=== PATIENT | female | born 1960 | race Caucasian/White ===

== ENCOUNTER 2019-08-13 12:39 | Outpatient (CLI) | payer MEDICARE, SELFPAY ==
--- NOTE | 2019-08-13 12:46 | MR_ITS ---
WS: [id number] MRI CERVICAL SPINE NONCONTRAST TECHNIQUE: Sagittal T1, T2 and STIR imaging. Axial T2, gradient, and fiesta imaging. CLINICAL INFORMATION: DEGENERATION INTERVERTEBRAL DISC CERVICAL COMPARISON: CT April 04, 2019 FINDINGS: Mild cervical curve. No high-grade central canal narrowing. Cord signal is normal. Disc bulging worse at C4-5. Anterior cervical fusion C5-C7. C2-C3: Normal. C3-C4: No significant disc bulging. Mild disc bulging. Mild facet arthropathy. Spinal canal and genevieve en are patent. C4-C5: Mild disc bulging with broad-based central disc protrusion. Moderate central canal stenosis. M oderate bilateral bony foraminal narrowing. Mild facet arthropathy. C5-C6: Anterior cervical fusion. Mild left and no significant right foraminal narrowing. Spinal canal is patent. C6-C7: Anterior cervical fusion. Mild to moderate left and no significant right foraminal narrowing. Mild central canal stenosis. C7-T1: No significant disc bulging. Spinal canal and foramen are patent. Tiny central disc protrusion T2-3. Visualized brain stem structures: Normal. Prevertebral soft tissues: Normal. MR/MR cervical spin wo con* [id number] IMPRESSION: 1. Postoperative changes anterior cervical fusion C5-C7. No high-grade central canal stenosis. 2. Cord signal is normal. 3. Disc bulging worse at C4-C5 with moderate central canal stenosis. 4. Multilevel mild to moderate bony foraminal narrowing worse at bilateral C4- 5, left C5-6, left C6-C7,
--- NOTE | 2019-08-13 12:46 | MR_ITS ---
WS: [id number] MRI LUMBAR SPINE WITH CONTRAST TECHNIQUE: Sagittal T1, T2 and STIR imaging. Axial T1 and T2 imaging. Post gadolinium imaging was obt ained. CLINICAL INFORMATION: LUMBAR POST-LAMINECTOMY SYNDROME COMPARISON: None. FINDINGS: Mild lumbar curve. No acute compression. No high-grade central canal stenosis. Prior postoperative ch anges L5-S1. Normal postoperative enhancement. Slight retrolisthesis L2 on L3. L1-L2: Mild annular bulging. Mild facet arthropathy. Spinal canal and foramen are patent. L2-L3: Right pericentral disc protrusion slightly impinges the traversing right L3 nerve root. Mild f acet arthropathy. Spinal canal and foramen are patent. L3-L4: Left subarticular disc protrusion impinges the traversing left L4 nerve root in the left subar ticular recess. Mild central canal stenosis. Mild facet arthropathy. Mild left foraminal narrowing. L4-L5: Mild annular bulging. Mild facet arthropathy. Mild left and no significant right foraminal nabil rowing. L5-S1: Prior postoperative changes laminectomy defects. Right eccentric disc osteophyte ridging with mild right foraminal narrowing. Left foramen is patent. Spinal canal is patent. Moderate facet arthro melly. Visualized pelvic bony structures: Normal. Paravertebral soft tissues: Normal. MR/MR lumbar spine wo/w con [id number] IMPRESSION: 1. Mild lumbar curve. No acute compression. No high-grade central canal stenos is. 2. Prior laminectomy defects L5-S1. No recurrent disc protrusion. 3. Mild right L5-S1 foraminal narrowing due to right eccentric disc osteophyte complex. 4. Right pericentral disc protrusion L2-3 with slight encroachment traversing L3 nerve root. 5. Mild central canal stenosis L3-4 with narrowing of the left greater than ri ght subarticular recess. 6. Mild to moderate facet arthropathy L3-L5.
--- NOTE | 2019-08-13 12:48 | XR_ITS ---
WS: [id number] XR lumbar spine f/e only [id number] REASON FOR EXAM: LUMBAR POST-LAMINECTOMY SYNDROME FINDINGS: A bat wing deformity with a pseudoarthrosis is noted on the right side. The disc spaces all appear to be essentially normal and there is no fractures noted. 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
--- NOTE | 2019-08-13 12:48 | XR_ITS ---
WS: [id number] XR cervical spine fl/ex [id number] REASON FOR EXAM: DEGENERATION, INTERVERTEBRAL DISC CERVICAL FINDINGS: Anterior fusion C5-C6-C7 with intraspinal spacers. Good alignment is seen. The remaining lateral the discs show no definite herniation heart degenerate changes. Flexion extension views were felt to be normal with normal motion. XR/XR cervical spine fl/ex [id number] IMPRESSION: Stable fusion anteriorly C5-C6-C7 with intraspinal spacers.
== END 2019-08-13 12:40 | disposition home or self-care (01) ==
LOC: RADWPI 12:44
PROVIDERS: Family Provider Electrodiagnostic Medicine; PCP Electrodiagnostic Medicine; Visit Provider Licensed Practical Nurse
DX: M96.1 Postlaminectomy syndrome, not elsewhere classified (principal); M50.30 Other cervical disc degeneration, unspecified cervical region; Z98.1 Arthrodesis status; M96.0 Pseudarthrosis after fusion or arthrodesis; M51.26 Other intervertebral disc displacement, lumbar region; M48.02 Spinal stenosis, cervical region
CPT/HCPCS: 72040; 72120; 72141; 72158; A9579

== ENCOUNTER 2020-08-03 14:09 | Emergency (ER) | payer MEDICARE, SELFPAY ==
[2020-08-03 14:13] VITALS: BP 173/115; PULSE 98; RESP 18; TEMP 37.3; O2SAT 98; BMI 31.0
--- NOTE | 2020-08-03 14:58 | XRR_ITS ---
PROCEDURE INFORMATION: Exam: XR Right Hip Exam date and time: 08/03/2020 3:10 PM Age: 60 years old Clinical indication: Hip pain; Right hip TECHNIQUE: Imaging protocol: XR Right hip. Views: 1 view hip with pelvis when performed. COMPARISON: CT abdomen pelvis w con* [id number] 07/27/2018 11:36 PM FINDINGS: Bones/joints: No fracture. Moderate joint space narrowing. Normal contour of the femoral head. Soft tissues: Unremarkable. XR/XR hip RT 2-3V wo/w pel* [id number] IMPRESSION: No acute findings. Degenerative/arthritic changes.
--- NOTE | 2020-08-03 16:03 | MRR_ITS ---
PROCEDURE INFORMATION: Exam: MR Lumbar Spine Without Contrast Exam date and time: 08/03/2020 5:00 PM Age: 60 years old Clinical indication: Sciatica; Right; Prior surgery; Surgery date: 6+ months; Surgery type: Laminectomy; Patient HX: R hip pain x 3 mos. Sever x 3 days with weakness; Additional info: R leg weakness, overflow incont TECHNIQUE: Imaging protocol: Multiplanar magnetic resonance images of the lumbar spine without intravenous contrast. COMPARISON: MR lumbar spine wo/w con [id number] 08/13/2019 12:47 PM FINDINGS: Vertebrae: Unremarkable. Spinal cord: Normal signal. No cord compression. L1-L2: No significant disc disease. No significant spinal canal stenosis. No neural foraminal stenosis. L2-L3: Mild disc bulge. Bilateral facet and ligamentum flavum hypertrophy. No spinal canal stenosis. Mild left neural foraminal narrowing. L3-L4: Disc bulge. Bilateral facet and ligamentum flavum hypertrophy. No spinal canal stenosis. Mild left neural foraminal narrowing. L4-L5: Disc bulge. Bilateral facet hypertrophy. No neural foraminal narrowing. L5-S1: Disc bulge. Bilateral facet hypertrophy. Moderate right neural foraminal narrowing. Soft tissues: Unremarkable. MR/MR lumbar spine wo con* [id number] IMPRESSION: No acute abnormality. Multilevel degenerative disc disease with neural foraminal narrowing. Mild left neural foraminal narrowing at L2-L3, L3-L4, moderate right at L5-S1.
--- NOTE | 2020-08-03 16:48 | W.ED.EXTPRO ---
Documented by User: Ralf Granados DO 08/04/20 07:58 HPI - Extremity Problem General: Chief complaint: Extremity Injury, Lower Stated complaint: no feeling, ability to bend upper part/right leg Time Seen by Provider: 08/03/20 15:37 History of Present Illness: HPI Narrative: 60-year-old female presents emergency room with complaint of right leg weakness. She previously had a back surgery and year ago she had an MRI and there are some concerns about some L3 nerve impingement there is also some concern about cervical issues. Is not having any neck pain at all has developed worsening radicular leg pain to the point now she is not able to flex her leg at all. She does have good dorsi and plantar flex strength on that right leg. She has had a little bit of difficulty with urination sounds like it may be overflow incontinence with occasional small losses. She is not had any fecal incontinence. MD Complaint: extremity pain Onset (ago): day(s) Pain Consistency: constant Location: right and lower extremity Quality: aching Relieving factors: immobilization Exacerbating factors: weight bearing and walking Associated symptoms: Deny arthralgias, chest pain, fever(s), myalgias, rash or short of breath Context: other (History of previous lumbar surgery) Review of Systems Const: Denies: fever(s) ENMT: Denies: throat pain, ear or mastoid pain, nasal discharge or nasal congestion Card: Denies: chest pain Resp: Denies: dyspnea, productive cough or non-productive cough GI: Denies: abdominal pain, nausea, vomiting, hematemesis, coffee ground emesis, diarrhea, constipation, bloating, hematochezia or melena : Denies: flank pain, difficulty voiding, dysuria, urinary frequency or urinary urgency Skin/Breast: Denies: rash PFSH ED PFSH: Medical History Cervical disc disorder with myelopathy of mid-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 Lumbar disc disease Lumbar post-laminectomy syndrome Spondylolisthesis of cervical region Stenosis of cervical spine with myelopathy Surgical History History of fusion of cervical spine (06/05/16) C5-C6, C6-C7 ACDFF History of lumbosacral spine surgery 2013 L5-S1 decompression Family History Grandmother Cancer Diabetes Heart disease Mother Osteoarthritis Social History Smoking and tobacco status: current every day smoker Alcohol intake: never Household members: children Marital status: / Current occupational status: disabled History of recent travel: No Physical Exam Const: COMMON NORMALS: no acute distress GENERAL APPEARANCE: cooperative and comfortable ORIENTATION/CONSCIOUSNESS: Yes awake, Yes oriented to person, Yes oriented to place and Yes oriented to time HENMT: COMMON NORMALS: normocephalic, atraumatic and hearing grossly normal bilaterally HEAD & SCALP: normocephalic and atraumatic Neck/C-Spine: COMMON NORMALS: no JVD Resp: COMMON NORMALS: normal respiratory effort, No retractions, No use of accessory muscles and clear to auscultation bilaterally AUSCULTATION: clear to auscultation bilaterally Cardio: COMMON NORMALS: no JVD, regular rate, regular rhythm and No murmurs present (Cardio) RATE: regular rate RHYTHM: regular rhythm GI: COMMON NORMALS: Soft to palpation and No hepatosplenomegaly present AUSCULTATION: Yes normoactive bowel sounds PALPATION: Yes Soft to palpation, No Tenderness to palpation present (GI), No Guarding due to palpation present (GI) and Yes No hepatosplenomegaly present Extremity: COMMON NORMALS: normal to inspection, capillary refill normal, no clubbing, cyanosis or edema, no calf tenderness and no pedal edema NARRATIVE EXTREMITY EXAM: Straight leg raising is positive on the right leg. There is normal deep tendon reflex at the patellar tendon bilaterally. Sensation normal dorsum plantar flex strength normal weakness at the hip flexors with minimal effort against gravity on the right normal on the left. Neuro: SENSORIUM/ORIENTATION: Yes oriented to person, Yes oriented to place and Yes oriented to time Skin: COMMON NORMALS: no rashes or lesions noted GENERAL SKIN EXAM: no rashes or lesions noted Course Vital Signs: Vital signs: Vital Signs Temperature 99.2 F 08/03/20 14:13 Pulse Rate 91 08/03/20 18:54 Respiratory Rate 18 08/03/20 18:32 Blood Pressure 167/92 08/03/20 18:54 Pulse Oximetry 96 08/03/20 18:54 MDM - Extremity (Nontraumatic) MDM Narrative: Medical decision making narrative: Concerning for rapid development and significant strength loss. Also little concerned that the complaint of frequent urination may be evidence of urinary retention with overflow incontinence. MRI of the lumbar spine ordered. Care transferred to Dr. Be at change of shift. Discharge Plan Discharge Patient Disposition: Home Clinical Impression: Low back pain Qualifiers: Chronicity: chronic Back pain laterality: unspecified Sciatica presence: without sciatica Qualified Code(s): M54.5 - Low back pain Condition: Stable Prescriptions: No Action gabapentin 300 mg capsule 300 mg PO TID RF: 0 metoprolol succinate 25 mg tablet extended release 24 hr 25 mg PO DAILY@20 RF: 0 duloxetine [Cymbalta] 30 mg capsule,delayed release(DR/EC) 30 mg PO DAILY@20 RF: 0 tizanidine [Zanaflex] 4 mg capsule 4 mg PO TID PRN (Reason: Muscle Spasm) RF: 0 ibuprofen 800 mg tablet 800 mg PO Q8H PRN (Reason: Pain) RF: 0 fluticasone propionate 50 mcg/actuation spray,suspension 2 spray INTRANASAL DAILY PRN (Reason: Allergy Symptoms) RF: 0 glimepiride 4 mg tablet 2 mg PO BID@06,20 RF: 0 omeprazole 40 mg capsule,delayed release(DR/EC) 40 mg PO DAILY@20 RF: 0 Tylenol Extra Strength 500 mg Tablet 1,500 mg PO PRN RF: 0 simvastatin 40 mg tablet 40 mg PO DAILY@20 RF: 0 metformin 500 mg tablet extended release 24 hr 500 mg PO BID@06,20 RF: 0 Excedrin Migraine 250-250-65 mg Tablet 2 tab PO PRN RF: 0 Discharge Orders: Discharge ED (Routine); Ordered 08/03/20 Ordered By: Arie Be Referrals: Italo Colindres, [Primary Care Provider] - 1-3 days Discharge Diet: Advance as tolerated Discharge Activity: Resume usual activity Patient Instructions: Acute Low Back Pain (ED), Opioid Safety Coding Level of Care Code ED Traditional Chinese Herbalist for Chg Fwd Documented by User: Arie Be MD 08/03/20 19:02 HPI - Extremity Problem General: Chief complaint: Extremity Injury, Lower Stated complaint: no feeling, ability to bend upper part/right leg Time Seen by Provider: 08/03/20 15:37 PFSH ED PFSH: Medical History Cervical disc disorder with myelopathy of mid-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 Lumbar disc disease Lumbar post-laminectomy syndrome Spondylolisthesis of cervical region Stenosis of cervical spine with myelopathy Surgical History History of fusion of cervical spine (06/05/16) C5-C6, C6-C7 ACDFF History of lumbosacral spine surgery 2013 L5-S1 decompression Family History Grandmother Cancer Diabetes Heart disease Mother Osteoarthritis Social History Smoking and tobacco status: current every day smoker Alcohol intake: never Household members: children Marital status: / Current occupational status: disabled History of recent travel: No Course Vital Signs: Vital signs: Vital Signs Temperature 99.2 F 08/03/20 14:13 Pulse Rate 91 08/03/20 18:54 Respiratory Rate 18 08/03/20 18:32 Blood Pressure 167/92 08/03/20 18:54 Pulse Oximetry 96 08/03/20 18:54 MDM - Extremity (Nontraumatic) MDM Narrative: Medical decision making narrative: Anette presents here with low back pain. MRI showed no signs of cord compression. She is to follow-up with her PCP. She has no signs of epidural abscess. She is return if worsening.She does have degenerative disc disease Imaging Data^: MRI: Radiologist's impression: [address] [address] Magnetic Resonance Report Signed Patient: Anette Liang Unit #: [id number] : 1960 Age/Sex: 60 / F ADM Date: 08/03/20 Loc: ER Room/Bed: Attending Dr: Ordering Provider/Ordering MD: Ralf Granados DO Date of Service: 08/03/20 Procedure(s): MR lumbar spine wo con* [id number] Accession Number(s): [id number] Report Number: [id number] PROCEDURE INFORMATION: Exam: MR Lumbar Spine Without Contrast Exam date and time: 08/03/2020 5:00 PM Age: 60 years old Clinical indication: Sciatica; Right; Prior surgery; Surgery date: 6+ months; Surgery type: Laminectomy; Patient HX: R hip pain x 3 mos. Sever x 3 days with weakness; Additional info: R leg weakness, overflow incont TECHNIQUE: Imaging protocol: Multiplanar magnetic resonance images of the lumbar spine without intravenous contrast. COMPARISON: MR lumbar spine wo/w con [id number] 08/13/2019 12:47 PM FINDINGS: Vertebrae: Unremarkable. Spinal cord: Normal signal. No cord compression. L1-L2: No significant disc disease. No significant spinal canal stenosis. No neural foraminal stenosis. L2-L3: Mild disc bulge. Bilateral facet and ligamentum flavum hypertrophy. No spinal canal stenosis. Mild left neural foraminal narrowing. L3-L4: Disc bulge. Bilateral facet and ligamentum flavum hypertrophy. No spinal canal stenosis. Mild left neural foraminal narrowing. L4-L5: Disc bulge. Bilateral facet hypertrophy. No neural foraminal narrowing. L5-S1: Disc bulge. Bilateral facet hypertrophy. Moderate right neural foraminal narrowing. Soft tissues: Unremarkable. MR/MR lumbar spine wo con* [id number] IMPRESSION: No acute abnormality. Multilevel degenerative disc disease with neural foraminal narrowing. Mild left neural foraminal narrowing at L2-L3, L3-L4, moderate right at L5-S1. Discharge Plan Discharge Patient Disposition: Home Clinical Impression: Low back pain Qualifiers: Chronicity: chronic Back pain laterality: unspecified Sciatica presence: without sciatica Qualified Code(s): M54.5 - Low back pain Condition: Stable Prescriptions: No Action gabapentin 300 mg capsule 300 mg PO TID RF: 0 metoprolol succinate 25 mg tablet extended release 24 hr 25 mg PO DAILY@20 RF: 0 duloxetine [Cymbalta] 30 mg capsule,delayed release(DR/EC) 30 mg PO DAILY@20 RF: 0 tizanidine [Zanaflex] 4 mg capsule 4 mg PO TID PRN (Reason: Muscle Spasm) RF: 0 ibuprofen 800 mg tablet 800 mg PO Q8H PRN (Reason: Pain) RF: 0 fluticasone propionate 50 mcg/actuation spray,suspension 2 spray INTRANASAL DAILY PRN (Reason: Allergy Symptoms) RF: 0 glimepiride 4 mg tablet 2 mg PO BID@06,20 RF: 0 omeprazole 40 mg capsule,delayed release(DR/EC) 40 mg PO DAILY@20 RF: 0 Tylenol Extra Strength 500 mg Tablet 1,500 mg PO PRN RF: 0 simvastatin 40 mg tablet 40 mg PO DAILY@20 RF: 0 metformin 500 mg tablet extended release 24 hr 500 mg PO BID@,20 RF: 0 Excedrin Migraine 250-250-65 mg Tablet 2 tab PO PRN RF: 0 Discharge Orders: Discharge ED (Routine); Ordered 08/03/20 Ordered By: Arie Be Referrals: Italo Colindres DO [Primary Care Provider] - 1-3 days Discharge Diet: Advance as tolerated Discharge Activity: Resume usual activity Patient Instructions: Acute Low Back Pain (ED), Opioid Safety Coding Level of Care Code ED Traditional Chinese Herbalist for Teresa Ashby
--- NOTE | 2020-08-03 17:24 | PC.NURSE ---
patient taken to [facility] for mri
--- NOTE | 2020-08-03 17:52 | PC.NURSE ---
patient returned from mri
[2020-08-03 18:32] VITALS: BP 163/64; PULSE 84; RESP 18; O2SAT 96
[2020-08-03 18:54] VITALS: BP 167/92; PULSE 91; O2SAT 96
== END 2020-08-03 18:57 | disposition home or self-care (01) ==
PROVIDERS: Emergency Provider Emergency Medicine; PCP Electrodiagnostic Medicine
DX: M54.5 Low back pain (principal); Z79.84 Long term (current) use of oral hypoglycemic drugs; F17.210 Nicotine dependence, cigarettes, uncomplicated
CPT/HCPCS: 51798; 72148; 73502; 99283

== ENCOUNTER 2021-05-26 03:50 | Emergency (ER) | payer MEDICARE, SELFPAY ==
[2021-05-26 04:02] VITALS: BP 180/93; PULSE 80; RESP 14; TEMP 36.7; O2SAT 94; BMI 29.6
--- NOTE | 2021-05-26 04:19 | ED_ITS ---
HPI - General Adult General: Chief complaint: General Medical Stated complaint: Leg pain Lt worse than Rt Time Seen by Provider: 05/26/21 04:00 Source: patient Mode of arrival: ambulatory Limitations: no limitations History of Present Illness: HPI narrative: 61-year-old female history of chronic back pain states over the last 1 to 2 weeks she has been having increasing left lower back pain with radiation down her left leg states that with standing or walking she has a sharp shooting pain down her leg states that her pain is mostly of 5 out of 10 improved with rest. Denies any bowel incontinence denies any injuries. Associated symptoms: Deny chest pain, dyspnea, headache(s), nausea, rash or vomiting Review of Systems Const: Denies: fever(s), chills, body aches or change in appetite Eyes: Denies: blurry vision or eye discomfort ENMT: Denies: throat pain or dental pain Card: Denies: chest pain Resp: Denies: dyspnea GI: Denies: abdominal pain, nausea, vomiting or diarrhea : Denies: dysuria Musc: Reports: back pain; Denies: neck pain Skin/Breast: Denies: rash Neuro: Denies: headache(s) Psych: Denies: depression Sha/Lymph: Denies: easy bruising All/Imm: Denies: urticaria PFSH ED PFSH: Medical History Cervical disc disorder with myelopathy of mid-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 Lumbar disc disease Lumbar post-laminectomy syndrome Spondylolisthesis of cervical region Stenosis of cervical spine with myelopathy Surgical History History of fusion of cervical spine (06/05/16) C5-C6, C6-C7 ACDFF History of lumbosacral spine surgery 2013 L5-S1 decompression Family History Grandmother Cancer Diabetes Heart disease Mother Osteoarthritis Social History Smoking and tobacco status: current every day smoker Alcohol intake: never Household members: children Marital status: / Current occupational status: disabled History of recent travel: No Physical Exam Const: COMMON NORMALS: no acute distress, patient oriented x3 and healthy appearing HENMT: COMMON NORMALS: normocephalic and atraumatic HEAD & SCALP: normocephalic and atraumatic Eye: COMMON NORMALS: EOMs intact bilaterally Neck/C-Spine: COMMON NORMALS: full ROM and supple Chest: COMMONS NORMALS: normal inspection of the chest Resp: COMMON NORMALS: normal respiratory effort, No retractions and No use of accessory muscles Cardio: COMMON NORMALS: regular rate RATE: regular rate GI: COMMON NORMALS: Normal to inspection, nondistended, normoactive bowel s ounds present, Soft to palpation, non-tender and no masses PALPATION: Yes Soft to palpation Back/Pelvis: OTHER: No midline tenderness tenderness to left lower back Extremity: COMMON NORMALS: normal to inspection and full ROM OTHER: Bilateral distal pulses intact no swelling no calf tenderness Neuro: COMMON NORMALS: patient oriented x3, moves all extremities and no focal motor deficits Psych: COMMON NORMALS: mental status grossly normal, Normal thought process present and cooperative THOUGHT PROCESS: Normal thought process present Skin: COMMON NORMALS: no rashes or lesions noted and no wounds GENERAL SKIN EXAM: no rashes or lesions noted Course Vital Signs: Vital signs: Vital Signs Temperature 98.1 F 05/26/21 04:02 Pulse Rate 80 05/26/21 04:02 Respiratory Rate 14 05/26/21 04:02 Blood Pressure 180/93 05/26/21 04:02 Pulse Oximetry 94 05/26/21 04:02 MDM - General Adult MDM Narrative: Medical decision making narrative: Patient presents with left low back pain with sciatica down her left leg. No signs of cord compression or epidural abscess she has no saddle anesthesia able ambulate. Lower legs no swelling no signs of DVT good pulses distally we will give her pain meds steroids place her on 5 days of steroids she is a diabetic I told her to watch her glucose closer and to monitor her diet she is to follow-up with PCP and return if worsening. Discharge Plan Discharge Patient Disposition: Home Clinical Impression: Sciatica of left side, Low back pain Condition: Stable Prescriptions: New hydrocodone-acetaminophen 5-325 mg tablet 1 tab PO Q6H PRN (Reason: pain) Qty: 14 RF: 0 prednisone 50 mg tablet 50 mg PO DAILY Qty: 5 RF: 0 No Action gabapentin 300 mg capsule 300 mg PO TID RF: 0 metoprolol succinate 25 mg tablet extended release 24 hr 25 mg PO DAILY@20 RF: 0 duloxetine [Cymbalta] 30 mg capsule,delayed release(DR/EC) 30 mg PO DAILY@20 RF: 0 tizanidine [Zanaflex] 4 mg capsule 4 mg PO TID PRN (Reason: Muscle Spasm) RF: 0 ibuprofen 800 mg tablet 800 mg PO Q8H PRN (Reason: Pain) RF: 0 fluticasone propionate 50 mcg/actuation spray,suspension 2 spray INTRANASAL DAILY PRN (Reason: Allergy Symptoms) RF: 0 glimepiride 4 mg tablet 2 mg PO BID@,20 RF: 0 omeprazole 40 mg capsule,delayed release(DR/EC) 40 mg PO DAILY@20 RF: 0 Tylenol Extra Strength 500 mg Tablet 1,500 mg PO PRN RF: 0 simvastatin 40 mg tablet 40 mg PO DAILY@20 RF: 0 metformin 500 mg tablet extended release 24 hr 500 mg PO BID@,20 RF: 0 Excedrin Migraine 250-250-65 mg Tablet 2 tab PO PRN RF: 0 Discharge Orders: Discharge ED (Routine); Ordered 05/26/21 Ordered By: Arie Be Referrals: Italo Colindres, [Primary Care Provider] - 1-3 days Discharge Diet: Advance as tolerated Discharge Activity: Resume usual activity Patient Instructions: Sciatica (ED), Opioid Safety Coding Level of Care Code ED Wink Cutter Operator for Teresa Ashby
[2021-05-26] MEDS: HYDROcodone-acetaminophen 7.5-325 mg Tablet 1 TAB PO (04:22)
[2021-05-26] MEDS: predniSONE 20 mg Tablet 60 MG PO (04:22)
== END 2021-05-26 04:28 | disposition home or self-care (01) ==
PROVIDERS: Emergency Provider Emergency Medicine; PCP Electrodiagnostic Medicine
DX: M54.42 Lumbago with sciatica, left side (principal); Z79.84 Long term (current) use of oral hypoglycemic drugs; F17.210 Nicotine dependence, cigarettes, uncomplicated
CPT/HCPCS: 99283; J7512

== ENCOUNTER 2021-06-24 08:31 | Emergency (ER) | payer MEDICARE, SELFPAY ==
[2021-06-24 08:48] VITALS: BP 177/113; PULSE 88; RESP 20; TEMP 36.8; O2SAT 97; BMI 29.6
--- NOTE | 2021-06-24 09:09 | ED_ITS ---
HPI - Extremity Problem General: Chief complaint: Extremity Problem,Nontraumatic Stated complaint: Lower back pain, all throughout legs aswell Time Seen by Provider: 06/24/21 08:33 Source: patient Mode of arrival: ambulatory Limitations: no limitations History of Present Illness: Patient complains about chronic low back pain that radiates down both legs. Patient says she has been here three times in the last 4 months for this and still having problems. She said medications not help that she is taken. Patient not follow-up Dr. Colindres. Patient also states she just started UTI symptoms last few days would like an antibiotic for that. MD Complaint: other (Chronic back pain) Onset (ago): year(s) Pain Consistency: intermittent Associated symptoms: Reports no associated symptoms Review of Systems General: Reports: 10 or more systems reviewed and unremarkable except in HPI and below : Reports: urinary frequency Musc: Reports: back pain (Chronic back pain that hurts with range of motion that radiates down the le) PFSH ED PFSH: Medical History Cervical disc disorder with myelopathy of mid-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 Lumbar disc disease Lumbar post-laminectomy syndrome Spondylolisthesis of cervical region Stenosis of cervical spine with myelopathy Surgical History History of fusion of cervical spine (06/05/16) C5-C6, C6-C7 ACDFF History of lumbosacral spine surgery 2013 L5-S1 decompression Family History Grandmother Cancer Diabetes Heart disease Mother Osteoarthritis Social History Smoking and tobacco status: current every day smoker Alcohol intake: never Household members: children Marital status: / Current occupational status: disabled History of recent travel: No Physical Exam Const: COMMON NORMALS: no acute distress GENERAL APPEARANCE: cooperative Resp: EFFORT & INSPECTION: Yes able to speak in complete sentences GI: INSPECTION: Yes normal to inspection Back/Pelvis: OTHER: Has tenderness both sciatic nerves down both legs thighs and down into the calf area. Patient able to raise legs. Able to ambulate. Course 2 Vital Signs: Vital signs: Vital Signs Temperature 98.3 F 06/24/21 09:33 Pulse Rate 88 06/24/21 09:33 Respiratory Rate 20 H 06/24/21 08:48 Blood Pressure 177/113 06/24/21 09:33 Pulse Oximetry 97 06/24/21 09:33 MDM - Extremity (Nontraumatic) Medical Decision Making Chronic low back pain with sciatica and also UTI symptoms. Patient encouraged follow-up primary care provider to see about getting MRI and possibly referral to Ortho back surgery. Discharge Plan Discharge Patient Disposition: Home Clinical Impression: Chronic bilateral low back pain, UTI (urinary tract infection), Hypertension Condition: Stable Prescriptions: New cephalexin 500 mg capsule 500 mg PO Q8H 7 Days Qty: 21 0RF Celebrex 100 mg capsule 200 mg PO BID Qty: 20 0RF cyclobenzaprine 5 mg tablet 5 mg PO TID PRN (Reason: muscle spasm) Qty: 10 0RF Discontinued clindamycin HCl 300 mg capsule 300 mg PO TID 7 Days Qty: 21 0RF tizanidine [Zanaflex] 4 mg capsule 4 mg PO TID PRN (Reason: Muscle Spasm) 0RF ibuprofen 800 mg tablet 800 mg PO Q8H PRN (Reason: Pain) 0RF No Action gabapentin 300 mg capsule 300 mg PO TID 0RF metoprolol succinate 25 mg tablet extended release 24 hr 25 mg PO DAILY@20 0RF duloxetine [Cymbalta] 30 mg capsule,delayed release(DR/EC) 30 mg PO DAILY@20 0RF fluticasone propionate 50 mcg/actuation spray,suspension 2 spray INTRANASAL DAILY PRN (Reason: Allergy Symptoms) 0RF glimepiride 4 mg tablet 2 mg PO BID@06,20 0RF omeprazole 40 mg capsule,delayed release(DR/EC) 40 mg PO DAILY@20 0RF Tylenol Extra Strength 500 mg Tablet 1,500 mg PO PRN 0RF simvastatin 40 mg tablet 40 mg PO DAILY@20 0RF metformin 500 mg tablet extended release 24 hr 500 mg PO BID@06,20 0RF Excedrin Migraine 250-250-65 mg Tablet 2 tab PO PRN 0RF Discharge Orders: Discharge ED (Routine); Ordered 06/24/21 Ordered By: Reymundo Durand Referrals: Italo Colindres, [Primary Care Provider] - Discharge Diet: Usual diet Patient Instructions: Urinary Tract Infection in Women (ED), Hypertension (ED), Chronic Back Pain (DC) Activity Restrictions/Additional Instructions: Follow-up with medical provider as directed. Take medications as prescribed. Return to the ER or your medical provider if condition worsens. Please read and understand discharge instructions. If any questions ask please. Check your blood pressure twice daily report readings after [address] Colindres. Follow-up Dr. Colindres see about getting new MRI done and possibly referral to orthopedic pediatric sports medicine specialist Dr. Gold. Coding Level of Care Code ED Metal Cut Off Saw Tender for Chg Fwd Exam Expanded Problem Focused
[2021-06-24 09:33] VITALS: BP 177/113; PULSE 88; TEMP 36.8; O2SAT 97
== END 2021-06-24 09:37 | disposition home or self-care (01) ==
PROVIDERS: Emergency Provider Nurse Practitioner Family; PCP Electrodiagnostic Medicine
DX: N39.0 Urinary tract infection, site not specified (principal); I10 Essential (primary) hypertension; G89.29 Other chronic pain; M54.50 Low back pain, unspecified; Z79.84 Long term (current) use of oral hypoglycemic drugs; F17.210 Nicotine dependence, cigarettes, uncomplicated
CPT/HCPCS: 99281

== ENCOUNTER → 2021-07-05 14:40 | Outpatient (BNVA) | payer MEDICARE, SELFPAY | PROVIDERS: PCP Electrodiagnostic Medicine; Referring Provider Electrodiagnostic Medicine; Visit Provider Physician Assistant | DX: M51.9 Unspecified thoracic, thoracolumbar and lumbosacral intervertebral disc disorder (principal); M16.0 Bilateral primary osteoarthritis of hip | CPT/HCPCS: 72110; 72170 ==

== ENCOUNTER 2021-07-15 19:22 | Emergency (ER) | payer MEDICARE, SELFPAY ==
[2021-07-15 19:29] VITALS: BP 127/83; PULSE 110; RESP 16; TEMP 36.2; O2SAT 96; BMI 28.3
--- NOTE | 2021-07-15 19:34 | XRR_ITS ---
PROCEDURE INFORMATION: Exam: XR Chest Exam date and time: 07/15/2021 7:34 PM Age: 61 years old Clinical indication: Fever TECHNIQUE: Imaging protocol: XR of the chest. Views: 1 view. COMPARISON: CR Chest 2 views* [id number] 04/04/2019 12:56 PM FINDINGS: Lungs: Unremarkable. No consolidation. Pleural spaces: Unremarkable. No pleural effusion. No pneumothorax. Heart/Mediastinum: Unremarkable. No cardiomegaly. Bones/joints: Unremarkable. XR/XR chest 1V portable [id number] IMPRESSION: No acute findings.
--- NOTE | 2021-07-15 19:34 | CTR_ITS ---
PROCEDURE INFORMATION: Exam: CT Abdomen And Pelvis With Contrast Exam date and time: 07/15/2021 7:34 PM Age: 61 years old Clinical indication: Fever and nausea; Abdominal pain; Generalized; Prior surgery; Surgery type: Gb. Lumbar laminectomy. ; Patient HX: Diffuse abd pain with nausea and diarrhea. Fever. TECHNIQUE: Imaging protocol: Computed tomography of the abdomen and pelvis with contrast. Radiation optimization: All CT scans at this facility use at least one of these dose optimization techniques: automated exposure control; mA and/or kV adjustment per patient size (includes targeted exams where dose is matched to clinical indication); or iterative reconstruction. Contrast material: OMNI 300; Contrast volume: 95 ml; Contrast route: INTRAVENOUS (IV); COMPARISON: CT abdomen pelvis w con* [id number] 07/27/2018 11:36 PM RADIATION DOSE METRICS: Total DLP (mGy-cm): 1712.79 FINDINGS: Liver: Hepatic steatosis. Gallbladder and bile ducts: Cholecystectomy. Pancreas: Normal. No ductal dilation. Spleen: Normal. No splenomegaly. Adrenal glands: Normal. No mass. Kidneys and ureters: Normal. No hydronephrosis. Stomach and bowel: Wall thickening throughout the colon suggestive of a colitis, perhaps with a chronic component or in part also related to nondistention, please correlate clinically. Stable lipoma seen in the ascending colon measuring 3.1 cm without findings of obstruction. Appendix: No evidence of appendicitis. Intraperitoneal space: Unremarkable. No free air. No significant fluid collection. Vasculature: Unremarkable. No abdominal aortic aneurysm. Lymph nodes: Unremarkable. No enlarged lymph nodes. Urinary bladder: Unremarkable as visualized. Reproductive: Unremarkable as visualized. Bones/joints: Unremarkable. No acute fracture. Soft tissues: Unremarkable. CT/CT abdomen pelvis w con* [id number] IMPRESSION: 1. Wall thickening throughout the colon suggestive of a colitis, perhaps with a chronic component or in part also related to nondistention, please correlate clinically. 2. Hepatic steatosis. 3. Cholecystectomy. 4. Stable lipoma seen in the ascending colon measuring 3.1 cm without findings of obstruction.
--- NOTE | 2021-07-15 19:47 | CTR_ITS ---
PROCEDURE INFORMATION: Exam: CT Head Without Contrast Exam date and time: 07/15/2021 7:47 PM Age: 61 years old Clinical indication: Altered mental status/memory loss and fever; Patient HX: Mild confusion with fever. ; Additional info: AMS TECHNIQUE: Imaging protocol: Computed tomography of the head without contrast. Radiation optimization: All CT scans at this facility use at least one of these dose optimization techniques: automated exposure control; mA and/or kV adjustment per patient size (includes targeted exams where dose is matched to clinical indication); or iterative reconstruction. COMPARISON: CT head wo con* [id number] 04/04/2019 2:18 PM RADIATION DOSE METRICS: Total DLP (mGy-cm): 782.5 FINDINGS: Brain: Normal. No hemorrhage. Unremarkable white matter. No mass effect. Cerebral ventricles: No ventriculomegaly. Paranasal sinuses: Visualized sinuses are unremarkable. No fluid levels. Mastoid air cells: Visualized mastoid air cells are well aerated. Bones/joints: Unremarkable. No acute fracture. Soft tissues: Unremarkable. CT/CT head wo con* [id number] IMPRESSION: No acute intracranial abnormality.
--- NOTE | 2021-07-15 19:50 | ED_ITS ---
HPI - Abdominal Pain General: Chief Complaint: Abdominal Pain Stated Complaint: Fever and weakness Time Seen by Provider: 07/15/21 19:25 Source: patient Mode of arrival: ambulatory Limitations: no limitations History of Present Illness: 61-year-old female states that she is just not felt well over the last 4 to 5 days. She states that she hit her head 5 days ago and since then she has been having some vomiting diarrhea abdominal pain and just feeling out of it at times she said in her full fevers as well. She denies any worsening improving factors patient is awake alert able answer all my questi ons appropriately here. Associated Symptoms: Reports diarrhea, nausea and vomiting; Denies dysuria Review of Systems Const: Reports: fatigue Eyes: Denies: blurry vision or eye discomfort ENMT: Denies: throat pain or dental pain Card: Denies: chest pain Resp: Denies: dyspnea GI: Reports: abdominal pain, nausea, vomiting and diarrhea : Denies: dysuria Musc: Denies: neck pain or back pain Skin/Breast: Denies: rash Neuro: Denies: headache(s) Psych: Denies: depression Sha/Lymph: Denies: easy bruising All/Imm: Denies: urticaria PFSH ED PFSH: Medical History Cervical disc disorder with myelopathy of mid-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 Lumbar disc disease Lumbar post-laminectomy syndrome Spondylolisthesis of cervical region Stenosis of cervical spine with myelopathy Surgical History History of fusion of cervical spine (06/05/16) C5-C6, C6-C7 ACDFF History of lumbosacral spine surgery 2013 L5-S1 decompression Family History Grandmother Cancer Diabetes Heart disease Mother Osteoarthritis Social History Smoking and tobacco status: current every day smoker Alcohol intake: never Household members: children Marital status: / Current occupational status: disabled History of recent travel: No Physical Exam Const: COMMON NORMALS: no acute distress, patient oriented x3 and healthy appearing HENMT: COMMON NORMALS: normocephalic and atraumatic HEAD & SCALP: normocephalic and atraumatic Eye: COMMON NORMALS: Equal, round and reactive pupils present and EOMs intact bilaterally PUPIL: Yes Equal, round and reactive pupils present Neck/C-Spine: COMMON NORMALS: full ROM and supple Chest: COMMONS NORMALS: normal inspection of the chest and normal palpation of entire chest wall Resp: COMMON NORMALS: normal respiratory effort, No retractions, No use of accessory muscles and clear to auscultation bilaterally AUSCULTATION: clear to auscultation bilaterally Cardio: COMMON NORMALS: regular rate, regular rhythm and No murmurs present (Cardio) RATE: regular rate RHYTHM: regular rhythm GI: COMMON NORMALS: Normal to inspection, nondistended, normoactive bowel so unds present, Soft to palpation, non-tender and no masses PALPATION: Yes Soft to palpation Extremity: COMMON NORMALS: normal to inspection and full ROM Neuro: COMMON NORMALS: patient oriented x3, moves all extremities and no focal motor deficits Psych: COMMON NORMALS: mental status grossly normal, Normal thought process present and cooperative THOUGHT PROCESS: Normal thought process present Skin: COMMON NORMALS: no rashes or lesions noted and no wounds GENERAL SKIN EXAM: no rashes or lesions noted Course Vital Signs: Vital signs: Vital Signs Temperature 97.2 F L 07/15/21 19:29 Pulse Rate 91 07/15/21 22:14 Respiratory Rate 17 07/15/21 22:14 Blood Pressure 161/92 07/15/21 22:14 Pulse Oximetry 93 07/15/21 22:14 MDM - Abdominal Pain Medical Decision Making Patient presents here with abdominal pain does have some dehydration she was much improved after 2 L of IV fluids CT showed colitis we will start [facility] nausea medicine pain medicine get her follow-up with surgery she is to return if worsening she understands and agrees to plan. Lab Data : 07/15/21 19:45 07/15/21 19:45 Labs/Radiology: Radiology Impressions Abdomen/Pelvis CT 07/15/21 19:34 IMPRESSION: 1. Wall thickening throughout the colon suggestive of a colitis, perhaps with a chronic component or in part also related to nondistention, please correlate clinically. 2. Hepatic steatosis. 3. Cholecystectomy. 4. Stable lipoma seen in the ascending colon measuring 3.1 cm without findings of obstruction. Chest X-Ray 07/15/21 19:34 IMPRESSION: No acute findings. Head CT 07/15/21 19:47 IMPRESSION: No acute intracranial abnormality. Laboratory Results WBC 13.3 10^3/uL (4.0-10.0) H 07/15/21 19:45 RBC 5.29 10^6/uL (4.1-5.3) 07/15/21 19:45 Hgb 15.5 g/dL (11.5-15.3) H 07/15/21 19:45 Hct 46.1 % (37.0-47.0) 07/15/21 19:45 MCV 87.1 fl (81-99) 07/15/21 19:45 MCH 29.3 pg (28.0-34.0) 07/15/21 19:45 MCHC 33.6 g/dL (30.0-36.0) 07/15/21 19:45 RDW 14.2 % (12.1-15.1) 07/15/21 19:45 Plt Count 173 10^3/cmm (130-400) 07/15/21 19:45 MPV 11.7 fL (7.4-10.4) H 07/15/21 19:45 Neut % (Auto) 77.6 % 07/15/21 19:45 Lymph % (Auto) 7.7 % 07/15/21 19:45 [place] % (Auto) 12.6 % 07/15/21 19:45 Eos % (Auto) 0.5 % 07/15/21 19:45 Baso % (Auto) 0.8 % 07/15/21 19:45 Neut # (Auto) 10.31 10^3/uL (1.8-7.7) H 07/15/21 19:45 Lymph # (Auto) 1.0 10^3/uL (0.8-4.8) 07/15/21 19:45 [place] # (Auto) 1.7 10^3/uL (0.2-0.9) H 07/15/21 19:45 Eos # (Auto) 0.1 10^3/uL (0.0-0.8) 07/15/21 19:45 Baso # (Auto) 0.1 10^3/uL (0.0-0.1) 07/15/21 19:45 Nucleated RBC % (auto) 0 % 07/15/21 19:45 Nucleated RBCs # 0.0 /100WBC 07/15/21 19:45 Sodium 129 mmol/L (136-145) L 07/15/21 19:45 Potassium 3.3 mmol/L (3.5-5.1) L 07/15/21 19:45 Chloride 92 mmol/L (98-107) L 07/15/21 19:45 Carbon Dioxide 17 mmol/L (22-29) L 07/15/21 19:45 Anion Gap 23.3 (5-19) H 07/15/21 19:45 BUN 19 mg/dL (8-23) 07/15/21 19:45 Creatinine 0.8 mg/dL (0.5-0.9) 07/15/21 19:45 GFR Calculation 72.4 mL/min (90-130) L 07/15/21 19:45 Glucose 173 mg/dL (65-115) H 07/15/21 19:45 Calculated Osmolality 274 mOsm/kg (285-295) L 07/15/21 19:45 Lactate 1.1 mmol/L (0.5-2.2) 07/15/21 19:45 Calcium 9.7 mg/dL (8.5-10.5) 07/15/21 19:45 Total Bilirubin 0.4 mg/dL (0.15-1.2) 07/15/21 19:45 AST 27 U/L (0-32) 07/15/21 19:45 ALT 21 U/L (0-33) 07/15/21 19:45 Alkaline Phosphatase 115 IU/L (35-105) H 07/15/21 19:45 Total Protein 7.7 g/dL (6.6-8.7) 07/15/21 19:45 Albumin 3.8 g/dL (3.5-5.2) 07/15/21 19:45 Globulin 3.9 g/dL (1.3-4.6) 07/15/21 19:45 Lipase 59 U/L (13-60) 07/15/21 19:45 Urine Color Dark yellow (Yellow) 07/15/21 20:00 Urine Appearance Sl hazy (CLEAR) 07/15/21 20:00 Urine pH 5 (5-7) 07/15/21 20:00 Ur Specific [place] 1.020 (1.005-1.030) 07/15/21 20:00 Urine Protein 3+ (Negative) H 07/15/21 20:00 Urine Glucose (UA) Norm (Normal) 07/15/21 20:00 Urine Ketones 1+ (Negative) H 07/15/21 20:00 Urine Blood 3+ (Negative) H 07/15/21 20:00 Urine Nitrate Negative (Negative) 07/15/21 20:00 Urine Bilirubin 1+ (Negative) H 07/15/21 20:00 Urine Urobilinogen 1 mg/dL (Negative) H 07/15/21 20:00 Ur Leukocyte Esterase 1+ (Negative) H 07/15/21 20:00 Urine RBC Too numerous to cnt /hpf (0-2) H 07/15/21 20:00 Urine WBC 5-10 /hpf (0-5) H 07/15/21 20:00 Ur Squamous Epith Cells 5-10 /hpf (0-5) H 07/15/21 20:00 Amorphous Sediment Not Reportable 07/15/21 20:00 Urine Bacteria 1+ /hpf (NONE) H 07/15/21 20:00 Urine Mucus 1+ /hpf 07/15/21 20:00 Discharge Plan Discharge Patient Disposition: Home Clinical Impression: Colitis Condition: Stable Prescriptions: New hydrocodone-acetaminophen 5-325 mg tablet 1 tab PO Q6H PRN (Reason: pain) Qty: 14 0RF ondansetron 4 mg tablet,disintegrating 4 mg PO Q6H PRN (Reason: nausea and vomiting) Qty: 14 0RF metronidazole 500 mg tablet 500 mg PO Q8H 7 Days Qty: 21 0RF Cipro 500 mg tablet 500 mg PO BID Qty: 14 0RF No Action prednisone 20 mg tablet 20 mg PO DAILY 0RF gabapentin 300 mg capsule 300 mg PO TID 0RF metoprolol succinate 25 mg tablet extended release 24 hr 25 mg PO DAILY@20 0RF duloxetine [Cymbalta] 30 mg capsule,delayed release(DR/EC) 30 mg PO DAILY@20 0RF fluticasone propionate 50 mcg/actuation spray,suspension 2 spray INTRANASAL DAILY PRN (Reason: Allergy Symptoms) 0RF glimepiride 4 mg tablet 2 mg PO BID@06,20 0RF Celebrex 100 mg capsule 200 mg PO BID Qty: 20 0RF cyclobenzaprine 5 mg tablet 5 mg PO TID PRN (Reason: muscle spasm) Qty: 10 0RF omeprazole 40 mg capsule,delayed release(DR/EC) 40 mg PO DAILY@20 0RF Tylenol Extra Strength 500 mg Tablet 1,500 mg PO PRN 0RF simvastatin 40 mg tablet 40 mg PO DAILY@20 0RF metformin 500 mg tablet extended release 24 hr 500 mg PO BID@06,20 0RF Excedrin Migraine 250-250-65 mg Tablet 2 tab PO PRN 0RF Discharge Orders: Discharge ED (Routine); Ordered 07/15/21 Ordered By: Arie Be Referrals: Pan Fofana MD [Physician] - 1-3 days Italo Colindres DO [Primary Care Provider] - Discharge Diet: Advance as tolerated Discharge Activity: Resume usual activity Patient Instructions: Colitis (ED) Coding Level of Care Code ED Production Line Solderer for Chg Fwd Exam Comprehensive
[2021-07-15 19:55] LABS: Basophils # 0.1 10^3/uL (0.0-0.1); Basophils % 0.8 %; Eosinophils # 0.1 10^3/uL (0.0-0.8); Eosinophils % 0.5 %; Hematocrit 46.1 % (37.0-47.0); Hemoglobin 15.5 g/dL (11.5-15.3); Lymphocytes % 7.7 %; Mean Corpuscular HGB Conc 33.6 g/dL (30.0-36.0); Mean Corpuscular Hemoglobin 29.3 pg (28.0-34.0); Mean Corpuscular Volume 87.1 fl (81-99); Mean Platelet Volume 11.7 fL (7.4-10.4); Monocytes # 1.7 10^3/uL (0.2-0.9); Monocytes % 12.6 %; Neutrophils # 10.31 10^3/uL (1.8-7.7); Neutrophils % 77.6 %; Nucleated Red Blood Cells % 0 %; Platelet Count 173 10^3/cmm (130-400); Red Blood Count 5.29 10^6/uL (4.1-5.3); Red Cell Distribution Width 14.2 % (12.1-15.1); White Blood Count 13.3 10^3/uL (4.0-10.0)
[2021-07-15] MEDS: ondansetron 2 mg/ML SDV 2 mL 4 MG IVP (20:06)
[2021-07-15] MEDS: sodium chloride 0.9% 1,000 ML 999 ML IV ×2 (20:06→20:57)
[2021-07-15 20:16] LABS: Alanine Aminotransferase 21 U/L (0-33); Albumin Level 3.8 g/dL (3.5-5.2); Alkaline Phosphatase 115 IU/L (35-105); Aspartate Amino Transferase 27 U/L (0-32); Blood Urea Nitrogen 19 mg/dL (8-23); Calcium 9.7 mg/dL (8.5-10.5); Carbon Dioxide 17 mmol/L (22-29); Chloride 92 mmol/L (98-107); Globulin 3.9 g/dL (1.3-4.6); Glomerular Filtration Rate 72.4 mL/min (90-130); Glucose 173 mg/dL (65-115); Lipase 59 U/L (13-60); Osmolality Calculated 274 mOsm/kg (285-295); Sodium 129 mmol/L (136-145); Total Bilirubin 0.4 mg/dL (0.15-1.2); Total Protein 7.7 g/dL (6.6-8.7)
[2021-07-15 20:17] LABS: Lactate (Lactic Acid level) 1.1 mmol/L (0.5-2.2)
[2021-07-15 20:19] LABS: Anion Gap 23.3 (5-19); Potassium 3.3 mmol/L (3.5-5.1)
[2021-07-15 20:20] LABS: Urine Appearance SL Hazy (CLEAR); Urine Color Dark Yellow (Yellow); pH Urine 5 (5-7)
[2021-07-15 20:21] LABS: Add Urine Culture? Yes; Add Urine Microscopic? YES; Bacteria Urine 1+ /hpf; Bilirubin Urine 1+ (Negative); Blood Urine 3+ (Negative); Glucose Urine UA Norm (Normal); Ketones Urine 1+ (Negative); Leukocyte Esterase Urine 1+ (Negative); Mucus Urine 1+ /hpf; Nitrate Urine Negative (Negative); Protein Urine 3+ (Negative); RBC Urine TOO NUMEROUS TO CNT /hpf (0-2); Urobilinogen Urine 1 mg/dL (Negative)
[2021-07-15] MEDS: iohexol 300 mg/mL 100 mL Btl IV (20:36)
[2021-07-15 20:56] VITALS: RESP 18
[2021-07-15] MEDS: HYDROmorphone 1 mg/mL INJ 1 mL 0.5 MG IVP (20:56)
[2021-07-15 21:01] VITALS: BP 136/65; PULSE 95; RESP 18; O2SAT 96
[2021-07-15] MEDS: HYDROcodone-acetaminophen 5-325 mg Tablet 1 TAB PO (22:06)
[2021-07-15 22:14] VITALS: BP 161/92; PULSE 91; RESP 17; O2SAT 93
--- NOTE | 2021-07-18 11:27 | DCPLANNER ---
Addendum entered by Aye Stone 07/22/21 14:34: Patient had a follow up appointment scheduled for 07.19.21 with general surgery - patient did attend appointment. Original Note: medical clinic manager had message to schedule a follow up appointment for patient with general surgery. medical clinic manager emailed patients information to Darline Radford and Mariza at [facility] General Surgery / ENT clinic. Patients information would be printed and reviewed. Clinic will call patient with appointment information.
== END 2021-07-15 22:15 | disposition home or self-care (01) ==
PROVIDERS: Emergency Provider Emergency Medicine; PCP Electrodiagnostic Medicine
DX: K52.9 Noninfective gastroenteritis and colitis, unspecified (principal); R11.2 Nausea with vomiting, unspecified; E86.0 Dehydration; F17.200 Nicotine dependence, unspecified, uncomplicated; Z91.81 History of falling
CPT/HCPCS: 70450; 71045; 74177; 80053; 81001; 83605; 83690; 85025; 87040; 87077; 87086; 87205; 87493; 87506; 96361; 96374; 96375; 99284; J1170; J2405; J7030; Q9967

== ENCOUNTER 2021-07-25 13:19 | Outpatient (CLI) | payer MEDICARE, SELFPAY | END 2021-07-25 13:20 | disposition home or self-care (01) | PROVIDERS: PCP Electrodiagnostic Medicine; Visit Provider Surgery | DX: K52.9 Noninfective gastroenteritis and colitis, unspecified (principal) | CPT/HCPCS: 83630; 87177; 87209; 87493; 87506 ==

== ENCOUNTER 2021-07-30 11:14 | Emergency (ER) | payer MEDICARE, SELFPAY ==
[2021-07-30 11:20] VITALS: BP 157/86; PULSE 84; RESP 18; TEMP 36.8; O2SAT 98; BMI 29.6
--- NOTE | 2021-07-30 11:25 | W.ED.ABDPA2 ---
HPI - Abdominal Pain General: Chief Complaint: Abdominal Pain Stated Complaint: Dr. Colindres sent, sick to stomach, lightheaded Time Seen by Provider: 07/30/21 11:25 History of Present Illness: Ms. Liang is a 61-year-old lady with history of diabetes who presents emergency department due to abnormal lab results. Approximately 3 weeks ago she began having right-sided abdominal discomfort associated with diarrhea. She was previously evaluated and found to have colitis, she completed course of Cipro and Flagyl however diarrhea has persisted. She saw her PCP 2 days ago and had labs drawn. Lab results yesterday reportedly showed elevated BUN to creatinine ratio and elevated A1c and she was referred to the emergency department for further management. The patient does report episodes of lightheadedness and occasional dizziness without specific provoking events over the past few days. Additionally she has had generalized malaise and weakness. She denies respiratory infectious symptoms. She denies vomiting. Overall the intensity of her abdominal discomfort is remained largely the same. No other specific changes in health, exacerbating, relieving factors identified. Pertinent past history: other Onset (ago): week(s) Pain Consistency: intermittent Severity: moderate Quality: cramping and aching Review of Systems General: Reports: 10 or more systems reviewed and unremarkable except in HPI and below PFSH ED PFSH: Medical History Cervical disc disorder with myelopathy of mid-cervical region Diabetes mellitus Diabetic retinopathy Dyslipidemia Hypertension Intervertebral disc disorder with radiculopathy of lumbosacral region Lumbar disc disease Lumbar post-laminectomy syndrome Neuropathy Spondylolisthesis of cervical region Stenosis of cervical spine with myelopathy Surgical History History of cholecystectomy 1999 History of colonoscopy 2010 History of fusion of cervical spine (06/05/16) C5-C6, C6-C7 ACDFF History of lumbosacral spine surgery 2013 L5-S1 decompression Family History Grandmother Cancer Diabetes Heart disease Mother Osteoarthritis Social History Smoking and tobacco status: current every day smoker Alcohol intake: never Household members: children Marital status: / Current occupational status: disabled History of recent travel: No Physical Exam Const: COMMON NORMALS: patient oriented x3 and alert GENERAL APPEARANCE: cooperative and well developed HENMT: COMMON NORMALS: normocephalic and atraumatic HEAD & SCALP: normocephalic and atraumatic THROAT: posterior oropharynx normal Eye: COMMON NORMALS: conjunctivae normal CONJUNCTIVA: Yes conjunctivae normal SCLERA: sclerae normal Neck/C-Spine: COMMON NORMALS: supple GENERAL: Yes trachea midline Resp: COMMON NORMALS: normal respiratory effort EFFORT & INSPECTION: Yes able to speak in complete sentences Cardio: COMMON NORMALS: regular rate and regular rhythm RATE: regular rate RHYTHM: regular rhythm GI: COMMON NORMALS: Soft to palpation PALPATION: Yes Soft to palpation, Yes Tenderness to palpation present (GI) (Mild), No Guarding due to palpation present (GI) and No Rigid due to palpation PERCUSSION: normal to percussion Extremity: GENERAL: Yes normal exam except as noted and No edema Neuro: COMMON NORMALS: patient oriented x3, CN's II-XII intact bilaterally, moves all extremities, no focal motor deficits and no sensory deficits noted SENSORIUM/ORIENTATION: Yes alert and No Orientation impaired Psych: COMMON NORMALS: mental status grossly normal and Normal thought process present THOUGHT PROCESS: Normal thought process present Course ED course: - Patient was seen and evaluated by me at bedside - Patient placed on cardiac monitors, IV access obtained - Initial evaluation notable for exam as above -IV fluids given - Labs notable for no leukocytosis, normal hemoglobin. Metabolic panel with normal creatinine, glucose is elevated however there is no evidence of metabolic derangement associated with this including DKA. Urinalysis not concerning for urinary tract infection with squamous epithelial contamination. - Imaging notable for no acute finding identified on chest x-ray. Head CT negative for acute intracranial hemorrhage or mass. CT abdomen pelvis without evidence of acute finding to explain abdominal discomfort. I did discuss submucosal fat deposition with patient including need for further outpatient evaluation with consideration for endoscopy. - Upon serial reexamination after treatment the patient was improved - Based on patient history, evaluation, labs, and imaging as interpreted the most likely cause of the patient's condition is abnormal laboratory values likely associated with chronic disease as well as abdominal pain of unspecified etiology. - The results of ED evaluation were discussed with the patient including the difference between likely PCP testing which probably showed more microdamage related to poorly controlled diabetes as opposed to overall preserved renal function in the emergency department. I did discuss need for better glucose control as well as PCP follow-up. I discussed prescriptions and/or symptomatic cares (if applicable) including appropriate and responsible use, followup plan, and return precautions. The patient verbalized understanding and felt safe for discharge. - Patient discharged in satisfactory condition. Note: Click bubbles or prepopulated jasso in note writing are used for assistance with data collection and billing and are inherently more limited than narrative and other text portions of this note. Please use narrative for additional clinical history and defer to narrative/free test for any case of contradictory information. If information appears in only free text or click bubble it should be considered present or absent as reported. Please contact note repairer typewriter for clarifications of clinical information or contradictory information. MDM is a brief summary, contradictory or erroneous seeming information should be clarified and full note should be reviewed. Vital Signs: Vital signs: Vital Signs Temperature 98.2 F 07/30/21 11:20 Pulse Rate 78 07/30/21 15:49 Respiratory Rate 18 07/30/21 15:49 Blood Pressure 170/80 07/30/21 15:49 Pulse Oximetry 95 07/30/21 15:49 MDM - Abdominal Pain Medical Decision Making 61-year-old lady with history of diabetes presenting due to abnormal labs. She additionally endorses a history of abdominal pain which has been continued. ED evaluation negative for acute pathology or abnormal labs requiring inpatient evaluation. Patient satisfactory for outpatient management. Medical Records I reviewed the patient's medical records. Lab Data I reviewed the patient's lab results. : 07/30/21 11:42 07/30/21 11:42 Labs/Radiology: Radiology Impressions Chest X-Ray 07/30/21 11:49 IMPRESSION: No acute findings. Head CT 07/30/21 11:49 IMPRESSION: No acute intracranial abnormality. Abdomen/Pelvis CT 07/30/21 13:24 IMPRESSION: 1. No acute findings. 2. There is submucosal fat deposition within the terminal ileum, cecum, ascending colon, and proximal transverse colon. This is a nonspecific finding and could be incidental, however, this could also be indirect sign of recurrent inflammation. Correlate with clinical history. Laboratory Results WBC 8.1 10^3/uL (4.0-10.0) 07/30/21 11:42 RBC 4.46 10^6/uL (4.1-5.3) 07/30/21 11:42 Hgb 13.3 g/dL (11.5-15.3) 07/30/21 11:42 Hct 41.7 % (37.0-47.0) 07/30/21 11:42 MCV 93.5 fl (81-99) 07/30/21 11:42 MCH 29.8 pg (28.0-34.0) 07/30/21 11:42 MCHC 31.9 g/dL (30.0-36.0) 07/30/21 11:42 RDW 15.7 % (12.1-15.1) H 07/30/21 11:42 Plt Count 257 10^3/cmm (130-400) 07/30/21 11:42 MPV 11.2 fL (7.4-10.4) H 07/30/21 11:42 Neut % (Auto) 52.6 % 07/30/21 11:42 Lymph % (Auto) 35.2 % 07/30/21 11:42 [place] % (Auto) 8.1 % 07/30/21 11:42 Eos % (Auto) 3.0 % 07/30/21 11:42 Baso % (Auto) 0.7 % 07/30/21 11:42 Neut # (Auto) 4.26 10^3/uL (1.8-7.7) 07/30/21 11:42 Lymph # (Auto) 2.9 10^3/uL (0.8-4.8) 07/30/21 11:42 [place] # (Auto) 0.7 10^3/uL (0.2-0.9) 07/30/21 11:42 Eos # (Auto) 0.2 10^3/uL (0.0-0.8) 07/30/21 11:42 Baso # (Auto) 0.1 10^3/uL (0.0-0.1) 07/30/21 11:42 Nucleated RBC % (auto) 0 % 07/30/21 11:42 Nucleated RBCs # 0.0 /100WBC 07/30/21 11:42 Sodium 141 mmol/L (136-145) 07/30/21 11:42 Potassium 3.8 mmol/L (3.5-5.1) 07/30/21 11:42 Chloride 103 mmol/L (98-107) 07/30/21 11:42 Carbon Dioxide 24 mmol/L (22-29) 07/30/21 11:42 Anion Gap 17.8 (5-19) 07/30/21 11:42 BUN 8 mg/dL (8-23) 07/30/21 11:42 Creatinine 0.6 mg/dL (0.5-0.9) 07/30/21 11:42 GFR Calculation 101.0 mL/min (90-130) 07/30/21 11:42 Glucose 200 mg/dL (65-115) H 07/30/21 11:42 POC Glucose 205 mg/dL (70-110) H 07/30/21 11:56 Calculated Osmolality 296 mOsm/kg (285-295) H 07/30/21 11:42 Calcium 9.5 mg/dL (8.5-10.5) 07/30/21 11:42 Total Bilirubin 0.2 mg/dL (0.15-1.2) 07/30/21 11:42 AST 32 U/L (0-32) 07/30/21 11:42 ALT 23 U/L (0-33) 07/30/21 11:42 Alkaline Phosphatase 138 IU/L (35-105) H 07/30/21 11:42 Troponin T Baseline 6 ng/L (0-10) 07/30/21 11:42 Troponin T 120 Minute 6.52 ng/L (0-10) 07/30/21 13:42 Delta Troponin T 0.52 ABS# (0-10) 07/30/21 13:42 Total Protein 7.5 g/dL (6.6-8.7) 07/30/21 11:42 Albumin 4.2 g/dL (3.5-5.2) 07/30/21 11:42 Globulin 3.3 g/dL (1.3-4.6) 07/30/21 11:42 TSH 2.43 uIU/mL (0.27-4.20) 07/30/21 11:42 Urine Color Yellow (Yellow) 07/30/21 11:40 Urine Appearance Clear (CLEAR) 07/30/21 11:40 Urine pH 6 (5-7) 07/30/21 11:40 Ur Specific [place] 1.010 (1.005-1.030) 07/30/21 11:40 Urine Protein 1+ (Negative) H 07/30/21 11:40 Urine Glucose (UA) Norm (Normal) 07/30/21 11:40 Urine Ketones Negative (Negative) 07/30/21 11:40 Urine Blood 3+ (Negative) H 07/30/21 11:40 Urine Nitrate Negative (Negative) 07/30/21 11:40 Urine Bilirubin Neg (Negative) 07/30/21 11:40 Urine Urobilinogen Norm mg/dL (Negative) 07/30/21 11:40 Ur Leukocyte Esterase Negative (Negative) 07/30/21 11:40 Urine RBC 5-10 /hpf (0-2) H 07/30/21 11:40 Urine WBC 0-4 /hpf (0-5) H 07/30/21 11:40 Ur Squamous Epith Cells 15-25 /hpf (0-5) H 07/30/21 11:40 Amorphous Sediment Not Reportable 07/30/21 11:40 Urine Bacteria 1+ /hpf (NONE) H 07/30/21 11:40 Serum Ketones Negative (Negative) 07/30/21 11:42 EKG Data EKG 1: I personally reviewed and interpreted this EKG as follows: EKG interpretation date: 07/30/21 EKG interpretation time: 12:00 Interpretation: Twelve-lead EKG shows a regular rhythm at a rate of 77. MS interval 130, QRS duration 99, QTc 420. Normal axis. Interpretation: Sinus rhythm. EKG 2: I personally reviewed and interpreted this EKG as follows: EKG interpretation date: 07/30/21 EKG interpretation time: 14:10 Interpretation: Twelve-lead EKG shows a regular rhythm at a rate of 89. MS interval 140 castration 88, QTc 434. Normal axis. Interpretation: Sinus rhythm. Discharge Plan Discharge Patient Disposition: Home Clinical Impression: Light-headed feeling, Abdominal pain Condition: Stable Prescriptions: No Action gabapentin 300 mg capsule 600 mg PO TID 0RF metoprolol succinate 25 mg tablet extended release 24 hr 25 mg PO DAILY@20 0RF duloxetine [Cymbalta] 30 mg capsule,delayed release(DR/EC) 30 mg PO BEDTIME 0RF glimepiride 4 mg tablet 4 mg PO DAILY 0RF omeprazole 40 mg capsule,delayed release(DR/EC) 40 mg PO DAILY@20 0RF acetaminophen [Tylenol Extra Strength] 500 mg Tablet 1,500 mg PO DAILY PRN (Reason: Pain) 0RF simvastatin 40 mg tablet 40 mg PO DAILY@20 0RF metformin 500 mg tablet extended release 24 hr 500 mg PO BID@06,20 0RF ondansetron 4 mg tablet,disintegrating 4 mg PO Q6H PRN (Reason: nausea and vomiting) Qty: 14 0RF baclofen 10 mg Tablet 10 mg PO BID 0RF Celebrex 100 mg Capsule 100 mg PO BID 0RF Discharge Orders: Discharge ED (Routine); Ordered 07/30/21 Ordered By: Nav Gamez Referrals: Italo Colindres DO [Primary Care Provider] - Discharge Diet: Diabetic Discharge Activity: Resume usual activity Patient Instructions: Abdominal Pain (ED), Lightheadedness (ED) Activity Restrictions/Additional Instructions: Thank you for visiting the emergency department. You were seen and evaluated for lightheadedness, generalized symptoms, and continued abdominal pain as well as abnormal labs. Your laboratory studies in the emergency department are mostly within normal limits. You do have a elevated glucose however there is no evidence of significant metabolic derangement associated with this. Your creatinine here is normal. As discussed, the laboratory testing that may have been done by your primary care provider is more sensitive looking at microdamage to your kidneys as opposed to overall function which we measure. However, based on studies here you do not require inpatient treatment. Please follow-up with your primary care provider. Improved blood sugar control will likely help prevent further damage. Please continue to follow-up with general surgery for endoscopy. Please return to the emergency department for worsening symptoms or anything else that you are concerned about a feel needs emergency department evaluation. Coding Level of Care Code ED Surveillance Investigator for Teresa Fwd Exam Comprehensive
--- NOTE | 2021-07-30 11:49 | CTR_ITS ---
PROCEDURE INFORMATION: Exam: CT Head Without Contrast Exam date and time: 07/30/2021 11:49 AM Age: 61 years old Clinical indication: Dizziness; Additional info: Lightheaded/dizzy TECHNIQUE: Imaging protocol: Computed tomography of the head without contrast. Radiation optimization: All CT scans at this facility use at least one of these dose optimization techniques: automated exposure control; mA and/or kV adjustment per patient size (includes targeted exams where dose is matched to clinical indication); or iterative reconstruction. COMPARISON: CT head wo con* [id number] 07/15/2021 8:38 PM RADIATION DOSE METRICS: Total DLP (mGy-cm): 1702.65 FINDINGS: Brain: Normal. No hemorrhage. Unremarkable white matter. No mass effect. Cerebral ventricles: No ventriculomegaly. Paranasal sinuses: Visualized sinuses are unremarkable. No fluid levels. Mastoid air cells: Visualized mastoid air cells are well aerated. Bones/joints: Unremarkable. No acute fracture. Soft tissues: Unremarkable. CT/CT head wo con* [id number] IMPRESSION: No acute intracranial abnormality.
--- NOTE | 2021-07-30 11:49 | XRR_ITS ---
PROCEDURE INFORMATION: Exam: XR Chest Exam date and time: 07/30/2021 11:49 AM Age: 61 years old Clinical indication: Shortness of breath; Additional info: Crackles TECHNIQUE: Imaging protocol: XR of the chest. Views: 1 view. COMPARISON: CR (CHEST, ) 07/15/2021 7:38 PM FINDINGS: Lungs: Unremarkable. No consolidation. Pleural spaces: Unremarkable. No pleural effusion. No pneumothorax. Heart/Mediastinum: Unremarkable. No cardiomegaly. Bones/joints: [place] of ACDF in the midcervical spine. Visualized osseous structures are intact. XR/XR chest 1V portable [id number] IMPRESSION: No acute findings.
--- NOTE | 2021-07-30 11:50 | ECG_ITS ---
Test Date: 2021-07-30 Pat Name: Anette Liang Department: Room: Gender: Female Finish Patcher: : 1960 Requested By: Nav Gamez Order Number: [id number] Frankie MD: Ruby Magana M.D. Measurements Intervals [place] Rate: 77 P: 36 [place]: 130 QRS: 21 QRSD: 99 T: 42 QT: 397 QTc: 451 Interpretive Statements SINUS RHYTHM NONSPECIFIC T-WAVE ABNORMALITY Compared to ECG 04/04/2019 14:56:40 No significant changes Electronically Signed On 07-31-2021 12:09:36 WAREHOUSE OPERATIONS MANAGER by Ruby Magana M.D. [id number]
[2021-07-30] MEDS: lactated ringers 1,000 ML 999 ML IV (12:03)
[2021-07-30 12:15] LABS: Basophils # 0.1 10^3/uL (0.0-0.1); Basophils % 0.7 %; Eosinophils # 0.2 10^3/uL (0.0-0.8); Hematocrit 41.7 % (37.0-47.0); Hemoglobin 13.3 g/dL (11.5-15.3); Lymphocytes # 2.9 10^3/uL (0.8-4.8); Lymphocytes % 35.2 %; Mean Corpuscular HGB Conc 31.9 g/dL (30.0-36.0); Mean Corpuscular Hemoglobin 29.8 pg (28.0-34.0); Mean Corpuscular Volume 93.5 fl (81-99); Mean Platelet Volume 11.2 fL (7.4-10.4); Monocytes # 0.7 10^3/uL (0.2-0.9); Monocytes % 8.1 %; Neutrophils # 4.26 10^3/uL (1.8-7.7); Neutrophils % 52.6 %; Nucleated Red Blood Cells % 0 %; Platelet Count 257 10^3/cmm (130-400); Red Blood Count 4.46 10^6/uL (4.1-5.3); Red Cell Distribution Width 15.7 % (12.1-15.1); White Blood Count 8.1 10^3/uL (4.0-10.0)
[2021-07-30 12:18] LABS: Ketone (Acetest) Serum Negative (Negative)
[2021-07-30 12:25] LABS: Add Urine Microscopic? YES; Bilirubin Urine Neg (Negative); Blood Urine 3+ (Negative); Glucose Urine UA Norm (Normal); Ketones Urine Negative (Negative); Leukocyte Esterase Urine Negative (Negative); Nitrate Urine Negative (Negative); Protein Urine 1+ (Negative); Urine Appearance Clear (CLEAR); Urine Color Yellow (Yellow); Urobilinogen Urine Norm (Negative); pH Urine 6 (5-7)
[2021-07-30 12:27] LABS: Add Urine Culture? No; Bacteria Urine 1+ /hpf; Squamous Epithelial Cell Urine 15-25 /hpf (0-5); WBC Urine 0-4 /hpf (0-5)
[2021-07-30 12:31] LABS: Troponin(5th) Baseline 6 ng/L (0-10)
[2021-07-30 12:36] VITALS: BP 139/109; PULSE 77; RESP 16; O2SAT 99
[2021-07-30 12:36] LABS: Alanine Aminotransferase 23 U/L (0-33); Albumin Level 4.2 g/dL (3.5-5.2); Alkaline Phosphatase 138 IU/L (35-105); Anion Gap 17.8 (5-19); Aspartate Amino Transferase 32 U/L (0-32); Blood Urea Nitrogen 8 mg/dL (8-23); Calcium 9.5 mg/dL (8.5-10.5); Carbon Dioxide 24 mmol/L (22-29); Chloride 103 mmol/L (98-107); Globulin 3.3 g/dL (1.3-4.6); Glucose 200 mg/dL (65-115); Osmolality Calculated 296 mOsm/kg (285-295); Potassium 3.8 mmol/L (3.5-5.1); Sodium 141 mmol/L (136-145); Thyroid Stimulating Hormone 2.43 uIU/mL (0.27-4.20); Total Bilirubin 0.2 mg/dL (0.15-1.2); Total Protein 7.5 g/dL (6.6-8.7)
--- NOTE | 2021-07-30 13:24 | CTR_ITS ---
PROCEDURE INFORMATION: Exam: CT Abdomen And Pelvis With Contrast Exam date and time: 07/30/2021 1:24 PM Age: 61 years old Clinical indication: Abdominal pain; Generalized; Prior surgery; Surgery date: 6+ months; Surgery type: Gb; Additional info: Abdominal pain, diarrhea TECHNIQUE: Imaging protocol: Computed tomography of the abdomen and pelvis with contrast. Radiation optimization: All CT scans at this facility use at least one of these dose optimization techniques: automated exposure control; mA and/or kV adjustment per patient size (includes targeted exams where dose is matched to clinical indication); or iterative reconstruction. Contrast material: OMNIPAQUE 300; Contrast volume: 90 ml; Contrast route: INTRAVENOUS (IV); COMPARISON: CT abdomen pelvis w con* [id number] 07/15/2021 8:42 PM RADIATION DOSE METRICS: Total DLP (mGy-cm): 1702.65 FINDINGS: Liver: Normal. No mass. Gallbladder and bile ducts: Cholecystectomy. No ductal dilation. Pancreas: Normal. No ductal dilation. Spleen: Normal. No splenomegaly. Adrenal glands: Normal. No mass. Kidneys and ureters: Normal. No hydronephrosis. Stomach and bowel: 3.2 cm lipoma noted in the wall of the ascending colon series 2, image 46. Submucosal fat deposition noted within the cecum, ascending colon, and proximal aspect of the transverse colon as well as the terminal ileum. No obstruction. No mucosal thickening. Appendix: No evidence of appendicitis. Intraperitoneal space: Unremarkable. No free air. No significant fluid collection. Vasculature: Unremarkable. No abdominal aortic aneurysm. Lymph nodes: Unremarkable. No enlarged lymph nodes. Urinary bladder: Unremarkable as visualized. Reproductive: Unremarkable as visualized. Bones/joints: No acute fracture. Soft tissues: Unremarkable. CT/CT abdomen pelvis w con* [id number] IMPRESSION: 1. No acute findings. 2. There is submucosal fat deposition within the terminal ileum, cecum, ascending colon, and proximal transverse colon. This is a nonspecific finding and could be incidental, however, this could also be indirect sign of recurrent inflammation. Correlate with clinical history.
--- NOTE | 2021-07-30 13:50 | ECG_ITS ---
[facility] Test Date: 2021-07-30 Pat Name: Anette Liang Department: Room: Gender: Female Import Manager: : 1960 Requested By: Nav Gamez Order Number: [id number] Frankie MD: Ruby Magana M.D. Measurements Intervals [place] Rate: 80 P: 48 IN: 140 QRS: 34 QRSD: 88 T: 53 QT: 398 QTc: 461 Interpretive Statements SINUS RHYTHM Compared to ECG 07/30/2021 11:57:30 T-wave abnormality no longer present Electronically Signed On 07-31-2021 12:19:49 ARCHIVAL STUDIES PROFESSOR by Ruby Magana M.D. [id number]
[2021-07-30] MEDS: iohexol 300 mg/mL 100 mL Btl IV (14:13)
[2021-07-30 14:19] LABS: Troponin 5 2HR 6.52 ng/L (0-10)
[2021-07-30 14:38] LABS: Troponin 5 2HR Delta 0.52 ABS# (0-10)
[2021-07-30 15:49] VITALS: BP 170/80; PULSE 78; RESP 18; O2SAT 95
[2021-07-30 19:32] LABS: Glucose Point of Care 205 mg/dL (70-110)
== END 2021-07-30 15:55 | disposition home or self-care (01) ==
PROVIDERS: Emergency Provider Emergency Medicine; PCP Electrodiagnostic Medicine
DX: R42 Dizziness and giddiness (principal); R10.9 Unspecified abdominal pain; Z79.84 Long term (current) use of oral hypoglycemic drugs; E11.40 Type 2 diabetes mellitus with diabetic neuropathy, unspecified; E78.5 Hyperlipidemia, unspecified; I10 Essential (primary) hypertension; F17.210 Nicotine dependence, cigarettes, uncomplicated
CPT/HCPCS: 36416; 70450; 71045; 74177; 80053; 81001; 82009; 82962; 84443; 84484; 85025; 93005; 96360; 99284; Q9967

== ENCOUNTER 2022-04-07 11:29 | Emergency (ER) | payer MEDICARE, SELFPAY ==
[2022-04-07 12:39] VITALS: BP 158/100; PULSE 78; RESP 16; TEMP 36.3; O2SAT 97; BMI 31.0
--- NOTE | 2022-04-07 12:44 | ECG_ITS ---
[facility] Test Date: 2022-04-07 Pat Name: Anette Liang Department: Room: Gender: Female Optoelectronic Technician: : 1960 Requested By: Ralf Brito Order Number: [id number] Frankie MD: Allison Carrillo M.D. Measurements Intervals [place] Rate: 74 P: 48 TN: 145 QRS: 29 QRSD: 99 T: 51 QT: 438 QTc: 487 Interpretive Statements SINUS RHYTHM NONSPECIFIC ST & T-WAVE ABNORMALITY Compared to ECG 07/30/2021 14:05:51 T-wave abnormality now present Electronically Signed On 04-08-2022 14:53:26 CHERRY CUTTER by Allison Carrillo M.D. [email or web address] [email or web address] [email or web address] [id number]
--- NOTE | 2022-04-07 13:42 | XRR_ITS ---
PROCEDURE INFORMATION: Exam: XR Chest Exam date and time: 04/07/2022 2:53 PM Age: 61 years old Clinical indication: Pain; Angina pectoris; Additional info: Cp TECHNIQUE: Imaging protocol: Radiologic exam of the chest. Views: 1 view. COMPARISON: CR XR chest 1V portable [id number] 07/30/2021 12:45 PM FINDINGS: Lungs: Unremarkable. No consolidation. Pleural spaces: Unremarkable. No pleural effusion. No pneumothorax. Heart/Mediastinum: Unremarkable. No cardiomegaly. Bones/joints: Metallic hardware is present in the cervical spine. 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 XR/XR chest 1V portable [id number] IMPRESSION: 1. No acute findings. 2. Metallic hardware cervical spine 3. Dorsal spine osteoarthritis
[2022-04-07 14:28] LABS: Basophils # 0.1 10^3/uL (0.0-0.1); Basophils % 0.6 %; Eosinophils # 0.2 10^3/uL (0.0-0.8); Eosinophils % 1.5 %; Hematocrit 39.7 % (37.0-47.0); Hemoglobin 12.6 g/dL (11.5-15.3); Lymphocytes # 3.2 10^3/uL (0.8-4.8); Lymphocytes % 30.9 %; Mean Corpuscular HGB Conc 31.7 g/dL (30.0-36.0); Mean Corpuscular Hemoglobin 26.8 pg (28.0-34.0); Mean Corpuscular Volume 84.3 fl (81-99); Mean Platelet Volume 11.9 fL (7.4-10.4); Monocytes # 0.6 10^3/uL (0.2-0.9); Monocytes % 5.6 %; Neutrophils % 61.1 %; Nucleated Red Blood Cells % 0 %; Platelet Count 211 10^3/cmm (130-400); Red Blood Count 4.71 10^6/uL (4.1-5.3); Red Cell Distribution Width 15.4 % (12.1-15.1); White Blood Count 10.5 10^3/uL (4.0-10.0)
[2022-04-07 14:43] LABS: Alanine Aminotransferase 17 U/L (0-33); Alkaline Phosphatase 118 U/L (35-105); Anion Gap 15.3 (5-19); Aspartate Amino Transferase 23 U/L (0-32); Blood Urea Nitrogen 15 mg/dL (8-23); Carbon Dioxide 27 mmol/L (22-29); Chloride 97 mmol/L (98-107); Globulin 2.8 g/dL (1.3-4.6); Glomerular Filtration Rate 84.5 mL/min (90-130); Glucose 240 mg/dL (65-115); Osmolality Calculated 291 mOsm/kg (285-295); Potassium 3.3 mmol/L (3.5-5.1); Sodium 136 mmol/L (136-145); Total Bilirubin 0.2 mg/dL (0.15-1.2); Total Protein 6.8 g/dL (6.6-8.7)
[2022-04-07 14:47] LABS: Troponin T (5th) Once 9 ng/L (0-10)
[2022-04-07 16:18] VITALS: BP 160/103; PULSE 69; RESP 16; TEMP 36; O2SAT 96
--- NOTE | 2022-04-08 14:41 | W.ED.GENADLT ---
HPI - General Adult General: Chief complaint: General Medical Stated complaint: high B/P History of Present Illness: Patient presented emergency room was triaged. I did not see the patient my name was attached to the chart but and never did see the patient. EKG was done initially Mining was placed on the under Dr. Fields ordered some labs with patient was in the waiting room. With patient left without being seen [facility] ED PFSH: Medical History Cervical disc disorder with myelopathy of mid-cervical region Diabetes mellitus Diabetic retinopathy Dyslipidemia Hypertension Intervertebral disc disorder with radiculopathy of lumbosacral region Lumbar disc disease Lumbar post-laminectomy syndrome Neuropathy Spondylolisthesis of cervical region Stenosis of cervical spine with myelopathy Surgical History History of cholecystectomy 1999 History of colonoscopy 2010 History of fusion of cervical spine (06/05/16) C5-C6, C6-C7 ACDFF History of lumbosacral spine surgery 2012 L5-S1 decompression Family History Grandmother Cancer Diabetes Heart disease Mother Osteoarthritis Social History Smoking and tobacco status: current every day smoker Alcohol intake: never Household members: children Marital status: / Current occupational status: disabled History of recent travel: No Course Vital Signs: Vital signs: Vital Signs Temperature 96.8 F L 04/07/22 16:18 Pulse Rate 69 04/07/22 16:18 Respiratory Rate 16 04/07/22 16:18 Blood Pressure 160/103 04/07/22 16:18 Pulse Oximetry 96 04/07/22 16:18 MDM - General Adult Medical Decision Making Patient left without being seen Lab Data : 04/07/22 13:13 04/07/22 13:13 Radiology Impressions Chest X-Ray 04/07/22 13:42 IMPRESSION: 1. No acute findings. 2. Metallic hardware cervical spine 3. Dorsal spine osteoarthritis Laboratory Results WBC 10.5 10^3/uL (4.0-10.0) H 04/07/22 13:13 RBC 4.71 10^6/uL (4.1-5.3) 04/07/22 13:13 Hgb 12.6 g/dL (11.5-15.3) 04/07/22 13:13 Hct 39.7 % (37.0-47.0) 04/07/22 13:13 MCV 84.3 fl (81-99) 04/07/22 13:13 MCH 26.8 pg (28.0-34.0) L 04/07/22 13:13 MCHC 31.7 g/dL (30.0-36.0) 04/07/22 13:13 RDW 15.4 % (12.1-15.1) H 04/07/22 13:13 Plt Count 211 10^3/cmm (130-400) 04/07/22 13:13 MPV 11.9 fL (7.4-10.4) H 04/07/22 13:13 Neut % (Auto) 61.1 % 04/07/22 13:13 Lymph % (Auto) 30.9 % 04/07/22 13:13 [place] % (Auto) 5.6 % 04/07/22 13:13 Eos % (Auto) 1.5 % 04/07/22 13:13 Baso % (Auto) 0.6 % 04/07/22 13:13 Neut # (Auto) 6.40 10^3/uL (1.8-7.7) 04/07/22 13:13 Lymph # (Auto) 3.2 10^3/uL (0.8-4.8) 04/07/22 13:13 [place] # (Auto) 0.6 10^3/uL (0.2-0.9) 04/07/22 13:13 Eos # (Auto) 0.2 10^3/uL (0.0-0.8) 04/07/22 13:13 Baso # (Auto) 0.1 10^3/uL (0.0-0.1) 04/07/22 13:13 Nucleated RBC % (auto) 0 % 04/07/22 13:13 Nucleated RBCs # 0.0 /100WBC 04/07/22 13:13 Sodium 136 mmol/L (136-145) 04/07/22 13:13 Potassium 3.3 mmol/L (3.5-5.1) L 04/07/22 13:13 Chloride 97 mmol/L (98-107) L 04/07/22 13:13 Carbon Dioxide 27 mmol/L (22-29) 04/07/22 13:13 Anion Gap 15.3 (5-19) 04/07/22 13:13 BUN 15 mg/dL (8-23) 04/07/22 13:13 Creatinine 0.7 mg/dL (0.5-0.9) 04/07/22 13:13 GFR Calculation 84.5 mL/min (90-130) L 04/07/22 13:13 Glucose 240 mg/dL (65-115) H 04/07/22 13:13 Calculated Osmolality 291 mOsm/kg (285-295) 04/07/22 13:13 Calcium 9.0 mg/dL (8.5-10.5) 04/07/22 13:13 Total Bilirubin 0.2 mg/dL (0.15-1.2) 04/07/22 13:13 AST 23 U/L (0-32) 04/07/22 13:13 ALT 17 U/L (0-33) 04/07/22 13:13 Alkaline Phosphatase 118 U/L (35-105) H 04/07/22 13:13 Troponin T Gen 5 ng/L 9 ng/L (0-10) 04/07/22 13:13 Total Protein 6.8 g/dL (6.6-8.7) 04/07/22 13:13 Albumin 4.0 g/dL (3.5-5.2) 04/07/22 13:13 Globulin 2.8 g/dL (1.3-4.6) 04/07/22 13:13 Discharge Plan Discharge Patient Disposition: Left Without Being Seen Coding Level of Care Code ED Conservation Coordinator for Teresa Ashby
== END 2022-04-07 17:45 | disposition left against medical advice (07) ==
PROVIDERS: Nurse Practitioner Family; Emergency Provider Family Medicine; PCP Electrodiagnostic Medicine
DX: Z53.21 Procedure and treatment not carried out due to patient leaving prior to being seen by health care provider (principal)
CPT/HCPCS: 36415; 71045; 80053; 84484; 85025; 93005

== ENCOUNTER 2022-12-12 07:31 | Emergency (ER) | payer MEDICARE, SELFPAY ==
[2022-12-12 07:41] VITALS: BP 245/136; PULSE 87; RESP 18; TEMP 36.7; O2SAT 98; BMI 30.1
--- NOTE | 2022-12-12 07:44 | ED_ITS ---
HPI - Abdominal Pain General: Chief Complaint: Abdominal Pain Stated Complaint: RIGHT SIDE UPPER ABD PAIN Time Seen by Provider: 12/12/22 07:32 Source: patient Mode of arrival: ambulatory History of Present Illness: 62-year-old female history of previous cholecystectomy presents to the emergency room with complaints of right upper quadrant pain this been going on for the last couple of weeks. She notices it exacerbated when she eats it does not really matter what she eats she states almost anything will seem to precipitate the pain. Is also associated with acholic stools shortly after she begins eating. She makes comment that sometimes while she is eating a meal she will be interrupted by an episode of diarrhea. She denies any fever sweats or chills no hematemesis or coffee-ground emesis no chest pain. Patient is diabetic she has no known history of coronary disease she does have a history of hypertension. She denies any associated flank pain dysuria urgency or frequency hematuria fever sweats or chills. MD elicited complaint: abdominal pain Onset (ago): week(s) Location: RUQ Severity: moderate Quality: cramping Exacerbating factors: eating Associated Symptoms: Reports GI cramping, diarrhea, nausea, poor appetite and other (Acholic stools); Denies anorexia, belching, bloating, change in bowel habits, change in stool character, chills, coffee ground emesis, constipation, dyspepsia, dysuria, excessive flatus, fever(s), heartburn, hematochezia, hematuria, hematemesis, fecal incontinence, loose stools, melena, syncope and vomiting Review of Systems Const: Denies: fever(s), chills, fatigue or malaise ENMT: Denies: throat pain, ear or mastoid pain, nasal discharge or nasal congestion Card: Denies: chest pain, palpitations, irregular heart rhythm or syncope Resp: Denies: dyspnea, productive cough or non-productive cough GI: Reports: abdominal pain, nausea, diarrhea, GI cramping and other (Acholic stools); Denies: vomiting, hematemesis, coffee ground emesis, heartburn, constipation, bloating, belching, excessive flatus, fecal incontinence, change in bowel habits, change in stool character, hematochezia or melena : Denies: flank pain, dysuria, urinary frequency, urinary urgency or hematuria Musc: Denies: neck pain or back pain Skin/Breast: Denies: rash or pruritus PFSH ED PFSH: Medical History Cervical disc disorder with myelopathy of mid-cervical region Diabetes mellitus Diabetic retinopathy Dyslipidemia Hypertension Intervertebral disc disorder with radiculopathy of lumbosacral region Lumbar disc disease Lumbar post-laminectomy syndrome Neuropathy Spondylolisthesis of cervical region Stenosis of cervical spine with myelopathy Surgical History History of cholecystectomy 1999 History of colonoscopy 2010 History of fusion of cervical spine (06/05/16) C5-C6, C6-C7 ACDFF History of lumbosacral spine surgery 2012 L5-S1 decompression Family History Grandmother Cancer Diabetes Heart disease Mother Osteoarthritis Social History Smoking and tobacco status: current every day smoker Alcohol intake: never Substance/Drug Use: never Household members: children Marital status: / Current occupational status: disabled Physical Exam 2 Const: GENERAL APPEARANCE: cooperative and comfortable ORIENTATION/CONSCIOUSNESS: Yes awake, Yes oriented to person, Yes oriented to place and Yes oriented to time HENMT: COMMON NORMALS: normocephalic, atraumatic and hearing grossly normal bilaterally HEAD & SCALP: normocephalic and atraumatic Resp: COMMON NORMALS: normal respiratory effort, No retractions, No use of accessory muscles and clear to auscultation bilaterally AUSCULTATION: clear to auscultation bilaterally Cardio: COMMON NORMALS: regular rate, regular rhythm and No murmurs present (Cardio) RATE: regular rate RHYTHM: regular rhythm GI: COMMON NORMALS: No hepatosplenomegaly present AUSCULTATION: Yes normoactive bowel sounds PALPATION: Yes Tenderness to palpation present (GI) Details: RUQ, No Guarding due to palpation present (GI) and Yes No hepatosplenomegaly present Extremity: COMMON NORMALS: normal to inspection, capillary refill normal, no clubbing, cyanosis or edema, no calf tenderness and no pedal edema Neuro: SENSORIUM/ORIENTATION: Yes oriented to person, Yes oriented to place and Yes oriented to time Skin: COMMON NORMALS: no rashes or lesions noted GENERAL SKIN EXAM: no rashes or lesions noted Course Vital Signs: Vital signs: Vital Signs Temperature 98.1 F 12/12/22 07:41 Pulse Rate 75 12/12/22 09:38 Respiratory Rate 17 12/12/22 09:38 Blood Pressure 183/86 12/12/22 09:38 Pulse Oximetry 98 12/12/22 09:38 Oxygen Delivery Me thod Room Air 12/12/22 09:38 MDM - Abdominal Pain Medical Decision Making The time the work-up was completed symptoms had resolved. She has a nonobstructing renal stone and opiate really plays a role otherwise Cassy I this before he does not have any significant hematuria on her UA. She not having any urinary tract symptoms. She does get these episodes associated with eating and there is also associated acholic diarrhea. 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 There is no dilation on her common bile ducts she does have a slight elevation on her alk phosphatase. The rest of her transaminases and T. bili are normal. Her symptoms have resolved. 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 Medical Records I reviewed the patient's medical records. Lab Data I reviewed the patient's lab results. 12/12/22 07:48 12/12/22 07:48 Labs/Radiology: Radiology Impressions Abdomen/Pelvis CT 12/12/22 07:49 IMPRESSION: 1. Punctate nonobstructive left nephrolith. 2. Chronic and incidental findings as above. Laboratory Results WBC 12.2 10^3/uL (4.0-10.0) H 12/12/22 07:48 RBC 5.04 10^6/uL (4.1-5.3) 12/12/22 07:48 Hgb 11.1 g/dL (11.5-15.3) L 12/12/22 07:48 Hct 36.9 % (37.0-47.0) L 12/12/22 07:48 MCV 73.2 fl (81-99) L 12/12/22 07:48 MCH 22.0 pg (28.0-34.0) L 12/12/22 07:48 MCHC 30.1 g/dL (30.0-36.0) 12/12/22 07:48 RDW 18.7 % (12.1-15.1) H 12/12/22 07:48 Plt Count 234 10^3/cmm (130-400) 12/12/22 07:48 MPV 10.8 fL (7.4-10.4) H 12/12/22 07:48 Neut % (Auto) 60.8 % 12/12/22 07:48 Lymph % (Auto) 30.3 % 12/12/22 07:48 [place] % (Auto) 6.5 % 12/12/22 07:48 Eos % (Auto) 1.6 % 12/12/22 07:48 Baso % (Auto) 0.4 % 12/12/22 07:48 Neut # (Auto) 7.41 10^3/uL (1.8-7.7) 12/12/22 07:48 Lymph # (Auto) 3.7 10^3/uL (0.8-4.8) 12/12/22 07:48 [place] # (Auto) 0.8 10^3/uL (0.2-0.9) 12/12/22 07:48 Eos # (Auto) 0.2 10^3/uL (0.0-0.8) 12/12/22 07:48 Baso # (Auto) 0.1 10^3/uL (0.0-0.1) 12/12/22 07:48 Nucleated RBC % (auto) 0 % 12/12/22 07:48 Nucleated RBCs # 0.0 /100WBC 12/12/22 07:48 Sodium 134 mmol/L (136-145) L 12/12/22 07:48 Potassium 3.3 mmol/L (3.5-5.1) L 12/12/22 07:48 Chloride 95 mmol/L (98-107) L 12/12/22 07:48 Carbon Dioxide 25 mmol/L (22-29) 12/12/22 07:48 Anion Gap 17.3 (5-19) 12/12/22 07:48 BUN 13 mg/dL (8-23) 12/12/22 07:48 Creatinine 0.9 mg/dL (0.5-0.9) 12/12/22 07:48 GFR Calculation 63.0 mL/min (90-130) L 12/12/22 07:48 Glucose 311 mg/dL (65-115) H 12/12/22 07:48 POC Glucose 286 mg/dL (70-110) H 12/12/22 08:51 Calculated Osmolality 290 mOsm/kg (285-295) 12/12/22 07:48 Calcium 9.3 mg/dL (8.5-10.5) 12/12/22 07:48 Total Bilirubin 0.2 mg/dL (0.15-1.2) 12/12/22 07:48 AST 28 U/L (0-32) 12/12/22 07:48 ALT 17 U/L (0-33) 12/12/22 07:48 Alkaline Phosphatase 132 U/L (35-105) H 12/12/22 07:48 Total Protein 7.8 g/dL (6.6-8.7) 12/12/22 07:48 Albumin 4.4 g/dL (3.5-5.2) 12/12/22 07:48 Globulin 3.4 g/dL (1.3-4.6) 12/12/22 07:48 Lipase 75 U/L (13-60) H 12/12/22 07:48 Urine Color Yellow (Yellow) 12/12/22 07:56 Urine Appearance Clear (CLEAR) 12/12/22 07:56 Urine pH 6 (5-7) 12/12/22 07:56 Ur Specific [place] 1.010 (1.005-1.030) 12/12/22 07:56 Urine Protein 1+ (Negative) H 12/12/22 07:56 Urine Glucose (UA) 4+ (Normal) H 12/12/22 07:56 Urine Ketones Negative (Negative) 12/12/22 07:56 Urine Blood 2+ (Negative) H 12/12/22 07:56 Urine Nitrate Negative (Negative) 12/12/22 07:56 Urine Bilirubin Neg (Negative) 12/12/22 07:56 Urine Urobilinogen Norm mg/dL (Negative) 12/12/22 07:56 Ur Leukocyte Esterase Negative (Negative) 12/12/22 07:56 Urine RBC 0-4 /hpf (0-2) H 12/12/22 07:56 Urine WBC 0-4 /hpf (0-5) H 12/12/22 07:56 Ur Squamous Epith Cells 10-15 /hpf (0-5) H 12/12/22 07:56 Amorphous Sediment Not Reportable 12/12/22 07:56 Urine Bacteria 1+ /hpf (NONE) H 12/12/22 07:56 Discharge Plan Discharge Patient Disposition: Home Clinical Impression: Biliary colic symptom, Acholic stool, HTN (hypertension) Condition: Stable Prescriptions: New lisinopril 20 mg tablet 20 mg PO DAILY Qty: 30 0RF No Action gabapentin 300 mg capsule 600 mg PO TID metoprolol succinate 25 mg tablet extended release 24 hr 25 mg PO QPM duloxetine [Cymbalta] 30 mg capsule,delayed release(DR/EC) 30 mg PO BEDTIME glimepiride 4 mg tablet 4 mg PO QPM omeprazole 40 mg capsule,delayed release(DR/EC) 40 mg PO DAILY@20 acetaminophen [Tylenol Extra Strength] 500 mg Tablet 1,500 mg PO DAILY PRN (Reason: Pain) simvastatin 40 mg tablet 40 mg PO QPM metformin 500 mg tablet extended release 24 hr 500 mg PO BID@06,20 baclofen 10 mg Tablet 10 mg PO BID ibuprofen 200 mg Capsule 800 mg PO Q6H PRN (Reason: Pain) Discharge Orders: Discharge ED (Routine); Ordered 12/12/22 Ordered By: Ralf Granados Referrals: Italo Colindres DO [Primary Care Provider] - Discharge Diet: As Directed Discharge Activity: Increase activity as tolerated Patient Instructions: Abdominal Pain (ED), Opioid Safety, Pain Management Activity Restrictions/Additional Instructions: You were seen today for right upper quadrant pain that is suggestive of biliary colic. Typically this is associated with a bad gallbladder and some patients who is previously had their gallbladder removed they can have biliary colic like symptoms associated with a problem called the sphincter of Oddi disease. You may need further evaluation by gastroenterology. Your laboratory studies today showed a very slight elevation in lipase and alk phosphatase but your bilirubin and transaminases (liver enzymes) were otherwise normal. Recommend increasing your omeprazole to 40 mg twice daily. Your blood pressure was also noted to be elevated recommend you add lisinopril 20 mg daily. Follow-up with your primary care doctor within the week to reevaluate blood pressure and discuss possible re ferrals to further evaluate your abdominal discomfort. Would also recommend you hold metformin until you are seen by your doctor. Coding Level of Care Code ED [facility]opaedic [facility] for Teresa Ashby
--- NOTE | 2022-12-12 07:49 | CTR_ITS ---
PROCEDURE INFORMATION: Exam: CT Abdomen And Pelvis Without Contrast Exam date and time: 12/12/2022 8:14 AM Age: 62 years old Clinical indication: Abdominal pain; Localized; Right; Prior surgery; Surgery date: 6+ months; Surgery type: Gb, lumbar TECHNIQUE: Imaging protocol: Computed tomography of the abdomen and pelvis without contrast. Radiation optimization: All CT scans at this facility use at least one of these dose optimization techniques: automated exposure control; mA and/or kV adjustment per patient size (includes targeted exams where dose is matched to clinical indication); or iterative reconstruction. REPORTING DATA: Count of CT and Cardiac NM exams in prior 12 months: This patient has received 0 known CTs and 0 known cardiac nuclear medicine studies in the 12 months prior to the current study. COMPARISON: 1. CT abdomen pelvis w con* [id number] 07/30/2021 2:[address] abdomen pelvis w con* [id number] 07/15/2021 8:[address] abdomen pelvis w con* [id number] 07/27/2018 11:36 PM RADIATION DOSE METRICS: Total DLP (mGy-cm): 870.32 FINDINGS: Liver: Normal without focal lesions. Gallbladder and bile ducts: Prior cholecystectomy without biliary ductal dilatation. Pancreas: Normal without ductal dilatation. Spleen: Normal. Adrenal glands: Normal. No mass. Kidneys and ureters: Punctate calcification at the left lower kidney. No hydronephrosis. Normal ureters. Stomach and bowel: No dilatation. No mucosal thickening. Mild submucosal fatty deposition of the terminal ileum. Stable ascending colon lipoma. Appendix: Normal. Intraperitoneal space: No free air, free fluid, or well-organized fluid collection. Vasculature: Mild systemic atherosclerotic calcification without aortic aneurysm. Lymph nodes: No enlarged lymph nodes. Urinary bladder: Urinary bladder is unremarkable. Reproductive: Unremarkable as visualized. Bones/joints: No acute fracture. Transitional lumbosacral anatomy. Degenerative changes along the spine and hips. Soft tissues: Unremarkable. CT/CT abdomen pelvis con [id number] IMPRESSION: 1. Punctate nonobstructive left nephrolith. 2. Chronic and incidental findings as above.
[2022-12-12 07:51] VITALS: BP 232/125
[2022-12-12 08:00] LABS: Basophils # 0.1 10^3/uL (0.0-0.1); Basophils % 0.4 %; Eosinophils # 0.2 10^3/uL (0.0-0.8); Eosinophils % 1.6 %; Hematocrit 36.9 % (37.0-47.0); Hemoglobin 11.1 g/dL (11.5-15.3); Lymphocytes # 3.7 10^3/uL (0.8-4.8); Lymphocytes % 30.3 %; Mean Corpuscular HGB Conc 30.1 g/dL (30.0-36.0); Mean Corpuscular Volume 73.2 fl (81-99); Mean Platelet Volume 10.8 fL (7.4-10.4); Monocytes # 0.8 10^3/uL (0.2-0.9); Monocytes % 6.5 %; Neutrophils # 7.41 10^3/uL (1.8-7.7); Neutrophils % 60.8 %; Nucleated Red Blood Cells % 0 %; Platelet Count 234 10^3/cmm (130-400); Red Blood Count 5.04 10^6/uL (4.1-5.3); Red Cell Distribution Width 18.7 % (12.1-15.1); White Blood Count 12.2 10^3/uL (4.0-10.0)
--- NOTE | 2022-12-12 08:00 | ECG_ITS ---
[facility] Test Date: 2022-12-12 Pat Name: Anette Liang Department: Room: Gender: Female Associate Store Director: : 1960 Requested By: Ralf Brito Order Number: [id number] Frankie MD: Ruby Magana M.D. Measurements Intervals [place] Rate: 80 P: 50 ND: 125 QRS: 24 QRSD: 98 T: 42 QT: 420 QTc: 485 Interpretive Statements SINUS RHYTHM Compared to ECG 04/07/2022 12:49:46 T-wave abnormality no longer present Electronically Signed On 12-12-2022 20:13:21 CDT by Ruby Magana M.D. [email or web address] centerGoalSpring [employer]/store/[id number]
[2022-12-12] MEDS: labetalol 5 mg/mL SDV 20mL 10 MG IVP (08:08)
[2022-12-12] MEDS: hyDRALAzine 20 mg/mL INJ 1 mL IVP (08:08)
[2022-12-12] MEDS: amlodipine 10 mg Tablet PO (08:08)
[2022-12-12 08:14] LABS: Add Urine Microscopic? YES; Bilirubin Urine Neg (Negative); Blood Urine 2+ (Negative); Glucose Urine UA 4+ (Normal); Ketones Urine Negative (Negative); Leukocyte Esterase Urine Negative (Negative); Nitrate Urine Negative (Negative); Protein Urine 1+ (Negative); Urine Appearance Clear (CLEAR); Urine Color Yellow (Yellow); Urobilinogen Urine Norm (Negative); pH Urine 6 (5-7)
[2022-12-12 08:24] LABS: Bacteria Urine 1+ /hpf; RBC Urine 0-4 /hpf (0-2); WBC Urine 0-4 /hpf (0-5)
[2022-12-12 08:30] LABS: Alanine Aminotransferase 17 U/L (0-33); Albumin Level 4.4 g/dL (3.5-5.2); Alkaline Phosphatase 132 U/L (35-105); Anion Gap 17.3 (5-19); Aspartate Amino Transferase 28 U/L (0-32); Blood Urea Nitrogen 13 mg/dL (8-23); Calcium 9.3 mg/dL (8.5-10.5); Carbon Dioxide 25 mmol/L (22-29); Chloride 95 mmol/L (98-107); Globulin 3.4 g/dL (1.3-4.6); Glucose 311 mg/dL (65-115); Lipase 75 U/L (13-60); Osmolality Calculated 290 mOsm/kg (285-295); Potassium 3.3 mmol/L (3.5-5.1); Sodium 134 mmol/L (136-145); Total Bilirubin 0.2 mg/dL (0.15-1.2); Total Protein 7.8 g/dL (6.6-8.7)
[2022-12-12 08:54] LABS: Glucose Point of Care 286 mg/dL (70-110)
[2022-12-12 09:24] VITALS: BP 186/86
[2022-12-12 09:38] VITALS: BP 183/86; PULSE 75; RESP 17; O2SAT 98
== END 2022-12-12 10:19 | disposition home or self-care (01) ==
PROVIDERS: Emergency Provider Family Medicine; PCP Electrodiagnostic Medicine
DX: K80.50 Calculus of bile duct without cholangitis or cholecystitis without obstruction (principal); I10 Essential (primary) hypertension; Z79.84 Long term (current) use of oral hypoglycemic drugs; N20.0 Calculus of kidney; F17.210 Nicotine dependence, cigarettes, uncomplicated; E11.9 Type 2 diabetes mellitus without complications; E78.5 Hyperlipidemia, unspecified; R19.5 Other fecal abnormalities
CPT/HCPCS: 36416; 74176; 80053; 81001; 82962; 83690; 85025; 93005; 96374; 96375; 99285; J0360; J3490

== ENCOUNTER 2023-03-29 07:47 | Outpatient (CLI) | payer MEDICARE, SELFPAY ==
--- NOTE | 2023-03-29 08:06 | CTR_ITS ---
PROCEDURE INFORMATION: Exam: CT Chest With Contrast; Diagnostic Exam date and time: 03/29/2023 8:28 AM Age: 62 years old Clinical indication: Mass, lump, or swelling in the chest; Prior surgery; Surgery date: 6+ months; Surgery type: Gb; Patient HX: Painful mass anterior RT low ribs x 1 month, HX of cervical cancer; Additional info: Localized swelling, mass, and lump TECHNIQUE: Imaging protocol: Diagnostic computed tomography of the chest with contrast. Radiation optimization: All CT scans at this facility use at least one of these dose optimization techniques: automated exposure control; mA and/or kV adjustment per patient size (includes targeted exams where dose is matched to clinical indication); or iterative reconstruction. Contrast material: OMNI 350; Contrast volume: 100 ml; Contrast route: INTRAVENOUS (IV); REPORTING DATA: Count of CT and Cardiac NM exams in prior 12 months: This patient has received [address] and 0 known cardiac nuclear medicine studies in the 12 months prior to the current study. COMPARISON: CR XR chest 1V portable [id number] 04/07/2022 2:53 PM RADIATION DOSE METRICS: Total DLP (mGy-cm): 518.81 FINDINGS: Lungs: Minimal atelectasis. The lungs are otherwise clear. Pleural spaces: Unremarkable. No pneumothorax. No pleural effusion. Heart: Unremarkable. No cardiomegaly. No pericardial effusion. Lymph nodes: Unremarkable. No enlarged lymph nodes. Vasculature: Unremarkable. No aortic aneurysm. Gallbladder and bile ducts: Cholecystectomy. Bones/joints: Unremarkable. No acute fracture. Soft tissues: Unremarkable. CT/CT chest w con* [id number] IMPRESSION: No acute findings.
[2023-03-29] MEDS: iohexol 350 mg/mL 500 mL Btl (per mL) IV (08:11)
== END 2023-03-29 07:48 | disposition home or self-care (01) ==
LOC: RAD 07:47
PROVIDERS: PCP Electrodiagnostic Medicine; Visit Provider Electrodiagnostic Medicine
DX: R22.2 Localized swelling, mass and lump, trunk (principal); Z85.41 Personal history of malignant neoplasm of cervix uteri
CPT/HCPCS: 71260; Q9967

== ENCOUNTER 2023-09-23 05:23 | Emergency (ER) | payer MEDICARE, SELFPAY ==
[2023-09-23 05:34] VITALS: BP 173/92; PULSE 73; RESP 18; O2SAT 96
[2023-09-23] MEDS: sodium chloride 0.9% 1,000 ML 999 ML IV (05:49)
[2023-09-23 05:51] LABS: Basophils # 0.1 10^3/uL (0.0-0.1); Basophils % 0.6 %; Eosinophils # 0.2 10^3/uL (0.0-0.8); Eosinophils % 2.1 %; Hematocrit 30.3 % (36-47); Lymphocytes # 2.5 10^3/uL (0.8-4.8); Lymphocytes % 24.3 %; Mean Corpuscular HGB Conc 27.7 g/dL (30-55); Mean Corpuscular Hemoglobin 19.2 pg (27-33); Mean Corpuscular Volume 69.3 fl (85-98); Mean Platelet Volume 11.3 fL (7.4-10.4); Monocytes # 0.7 10^3/uL (0.2-0.9); Neutrophils # 6.87 10^3/uL (1.8-7.7); Neutrophils % 65.6 %; Nucleated Red Blood Cells % 0 %; Platelet Count 212 10^3/cmm (157-399); Red Blood Count 4.37 10^6/uL (3.85-5.65); White Blood Count 10.46 10^3/uL (3.29-11.43)
[2023-09-23 06:04] VITALS: PULSE 73; RESP 16; O2SAT 100
[2023-09-23 06:08] LABS: Alanine Aminotransferase 12 U/L (0-33); Albumin Level 3.7 g/dL (3.5-5.2); Alkaline Phosphatase 139 U/L (35-105); Anion Gap 16.5 (5-19); Aspartate Amino Transferase 20 U/L (0-32); Blood Urea Nitrogen 16 mg/dL (8-23); Calcium 8.8 mg/dL (8.5-10.5); Carbon Dioxide 23 mmol/L (22-29); Chloride 97 mmol/L (98-107); Creatinine Clr Calc Pharmacy 82.5952; Globulin 3.4 g/dL (1.3-4.6); Glucose 294 mg/dL (65-115); Lipase 112 U/L (13-60); Magnesium 1.8 mg/dL (1.7-2.3); Osmolality Calculated 288 mOsm/kg (285-295); Potassium 3.5 mmol/L (3.5-5.1); Sodium 133 mmol/L (136-145); Total Bilirubin 0.4 mg/dL (0.15-1.2); Total Protein 7.1 g/dL (6.6-8.7)
[2023-09-23 06:15] VITALS: BP 239/108
--- NOTE | 2023-09-23 06:17 | CTR_ITS ---
PROCEDURE INFORMATION: Exam: CT Abdomen And Pelvis With Contrast Exam date and time: 09/23/2023 6:28 AM Age: 63 years old Clinical indication: Nausea and vomiting and other: Diarrhea weight loss; Prior surgery; Surgery date: 6+ months; Surgery type: Gb; Patient HX: C/O n/v/d with thirty pound weight loss over last three weeks. ; Additional info: Abd pain TECHNIQUE: Imaging protocol: Computed tomography of the abdomen and pelvis with contrast. Radiation optimization: All CT scans at this facility use at least one of these dose optimization techniques: automated exposure control; mA and/or kV adjustment per patient size (includes targeted exams where dose is matched to clinical indication); or iterative reconstruction. Contrast material: OMNI 350; Contrast volume: 100 ml; Contrast route: INTRAVENOUS (IV); COMPARISON: CT abdomen pelvis wo con [id number] 12/12/2022 8:14 AM RADIATION DOSE METRICS: Total DLP (mGy-cm): 869.86 FINDINGS: Liver: Normal. No mass. Gallbladder and bile ducts: Cholecystectomy. Pancreas: Normal. No ductal dilation. Spleen: 11 cm splenomegaly. Adrenal glands: Normal. No mass. Kidneys and ureters: Normal. No hydronephrosis. Stomach and bowel: Unremarkable. No obstruction. No mucosal thickening. Appendix: No evidence of appendicitis. Intraperitoneal space: Unremarkable. No free air. No significant fluid collection. Vasculature: Unremarkable. No abdominal aortic aneurysm. Lymph nodes: Unremarkable. No enlarged lymph nodes. Urinary bladder: Unremarkable as visualized. Reproductive: Unremarkable as visualized. Bones/joints: Unremarkable. No acute fracture. Soft tissues: Unremarkable. CT/CT abdomen pelvis w con* [id number] IMPRESSION: No acute findings.
[2023-09-23] MEDS: hyDRALAzine 20 mg/mL INJ 1 mL 10 MG IVP (06:22)
[2023-09-23] MEDS: iohexol 350 mg/mL 500 mL Btl (per mL) IV (06:30)
--- NOTE | 2023-09-23 06:39 | ED_ITS ---
HPI - Abdominal Pain 2 General: Chief Complaint: Abdominal Pain Stated Complaint: N/V/D lost 30lb in 3 weeks Time Seen by Provider: 09/23/23 05:38 Source: patient Mode of arrival: ambulatory Limitations: no limitations History of Present Illness: 63-year-old female who states she is act ually been having abdominal issues since December he states she was told she had had fatty liver should was on 1 Giorno which she quit months ago. She states that over the last months she has had increasing abdominal pain that is been diffuse states she is also been having diarrhea it has been ongoing and weight loss rates her pain a 5 out of 10 currently denies any radiation denies any fevers. Associated Symptoms: Reports diarrhea; Denies chills, dysuria, fever(s), nausea and vomiting Review of Systems 2 Const: Denies: fever(s), chills, body aches or change in appetite ENMT: Denies: throat pain or dental pain Card: Denies: chest pain Resp: Denies: dyspnea GI: Reports: abdominal pain and diarrhea; Denies: nausea or vomiting : Denies: dysuria Musc: Denies: neck pain or back pain Skin/Breast: Denies: rash Neuro: Denies: headache(s) PFSH ED 2 PFSH: Medical History Diabetic retinopathy Neuropathy Dyslipidemia Hypertension Diabetes mellitus Lumbar disc disease Spondylolisthesis of cervical region Stenosis of cervical spine with myelopathy Cervical disc disorder with myelopathy of mid-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 Lumbar post-laminectomy syndrome Surgical History History of cholecystectomy 1999 History of colonoscopy 2010 History of fusion of cervical spine (06/05/16) C5-C6, C6-C7 ACDFF History of lumbosacral spine surgery 2013 L5-S1 decompression Family History Grandmother Cancer Diabetes Heart disease Mother Osteoarthritis Social History Smoking and tobacco/nicotine status: current every day tobacco/nicotine user Alcohol intake: never Substance/Drug Use: never Household members: children Marital status: / Current occupational status: disabled Physical Exam 2 Const: COMMON NORMALS: no acute distress, patient oriented x3 and healthy appearing HENMT: COMMON NORMALS: normocephalic and atraumatic HEAD & SCALP: n ormocephalic and atraumatic Eye: COMMON NORMALS: conjunctivae normal CONJUNCTIVA: Yes conjunctivae normal Neck/C-Spine: COMMON NORMALS: full ROM and supple Chest: COMMONS NORMALS: normal inspection of the chest Resp: COMMON NORMALS: normal respiratory effort, No retractions, No use of accessory muscles and clear to auscultation bilaterally AUSCULTATION: clear to auscultation bilaterally Cardio: COMMON NORMALS: regular rate, regular rhythm and No murmurs present (Cardio) RATE: regular rate RHYTHM: regular rhythm GI: COMMON NORMALS: Normal to inspection, nondistended, normoactive bowel sounds present, Soft to palpation, non-tender and no masses PALPATION: Yes Soft to palpation Extremity: COMMON NORMALS: normal to inspection and full ROM Neuro: COMMON NORMALS: patient oriented x3, moves all extremities and no focal motor deficits Psych: COMMON NORMALS: mental status grossly normal, Normal thought process present and cooperative THOUGHT PROCESS: Normal thought process present Skin: COMMON NORMALS: no rashes or lesions noted and no wounds GENERAL SKIN EXAM: no rashes or lesions noted Course 2 Vital Signs: Vital signs: Vital Signs Pulse Rate 81 09/23/23 07:25 Respiratory Rate 18 09/23/23 07:25 Blood Pressure 208/99 09/23/23 07:14 Pulse Oximetry 99 09/23/23 07:25 Oxygen Delivery Me thod Room Air 09/23/23 07:14 MDM - Abdominal Pain Medical Decision Making Patient presents here with abdominal pain diarrhea it has been chronic in nature lab work here showed no acute abnormality CT scan was normal. Exam here is benign we will place her on dicyclomine along with nausea medicine she is follow-up with PCP return if worsening she understands agrees to plan Medical Records I reviewed the patient's medical records. Lab Data I reviewed the patient's lab results. 09/23/23 05:46 09/23/23 05:46 Labs/Radiology: Radiology Impressions Abdomen/Pelvis CT 09/23/23 06:17 IMPRESSION: No acute findings. Laboratory Results WBC 10.46 10^3/uL (3.29-11.43) 09/23/23 05:46 RBC 4.37 10^6/uL (3.85-5.65) 09/23/23 05:46 Hgb 8.40 g/dL (11.27-16.99) L 09/23/23 05:46 Hct 30.3 % (36-47) L 09/23/23 05:46 MCV 69.3 fl (85-98) L 09/23/23 05:46 MCH 19.2 pg (27-33) L 09/23/23 05:46 MCHC 27.7 g/dL (30-55) L 09/23/23 05:46 RDW 19.0 % (12.1-15.1) H 09/23/23 05:46 Plt Count 212 10^3/cmm (157-399) 09/23/23 05:46 MPV 11.3 fL (7.4-10.4) H 09/23/23 05:46 Neut % (Auto) 65.6 % 09/23/23 05:46 Lymph % (Auto) 24.3 % 09/23/23 05:46 [place] % (Auto) 7.0 % 09/23/23 05:46 Eos % (Auto) 2.1 % 09/23/23 05:46 Baso % (Auto) 0.6 % 09/23/23 05:46 Neut # (Auto) 6.87 10^3/uL (1.8-7.7) 09/23/23 05:46 Lymph # (Auto) 2.5 10^3/uL (0.8-4.8) 09/23/23 05:46 [place] # (Auto) 0.7 10^3/uL (0.2-0.9) 09/23/23 05:46 Eos # (Auto) 0.2 10^3/uL (0.0-0.8) 09/23/23 05:46 Baso # (Auto) 0.1 10^3/uL (0.0-0.1) 09/23/23 05:46 Nucleated RBC % (auto) 0 % 09/23/23 05:46 Nucleated RBCs # 0.0 /100WBC 09/23/23 05:46 Sodium 133 mmol/L (136-145) L 09/23/23 05:46 Potassium 3.5 mmol/L (3.5-5.1) 09/23/23 05:46 Chloride 97 mmol/L (98-107) L 09/23/23 05:46 Carbon Dioxide 23 mmol/L (22-29) 09/23/23 05:46 Anion Gap 16.5 (5-19) 09/23/23 05:46 BUN 16 mg/dL (8-23) 09/23/23 05:46 Creatinine 0.8 mg/dL (0.5-0.9) 09/23/23 05:46 GFR Calculation 72.0 mL/min (90-130) L 09/23/23 05:46 Glucose 294 mg/dL (65-115) H 09/23/23 05:46 Calculated Osmolality 288 mOsm/kg (285-295) 09/23/23 05:46 Calcium 8.8 mg/dL (8.5-10.5) 09/23/23 05:46 Magnesium 1.8 mg/dL (1.7-2.3) 09/23/23 05:46 Total Bilirubin 0.4 mg/dL (0.15-1.2) 09/23/23 05:46 AST 20 U/L (0-32) 09/23/23 05:46 ALT 12 U/L (0-33) 09/23/23 05:46 Alkaline Phosphatase 139 U/L (35-105) H 09/23/23 05:46 C-Reactive Protein 3.0 mg/L (0.0-4.9) 09/23/23 05:46 Total Protein 7.1 g/dL (6.6-8.7) 09/23/23 05:46 Albumin 3.7 g/dL (3.5-5.2) 09/23/23 05:46 Globulin 3.4 g/dL (1.3-4.6) 09/23/23 05:46 Lipase 112 U/L (13-60) H 09/23/23 05:46 Urine Color Yellow (Yellow) 09/23/23 06:28 Urine Appearance Clear (CLEAR) 09/23/23 06:28 Urine pH 6 (5-7) 09/23/23 06:28 Ur Specific [place] 1.015 (1.005-1.030) 09/23/23 06:28 Urine Protein 1+ (Negative) H 09/23/23 06:28 Urine Glucose (UA) 4+ (Normal) H 09/23/23 06:28 Urine Ketones Negative (Negative) 09/23/23 06:28 Urine Blood 3+ (Negative) H 09/23/23 06:28 Urine Nitrate Negative (Negative) 09/23/23 06:28 Urine Bilirubin Neg (Negative) 09/23/23 06:28 Urine Urobilinogen Norm mg/dL (Negative) 09/23/23 06:28 Ur Leukocyte Esterase Negative (Negative) 09/23/23 06:28 Urine RBC 5-10 /hpf (0-2) H 09/23/23 06:28 Urine WBC 0-4 /hpf (0-5) H 09/23/23 06:28 Ur Squamous Epith Cells 0-4 /hpf (0-5) H 09/23/23 06:28 Amorphous Sediment Not Reportable 09/23/23 06:28 Urine Bacteria Trace /hpf (NONE) 09/23/23 06:28 All radiology interpretation(s) finalized by discharge Discharge Plan Discharge Patient Disposition: Home Clinical Impression: Diarrhea Abdominal pain Qualifiers: Abdominal location: generalized Qualified Code(s): R10.84 - Generalized abdominal pain Condition: Stable Prescriptions: New ondansetron 4 mg tablet,disintegrating 4 mg PO Q6H PRN (Reason: nausea and vomiting) Qty: 14 0RF dicyclomine 20 mg tablet 20 mg PO TID PRN (Reason: abdominal pain) Qty: 20 0RF No Action gabapentin 300 mg capsule 600 mg PO TID metoprolol succinate 25 mg tablet extended release 24 hr 25 mg PO QPM duloxetine [Cymbalta] 30 mg capsule,delayed release(DR/EC) 30 mg PO BEDTIME glimepiride 4 mg tablet 4 mg PO QPM minocycline 100 mg capsule 100 mg PO BID 7 Days Qty: 14 0RF prednisone 20 mg tablet 20 mg PO DAILY 3 Days Qty: 3 0RF omeprazole 40 mg capsule,delayed release(DR/EC) 40 mg PO DAILY@20 acetaminophen [Tylenol Extra Strength] 500 mg Tablet 1,500 mg PO DAILY PRN (Reason: Pain) simvastatin 40 mg tablet 40 mg PO QPM metformin 500 mg tablet extended release 24 hr 500 mg PO BID@06,20 baclofen 10 mg Tablet 10 mg PO BID ibuprofen 200 mg Capsule 800 mg PO Q6H PRN (Reason: Pain) lisinopril 20 mg tablet 20 mg PO DAILY Qty: 30 0RF Discharge Orders: Discharge ED (Routine); Ordered 09/23/23 Ordered By: Arie Be Referrals: Italo Colindres DO [Primary Care Provider] - 1-3 days Discharge Diet: Advance as tolerated Discharge Activity: Resume usual activity Patient Instructions: Diarrhea - Adult, Abdominal Pain (ED) Coding Level of Care Code ED Layer Out Plate Glass for Teresa Ashby
[2023-09-23 06:51] VITALS: BP 204/77; PULSE 80; RESP 18; O2SAT 99
[2023-09-23 06:55] LABS: Bilirubin Urine Neg (Negative); Blood Urine 3+ (Negative); Glucose Urine UA 4+ (Normal); Ketones Urine Negative (Negative); Leukocyte Esterase Urine Negative (Negative); Nitrate Urine Negative (Negative); Protein Urine 1+ (Negative); Specific Gravity, Urine 1.015 (1.005-1.030); Urine Appearance Clear (CLEAR); Urine Color Yellow (Yellow); Urobilinogen Urine Norm (Negative); pH Urine 6 (5-7)
[2023-09-23 06:56] LABS: Add Urine Culture? No; Add Urine Microscopic? YES; Bacteria Urine TRACE /hpf; Squamous Epithelial Cell Urine 0-4 /hpf (0-5); WBC Urine 0-4 /hpf (0-5)
[2023-09-23] MEDS: ondansetron 2 mg/ML SDV 2 mL 4 MG IVP (07:10)
[2023-09-23] MEDS: diphenoxylate/atropine Tablet 1 TAB PO (07:11)
[2023-09-23] MEDS: HYDROmorphone 1 mg/mL INJ 1 mL 0.5 MG IVP (07:11)
[2023-09-23 07:14] VITALS: BP 208/99; PULSE 81; RESP 18; O2SAT 99
[2023-09-23 07:25] VITALS: PULSE 81; RESP 18; O2SAT 99
== END 2023-09-23 07:26 | disposition home or self-care (01) ==
PROVIDERS: Emergency Medicine; Emergency Provider Emergency Medicine; PCP Electrodiagnostic Medicine
DX: R19.7 Diarrhea, unspecified (principal); R10.84 Generalized abdominal pain; Z79.84 Long term (current) use of oral hypoglycemic drugs; E11.42 Type 2 diabetes mellitus with diabetic polyneuropathy; E78.5 Hyperlipidemia, unspecified; I10 Essential (primary) hypertension; Z72.0 Tobacco use
CPT/HCPCS: 74177; 80053; 81001; 83690; 83735; 85025; 86140; 96374; 96375; 99285; J0360; J1170; J2405; J7030; Q9967

== ENCOUNTER 2023-11-29 10:27 | Emergency (ER) | payer MEDICARE, SELFPAY ==
--- NOTE | 2023-11-29 10:34 | XRR_ITS ---
PROCEDURE INFORMATION: Exam: XR Left Hip Exam date and time: 11/29/2023 10:49 AM Age: 63 years old Clinical indication: Injury or trauma; Fall; Blunt trauma (contusions or hematomas); Left; Hip; Injury date: 11/28/23 TECHNIQUE: Imaging protocol: Radiologic exam of the left hip. Views: 2 or 3 views hip with pelvis when performed. COMPARISON: CT abdomen pelvis w con* [id number] 09/23/2023 6:28 AM FINDINGS: Bones/joints: Moderate articular surface narrowing and spurring. No fracture or dislocation. No acute osseous or joint abnormality. . No acute fracture. Soft tissues: Unremarkable. XR/XR hip LT 2-3V wo/w pel* [id number] IMPRESSION: No acute findings.
--- NOTE | 2023-11-29 10:34 | XRR_ITS ---
PROCEDURE INFORMATION: Exam: XR Right Ankle Exam date and time: 11/29/2023 11:18 AM Age: 63 years old Clinical indication: Pain; Ankle; Right; Additional info: Trauma, fell on RT side, swelling an dbruising. TECHNIQUE: Imaging protocol: Radiologic exam of the right ankle. Views: 3 or more views. COMPARISON: No relevant prior studies available. FINDINGS: Bones/joints: Vague calcification is seen along the distal margin of the fibula seen only on the oblique view. I cannot exclude small avulsions. There is associated soft tissue swelling. Soft tissues: See Bones/joints finding. XR/XR ankle RT min 3V* [id number] IMPRESSION: Possible small avulsions off of the distal fibula.
[2023-11-29 10:35] VITALS: BP 229/81; PULSE 72; RESP 18; TEMP 36.7; O2SAT 95; BMI 30.4
--- NOTE | 2023-11-29 10:35 | XRR_ITS ---
PROCEDURE INFORMATION: Exam: XR Lumbosacral Spine Exam date and time: 11/29/2023 10:49 AM Age: 63 years old Clinical indication: Injury or trauma; Fall; Blunt trauma (contusions or hematomas); Injury date: 11/28/23; Prior surgery; Surgery date: 6+ months; Surgery type: Gallbladder TECHNIQUE: Imaging protocol: Radiologic exam of the lumbosacral spine. Views: 2 or 3 views. COMPARISON: CR XR lumbar spine min 4V [id number] 07/05/2021 2:47 PM FINDINGS: Bones/joints: Mild multilevel disc space narrowing and spurring. The pedicles are intact. There is no evidence of fracture or acute bone destruction. Soft tissues: The perivertebral soft tissues are normal. Organs: Cholecystectomy. XR/XR lumbar spine 2-3V* [id number] IMPRESSION: Degenerative changes.
[2023-11-29 10:44] VITALS: O2SAT 96
--- NOTE | 2023-11-29 10:52 | W.ED.FALL ---
HPI - Fall General: Chief Complaint: Fall Stated Complaint: fall, left hip lower back and ankle pain Time Seen by Provider: 11/29/23 10:34 Source: patient Mode of arrival: ambulatory History of Present Illness: 63-year-old female who was going down the stairs missed a step and fell she is complaining of right ankle pain low back pain left hip pain she did not strike her head did not lose consciousness denies any other injury. MD complaint: fall Onset (ago): minute(s) Fall from: down stairs (#) (1) Place fall occurred: home Loss of consciousness: None Prolonged down time: no Symptoms prior to fall: none Context: tripped/slipped Associated symptoms-after fall: Denies abdominal pain, chest pain, confusion, difficulty walking, headache(s), hematuria, lightheadedness, neck pain, numbness, short of breath, vertigo or weakness Review of Systems Const: Denies: fever(s) or chills Card: Denies: chest pain or lightheadedness Resp: Denies: dyspnea GI: Denies: abdominal pain : Denies: dysuria, urinary frequency, urinary urgency or hematuria Musc: Denies: neck pain or back pain Skin/Breast: Denies: rash Neuro: Denies: headache(s), difficulty walking, vertigo or confusion PFSH ED PFSH: Medical History Diabetic retinopathy Neuropathy Dyslipidemia Hypertension Diabetes mellitus Lumbar disc disease Spondylolisthesis of cervical region Stenosis of cervical spine with myelopathy Cervical disc disorder with myelopathy of mid-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 Lumbar post-laminectomy syndrome Surgical History History of cholecystectomy 1999 History of colonoscopy 2010 History of lumbosacral spine surgery 2013 L5-S1 decompression History of fusion of cervical spine (06/05/16) C5-C6, C6-C7 ACDFF Family History Grandmother Cancer Diabetes Heart disease Mother Osteoarthritis Social History Smoking and tobacco/nicotine status: current every day tobacco/nicotine user Alcohol intake: never Substance/Drug Use: never Household members: children Marital status: / Current occupational status: disabled Physical Exam Const: GENERAL APPEARANCE: cooperative and comfortable ORIENTATION/CONSCIOUSNESS: Yes awake, Yes oriented to person, Yes oriented to place and Yes oriented to time HENMT: COMMON NORMALS: normocephalic, atraumatic and hearing grossly normal bilaterally HEAD & SCALP: normocephalic and atraumatic Resp: COMMON NORMALS: normal respiratory effort, No retractions, No use of accessory muscles and clear to auscultation bilaterally AUSCULTATION: clear to auscultation bilaterally Cardio: COMMON NORMALS: regular rate, regular rhythm and No murmurs present (Cardio) RATE: regular rate RHYTHM: regular rhythm GI: COMMON NORMALS: Soft to palpation and No hepatosplenomegaly present AUSCULTATION: Yes normoactive bowel sounds PALPATION: Yes Soft to palpation, No Tenderness to palpation present (GI), No Guarding due to palpation present (GI) and Yes No hepatosplenomegaly present Extremity: OTHER: Right ankle significantly swollen large amount of ecchymosis laterally. No obvious deformity neurovascularly lower extremities are intact Neuro: SENSORIUM/ORIENTATION: Yes oriented to person, Yes oriented to place and Yes oriented to time Skin: COMMON NORMALS: no rashes or lesions noted GENERAL SKIN EXAM: no rashes or lesions noted Course Vital Signs: Vital signs: Vital Signs Temperature 98.1 F 11/29/23 10:35 Pulse Rate 72 11/29/23 10:35 Respiratory Rate 18 11/29/23 10:35 Blood Pressure 229/81 11/29/23 10:35 Pulse Oximetry 96 11/29/23 10:44 Oxygen Delivery Me thod Room Air 11/29/23 10:44 MDM - Fall Medical Decision Making Fall with hip pain low back pain. There is no compression fractures in the lumbar spine no fracture in the hip or pelvis on x-ray. She is able to bear weight on the left hip. Right ankle is significantly swollen large amount of ecchymosis laterally. X-ray of the foot and ankle did not show any acute fractures anxious as a badly torn ligaments. Will place her in a posterior splint refer to podiatry nonweightbearing on crutches until evaluated by podiatry. Medical Records I reviewed the patient's medical records. Lab Data I reviewed the patient's lab results. Radiology Impressions Ankle X-Ray 11/29/23 10:34 IMPRESSION: Possible small avulsions off of the distal fibula. Foot X-Ray 11/29/23 11:30 IMPRESSION: No acute findings. All radiology interpretation(s) finalized by discharge Discharge Plan Discharge Patient Disposition: Home Clinical Impression: Sprain of ankle, Fall Condition: Stable Prescriptions: New diclofenac sodium 75 mg tablet,delayed release (DR/EC) 75 mg PO Q12H PRN (Reason: pain) Qty: 20 0RF Discontinued ibuprofen 200 mg Capsule 800 mg PO Q6H PRN (Reason: Pain) No Action gabapentin 300 mg capsule 600 mg PO TID metoprolol succinate 25 mg tablet extended release 24 hr 25 mg PO QPM duloxetine [Cymbalta] 30 mg capsule,delayed release(DR/EC) 30 mg PO BEDTIME glimepiride 4 mg tablet 4 mg PO QPM minocycline 100 mg capsule 100 mg PO BID 7 Days Qty: 14 0RF prednisone 20 mg tablet 20 mg PO DAILY 3 Days Qty: 3 0RF omeprazole 40 mg capsule,delayed release(DR/EC) 40 mg PO DAILY@20 acetaminophen [Tylenol Extra Strength] 500 mg Tablet 1,500 mg PO DAILY PRN (Reason: Pain) simvastatin 40 mg tablet 40 mg PO QPM metformin 500 mg tablet extended release 24 hr 500 mg PO BID@06,20 baclofen 10 mg Tablet 10 mg PO BID lisinopril 20 mg tablet 20 mg PO DAILY Qty: 30 0RF ondansetron 4 mg tablet,disintegrating 4 mg PO Q6H PRN (Reason: nausea and vomiting) Qty: 14 0RF dicyclomine 20 mg tablet 20 mg PO TID PRN (Reason: abdominal pain) Qty: 20 0RF Discharge Orders: Discharge ED (Routine); Ordered 11/29/23 Ordered By: Ralf Granados Referrals: Italo Colindres DO [Primary Care Provider] - Discharge Diet: Usual diet Discharge Activity: Limit activity as instructed Patient Instructions: Ankle Sprain (ED), Opioid Safety, Pain Management Activity Restrictions/Additional Instructions: Thank you for choosing [facility] for your healthcare needs today. It is very important that you follow up as instructed or that you return to the Emergency Department should you have concerns or if your condition changes or worsens in any way. You were seen today after a fall. X-rays did not show any acute fractures she did have significant amount of swelling from soft tissue injury in your right ankle. Recommend nonweightbearing on the right ankle and using crutches case management make arrangements. Follow-up with podiatry. You can use diclofenac as needed for pain elevate the leg is much as you are able and you can also use ice 20 minutes every 2-3 hours. Coding Level of Care Code ED Foreman/Project Manager for Teresa Ashby
--- NOTE | 2023-11-29 11:30 | XRR_ITS ---
PROCEDURE INFORMATION: Exam: XR Right Foot Exam date and time: 11/29/2023 11:34 AM Age: 63 years old Clinical indication: Injury or trauma; Fall; Swelling (edema); Ankle; Right TECHNIQUE: Imaging protocol: Radiologic exam of the right foot. Views: 3 or more views. COMPARISON: CR (LOW EXM, ) 11/29/2023 11:18 AM FINDINGS: Bones/joints: No fracture or other acute abnormality. The bones are demineralized. Joint spaces are unremarkable. Soft tissues: Normal. XR/XR foot RT min 3V* [id number] IMPRESSION: No acute findings.
--- NOTE | 2023-11-29 12:52 | DCPLANNER ---
message sent to podiatry for er f/u
== END 2023-11-29 12:11 | disposition home or self-care (01) ==
PROVIDERS: Emergency Provider Family Medicine; PCP Electrodiagnostic Medicine
DX: S93.401A Sprain of unspecified ligament of right ankle, initial encounter (principal); Z79.84 Long term (current) use of oral hypoglycemic drugs; Z72.0 Tobacco use; E11.40 Type 2 diabetes mellitus with diabetic neuropathy, unspecified; E78.5 Hyperlipidemia, unspecified; I10 Essential (primary) hypertension; W10.8XXA Fall (on) (from) other stairs and steps, initial encounter
CPT/HCPCS: 72100; 73502; 73610; 73630; 99284

== ENCOUNTER → 2023-12-13 09:35 | Outpatient (BNVA) | payer MEDICARE, SELFPAY | PROVIDERS: PCP Electrodiagnostic Medicine; Visit Provider Podiatrist Foot & Ankle Surgery | DX: S93.401A Sprain of unspecified ligament of right ankle, initial encounter; R60.9 Edema, unspecified; W10.9XXA Fall (on) (from) unspecified stairs and steps, initial encounter | CPT/HCPCS: 73610; 99203 ==

== ENCOUNTER 2025-01-08 00:55 | Emergency (ER) | payer MEDICARE, SELFPAY ==
--- OUTSIDE RECORDS SUMMARY | 2025-01-08 00:58 | XMS_ITS | Clinical Summary ---
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
--- OUTSIDE RECORDS SUMMARY | 2025-01-08 00:58 | XMS_ITS | Clinical Summary ---
Author Organization [facility] Address [address] 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 Gender Identity Not on file Sexual Orientation Not on file Plan of Treatment Health Maintenance Due Date Last Done Comments DIABETES ANNUAL FOOT EXAM 1976 DIABETES ANNUAL RETINAL EXAM 1976 DIABETES MICROALBUMIN ANNUAL SCREEN 1976 LDL CHOLESTEROL ANNUAL 1976 DTAP/TDAP/TD VACCINES (1 - Tdap) 1977 PNEUMOCOCCAL VACCINE 50+ YEARS (1 of 2 - PCV) 05/25/19 77 BREAST CANCER SCREENING 1998 COLORECTAL SCREENING 2003 Colorectal Cancer Screening 2003 FIT-DNA Q 3 years 2003 FIT/FOBT Q 1 year 2003 Flex Sig/CT Colonography Q 5 years 2003 ZOSTER VACCINE (1 of 2) 2008 OSTEOPOROSIS SCREENING 2023 DIABETES HBA1C Q 6 MONTHS 03/28/2024 09/26/2023 INFLUENZA VACCINE (#1) 2024 RSV VACCINE (60+ or ) (1 - 1-dose 75+ series) 2033
[2025-01-08 01:01] VITALS: BP 202/90; PULSE 70; TEMP 36.6; O2SAT 97; BMI 26.9
--- NOTE | 2025-01-08 01:10 | W.ED.SKABFB ---
HPI - Skin/Abscess/Foreign Bdy General: Chief complaint: Skin/Abscess/Foreign Body Stated complaint: Abscess on RT side of face Time Seen by Provider: 01/08/25 01:04 History of Present Illness: 64-year-old female presents emergency room with dental pain. Her right jaw hurts. She has very bad dentition on that side. Said she tried to see a dentist but could not. Related Data Home Medications ?Medication ?Instructions ?Recorded ?Confirmed duloxetine 30 mg capsule,delayed 30 mg PO BEDTIME 08/27/19 12/13/23 release (Cymbalta) gabapentin 300 mg capsule 600 mg PO TID 08/27/19 12/13/23 metoprolol succinate 25 mg 25 mg PO QPM 08/27/19 12/13/23 tablet,extended release 24 hr glimepiride 4 mg tablet 4 mg PO QPM 09/09/19 12/13/23 acetaminophen 500 mg tablet 1,500 mg PO DAILY PRN Pain 08/03/20 12/13/23 (Tylenol Extra Strength) metformin 500 mg tablet,extended 500 mg PO BID@,08/03/20 12/13/23 release 24 hr omeprazole 40 mg capsule,delayed 40 mg PO DAILY@20 08/03/20 12/13/23 release simvastatin 40 mg tablet 40 mg PO QPM 08/03/20 12/13/23 baclofen 10 mg tablet 10 mg PO BID 07/30/21 12/13/23 Previous Rx's ?Medication ?Instructions ?Recorded lisinopril 20 mg tablet 20 mg PO DAILY #30 tabs 12/12/22 minocycline 100 mg capsule 100 mg PO BID 7 days #14 caps 12/18/22 prednisone 20 mg tablet 20 mg PO DAILY 3 days #3 tabs 12/18/22 dicyclomine 20 mg tablet 20 mg PO TID PRN abdominal pain 09/23/23 #20 tabs ondansetron 4 mg disintegrating 4 mg PO Q6H PRN nausea and 09/23/23 tablet vomiting #14 tabs diclofenac sodium 75 mg 75 mg PO Q12H PRN pain #20 tabs 11/29/23 tablet,delayed release clindamycin HCl 300 mg capsule 600 mg (2 x 300 mg) PO Q8H 10 days 01/08/25 #60 caps Allergies Allergy/AdvReac Type Severity Reaction Status Date / Time codeine Allergy hives Verified 06/24/24 19:13 morphine Allergy rash Verified 06/24/24 19:13 pantoprazole (From Protonix) Allergy ALGY-Redness Verified 06/24/24 19:13 of Skin Penicillins Allergy boils Verified 06/24/24 19:13 sulfamethoxazole (From Allergy disoriented Verified 06/24/24 19:13 Bactrim) trimethoprim (From Bactrim) Allergy disoriented Verified 06/24/24 19:13 onion AdvReac Intermediate throat Verified 06/24/24 19:13 swellmely Review of Systems Narrative: Constitutional symptoms: Negative except as documented in HPI. Skin symptoms: Negative except as documented in HPI. Eye symptoms: Negative except as documented in HPI. ENMT symptoms: Negative except as documented in HPI. Respiratory symptoms: Negative except as documented in HPI. Cardiovascular symptoms: Negative except as documented in HPI. Gastrointestinal symptoms: Negative except as documented in HPI. Genitourinary symptoms: Negative except as documented in HPI. Musculoskeletal symptoms: Negative except as documented in HPI. Neurologic symptoms: Negative except as documented in HPI. Psychiatric symptoms: Negative except as documented in HPI. Endocrine symptoms: Negative except as documented in HPI. PFSH ED PFSH: Medical History (Updated 01/08/25 @ 01:08 by Radha Macias MD) Diabetic retinopathy Neuropathy Dyslipidemia Hypertension Diabetes mellitus Lumbar disc disease Spondylolisthesis of cervical region Stenosis of cervical spine with myelopathy Cervical disc disorder with myelopathy of mid-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 Lumbar post-laminectomy syndrome Surgical History History of cholecystectomy 1999 History of colonoscopy 2010 History of lumbosacral spine surgery 2013 L5-S1 decompression History of fusion of cervical spine (06/05/16) C5-C6, C6-C7 ACDFF Family History Grandmother Cancer Diabetes Heart disease Mother Osteoarthritis Social History Smoking and tobacco/nicotine status: never used tobacco/nicotine Alcohol intake: never Substance/Drug Use: never Household members: children Marital status: / Current occupational status: disabled Physical Exam Narrative: EXAM NARRATIVE: General: Alert, no acute distress. Skin: warm and dry Head: Normocephalic Neck: Trachea midline Eye: Extraocular movements are intact. Ears, nose, mouth and throat: Oral mucosa moist poor dentition and likely a dental abscess on the right side Respiratory: Respirations are non-labored Musculoskeletal: Normal ROM Gastrointestinal: Abdomen does not appear distended Neurological: Alert and oriented, No focal neurological deficit observed. Psychiatric: Cooperative, appropriate mood & affect. Course Vital Signs: Vital signs: Vital Signs Temperature 98 F 01/08/25 01:01 Pulse Rate 70 01/08/25 01:01 Blood Pressure 202/90 01/08/25 01:01 Pulse Oximetry 97 01/08/25 01:01 Oxygen Delivery Me thod Room Air 01/08/25 01:01 MDM - Skin/Abscess/Foreign Bdy Medicial Decision Making Assessment and plan: Dental abscess ?First dose of clindamycin here in the emergency room and a [place] here. - Discharged home - Discussed plan with patient. Answered any questions. - Evaluation and treatment of this problem were appropriate in the emergency setting. All radiology interpretation(s) finalized by discharge Discharge Plan Discharge Patient Disposition: Home Clinical Impression: Dental abscess Condition: Stable Prescriptions: New clindamycin HCl 300 mg capsule 600 mg PO Q8H 10 Days Qty: 60 0RF No Action gabapentin 300 mg capsule 600 mg PO TID metoprolol succinate 25 mg tablet extended release 24 hr 25 mg PO QPM duloxetine [Cymbalta] 30 mg capsule,delayed release(DR/EC) 30 mg PO BEDTIME glimepiride 4 mg tablet 4 mg PO QPM minocycline 100 mg capsule 100 mg PO BID 7 Days Qty: 14 0RF prednisone 20 mg tablet 20 mg PO DAILY 3 Days Qty: 3 0RF omeprazole 40 mg capsule,delayed release(DR/EC) 40 mg PO DAILY@20 acetaminophen [Tylenol Extra Strength] 500 mg Tablet 1,500 mg PO DAILY PRN (Reason: Pain) simvastatin 40 mg tablet 40 mg PO QPM metformin 500 mg tablet extended release 24 hr 500 mg PO BID@06,20 baclofen 10 mg Tablet 10 mg PO BID lisinopril 20 mg tablet 20 mg PO DAILY Qty: 30 0RF ondansetron 4 mg tablet,disintegrating 4 mg PO Q6H PRN (Reason: nausea and vomiting) Qty: 14 0RF dicyclomine 20 mg tablet 20 mg PO TID PRN (Reason: abdominal pain) Qty: 20 0RF diclofenac sodium 75 mg tablet,delayed release (DR/EC) 75 mg PO Q12H PRN (Reason: pain) Qty: 20 0RF Discharge Orders: Discharge ED (Routine); Ordered 01/08/25 Ordered By: Radha Macias Referrals: Italo Colindres DO [Primary Care Provider, [facility]] Patient Instructions: Opioid Safety, Pain Management, Patient Portal & Sawyer Instructions Print Language: [place] Islander Coding Level of Care Code ED Cbx Operator for Teresa Ashby
[2025-01-08 01:22] VITALS: BP 182/89; PULSE 68; RESP 14; O2SAT 98
[2025-01-08 01:24] VITALS: BP 182/89; PULSE 68; RESP 14; O2SAT 98
== END 2025-01-08 01:30 | disposition home or self-care (01) ==
PROVIDERS: Emergency Provider Emergency Medicine; PCP Electrodiagnostic Medicine
DX: K04.7 Periapical abscess without sinus (principal); Z79.84 Long term (current) use of oral hypoglycemic drugs; E78.5 Hyperlipidemia, unspecified; E11.319 Type 2 diabetes mellitus with unspecified diabetic retinopathy without macular edema; I10 Essential (primary) hypertension
CPT/HCPCS: 99283; J9999

== ENCOUNTER 2025-02-17 18:55 | Inpatient (IN) | payer MEDICARE, SELFPAY ==
[2025-02-17] VITALS (22 sets, daily range): BP systolic 214–249; BP diastolic 99–126; PULSE 67–84; RESP 14–26; TEMP 36.7; O2SAT 94–98; BMI 27.3
--- OUTSIDE RECORDS SUMMARY | 2025-02-17 19:04 | XMS_ITS | Clinical Summary ---
Author Organization [facility] Address [address] 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
--- OUTSIDE RECORDS SUMMARY | 2025-02-17 19:04 | XMS_ITS | Clinical Summary ---
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
[2025-02-17 19:26] LABS: Hematocrit 37.7 % (36-47); Hemoglobin 12.60 g/dL (11.27-16.99); Mean Corpuscular HGB Conc 33.4 g/dL (30-55); Mean Corpuscular Hemoglobin 27.3 pg (27-33); Mean Corpuscular Volume 81.8 fl (85-98); Nucleated Red Blood Cells % 0 %; Platelet Count 148 10^3/cmm (157-399); Red Blood Count 4.61 10^6/uL (3.85-5.65); White Blood Count 9.90 10^3/uL (3.29-11.43)
--- NOTE | 2025-02-17 19:39 | CTR_ITS ---
PROCEDURE INFORMATION: Exam: CT Abdomen And Pelvis With Contrast Exam date and time: 02/17/2025 7:59 PM Age: 64 years old Clinical indication: Abdominal pain; Prior surgery; Surgery date: 6+ months; Surgery type: Gallbladder, hysterectomy; Additional info: Rlq pain TECHNIQUE: Imaging protocol: Computed tomography of the abdomen and pelvis with contrast. Radiation optimization: All CT scans at this facility use at least one of these dose optimization techniques: automated exposure control; mA and/or kV adjustment per patient size (includes targeted exams where dose is matched to clinical indication); or iterative reconstruction. Contrast material: OMNI 350; Contrast volume: 100 ml; Contrast route: INTRAVENOUS (IV); COMPARISON: CT abdomen pelvis w con* [id number] 09/23/2023 6:28 AM RADIATION DOSE METRICS: Total DLP (mGy-cm): 785.53 FINDINGS: Liver: Normal. No mass. Gallbladder and biliary ducts: Cholecystectomy clips. Pancreas: Normal. No ductal dilation. Spleen: Normal. No splenomegaly. Adrenal glands: Normal. No mass. Kidneys and ureters: Normal. No hydronephrosis. Stomach and bowel: Lipoma within the ascending colon close to the hepatic flexure, doubtful clinical significance. Questionable mild wall thickening of colon, at least partially due to underdistention, though can not totally exclude mild infectious or inflammatory colitis. Appendix: No evidence of appendicitis. Intraperitoneal space: Unremarkable. No free air. No significant fluid collection. Vasculature: Aortic atherosclerosis. Lymph nodes: Unremarkable. No enlarged lymph nodes. Urinary bladder: Unremarkable as visualized. Reproductive: Gynecologic organs grossly unremarkable. No hysterectomy has been performed. Bones/joints: [id number] degenerative changes of lumbar vertebrae with multilevel endplate spurring and disc space narrowing. Soft tissues: Unremarkable. Other findings: Gynecologic organs grossly unremarkable. CT/CT abdomen pelvis w con* [id number] IMPRESSION: Questionable mild wall thickening of colon, at least partially due to underdistention, though can not totally exclude mild infectious or inflammatory colitis. No definite appendicitis.
[2025-02-17 19:43] LABS: Alanine Aminotransferase 17 U/L (0-33); Albumin Level 4.0 g/dL (3.5-5.2); Alkaline Phosphatase 141 U/L (35-105); Anion Gap 15.6 (5-19); Aspartate Amino Transferase 17 U/L (0-32); Blood Urea Nitrogen 18 mg/dL (8-23); Calcium 9.2 mg/dL (8.5-10.5); Carbon Dioxide 27 mmol/L (22-29); Chloride 95 mmol/L (98-107); Creatinine Clr Calc Pharmacy 51.6878; Globulin 3.5 g/dL (1.3-4.6); Glucose 270 mg/dL (65-115); Lipase 89 U/L (13-60); Osmolality Calculated 291 mOsm/kg (285-295); Sodium 135 mmol/L (136-145); Total Protein 7.5 g/dL (6.6-8.7)
[2025-02-17 19:44] LABS: Potassium 2.6 mmol/L (3.5-5.1)
[2025-02-17] MEDS: iohexol 350 mg/mL 500 mL Btl (per mL) IV (20:02)
[2025-02-17] MEDS: labetalol 5 mg/mL SDV 20mL 20 MG IVP (20:18)
[2025-02-17 20:19] LABS: Magnesium 2.0 mg/dL (1.7-2.3)
[2025-02-17 20:30] LABS: Glucose Urine UA 2+ (Normal); Nitrate Urine Negative (Negative); Specific Gravity, Urine 1.019 (1.005-1.030)
--- NOTE | 2025-02-17 20:32 | ECG_ITS ---
[facility]: 2025-02-17 Pat Name: Anette Liang Department: Room: Gender: Female Diplomatic Interpreter: : 1960 Requested By: Jomar George Order Number: [id number] David MD: Prosper White M.D. Measurements Intervals [place] Rate: 70 P: 51 NV: 155 QRS: 18 QRSD: 95 T: 30 QT: 396 QTc: 428 Interpretive Statements SINUS RHYTHM POSSIBLE LEFT ATRIAL ENLARGEMENT [-0.1mV P-WAVE IN V1/V2] LEFT VENTRICULAR HYPERTROPHY AND ST-T CHANGE [VOLTAGE CRITERIA PLUS ST/T ABNORMALITY] POSSIBLE SEPTAL MYOCARDIAL INFARCTION , OF INDETERMINATE AGE [30 ms Q WAVE IN V1/V2] Compared to ECG 12/12/2022 08:00:57 ST-T CHANGES ARE NEW Electronically Signed On 02-18-2025 22:11:01 CDT by Prosper White M.D. [email or web address]
[2025-02-17 20:35] LABS: Add Urine Microscopic? YES
--- NOTE | 2025-02-17 20:51 | W.ED.ABDPA2 ---
HPI - Abdominal Pain General: Chief Complaint: Abdominal Pain Stated Complaint: Belly button to right side pain, Liver spots itchy Time Seen by Provider: 02/17/25 18:59 Source: patient Mode of arrival: ambulatory Limitations: no limitations History of Present Illness: Patient is a 64-year-old female with past medical history of hypertension, diabetes, and fatty liver disease who presents to the emergency department complaining of right lower quadrant abdominal pain beginning this morning. States that it began periumbilically and has radiated towards the right lower quadrant and right flank area, describes it as hot/burning. Also states she began having diarrhea this afternoon, but also notes that the previous 3 days she has been taking laxatives but states that these did not seem to help. She also notes that she is having systemic itching, and reports history of having cholecystectomy. She has blood pressure 226/110 with triage, noting prior visits it is always this high. States that she has not taken her night medications yet and that she takes metoprolol and valsartan. No urinary symptoms are reported. No nausea or vomiting. No chest pain or shortness of breath. Denies any blood in her stool. She does not take insulin, does not take any diuretics. MD elicited complaint: abdominal pain Onset (ago): hour(s) Pain Consistency: constant Location: Periumbilical and RLQ Quality: burning (Hot) Radiation: R flank Exacerbating factors: nothing Relieving factors: nothing Associated Symptoms: Reports diarrhea; Denies bloating, change in stool character, chills, constipation, dysuria, fever(s), hematochezia, nausea and vomiting Related Data Home Medications ?Medication ?Instructions ?Recorded ?Confirmed glimepiride 4 mg tablet 4 mg PO QPM 09/09/19 02/18/25 acetaminophen 500 mg tablet 1,500 mg PO DAILY PRN Pain 08/03/20 02/18/25 (Tylenol Extra Strength) omeprazole 40 mg capsule,delayed 40 mg PO DAILY@20 08/03/20 02/18/25 release duloxetine 30 mg capsule,delayed 30 mg PO BEDTIME 02/18/25 02/18/25 release ezetimibe 10 mg tablet 10 mg PO DAILY 02/18/25 02/18/25 famotidine 40 mg tablet 40 mg PO DAILY 02/18/25 02/18/25 metoprolol succinate 100 mg 100 mg PO DAILY 02/18/25 02/18/25 tablet,extended release 24 hr potassium chloride 10 mEq 10 meq PO DAILY 02/18/25 02/18/25 tablet,extended release ropinirole 0.5 mg tablet 0.5 mg PO BID 02/18/25 02/18/25 valsartan 160 mg tablet 160 mg PO DAILY 02/18/25 02/18/25 Allergies Allergy/AdvReac Type Severity Reaction Status Date / Time atorvastatin (From Lipitor) Allergy Unknown Verified 02/17/25 19:07 codeine Allergy hives Verified 02/17/25 19:06 morphine Allergy rash Verified 02/17/25 19:06 pantoprazole (From Protonix) Allergy ALGY-Redness Verified 02/17/25 19:06 of Skin Penicillins Allergy boils Verified 02/17/25 19:06 sulfamethoxazole (From Allergy disoriented Verified 02/17/25 19:06 Bactrim) trimethoprim (From Bactrim) Allergy disoriented Verified 02/17/25 19:06 onion AdvReac Intermediate throat Verified 02/17/25 19:06 yvrose Review of Systems General: Reports: 10 or more systems reviewed and unremarkable except in HPI and below Const: Denies: fever(s), chills, change in appetite, change in weight or diaphoresis ENMT: Denies: throat pain or hoarseness Card: Denies: chest pain, palpitations or lightheadedness Resp: Denies: dyspnea, productive cough or wheezing GI: Reports: abdominal pain and diarrhea; Denies: nausea, vomiting, constipation, bloating, change in stool character or hematochezia : Reports: flank pain; Denies: difficulty voiding, dysuria, urinary frequency or urinary urgency Musc: Denies: neck pain or back pain Skin/Breast: Denies: rash or new lesions Neuro: Denies: headache(s) or dizziness PFSH ED PFSH: Medical History Diabetic retinopathy Neuropathy Dyslipidemia Hypertension Diabetes mellitus Lumbar disc disease Spondylolisthesis of cervical region Stenosis of cervical spine with myelopathy Cervical disc disorder with myelopathy of mid-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 Lumbar post-laminectomy syndrome Surgical History History of cholecystectomy 1999 History of colonoscopy 2010 History of lumbosacral spine surgery 2013 L5-S1 decompression History of fusion of cervical spine (06/05/16) C5-C6, C6-C7 ACDFF Family History Grandmother Cancer Diabetes Heart disease Mother Osteoarthritis Social History Smoking and tobacco/nicotine status: never used tobacco/nicotine Alcohol intake: never Substance/Drug Use: never Household members: children Marital status: / Current occupational status: disabled Physical Exam Const: COMMON NORMALS: no acute distress, patient oriented x3, no limitations and alert GENERAL APPEARANCE: cooperative and comfortable ORIENTATION/CONSCIOUSNESS: Yes awake Eye: COMMON NORMALS: Equal, round and reactive pupils present and EOMs intact bilaterally PUPIL: Yes Equal, round and reactive pupils present Neck/C-Spine: COMMON NORMALS: full ROM, supple, no meningeal signs and no JVD Resp: COMMON NORMALS: normal respiratory effort, No retractions, No use of accessory muscles and clear to auscultation bilaterally AUSCULTATION: clear to auscultation bilaterally, no crackles, no rales, no rhonchi and no wheezes Cardio: COMMON NORMALS: no JVD, regular rate, regular rhythm, S1 normal heart sound present, S2 normal heart sound present, No gallops present (Cardio), No clicks present (Cardio), No murmurs present (Cardio), No rub (Cardio) and Peripheral pulses 2+ throughout RATE: regular rate RHYTHM: regular rhythm HEART SOUNDS: S1 normal heart sound present and S2 normal heart sound present PERIPHERAL PULSES: Peripheral pulses 2+ throughout GI: COMMON NORMALS: Normal to inspection, nondistended, normoactive bowel sounds present, Soft to palpation, No hepatosplenomegaly present and no masses AUSCULTATION: Yes normoactive bowel sounds PALPATION: Yes Soft to palpation, Yes Tenderness to palpation present (GI) Details: RLQ, No Guarding due to palpation present (GI), No Rigid due to palpation and Yes No hepatosplenomegaly present RECTAL EXAM: deferred Extremity: COMMON NORMALS: normal to inspection and full ROM Neuro: COMMON NORMALS: patient oriented x3, moves all extremities, no focal motor deficits and no sensory deficits noted SENSORIUM/ORIENTATION: Yes alert MENINGEAL SIGNS: Yes no meningeal signs Psych: COMMON NORMALS: mental status grossly normal, cooperative and speech normal SPEECH: Yes normal speech Skin: NARRATIVE SKIN EXAM: Scattered small hyperpigmented lesions to bilateral upper and lower extremities Course Vital Signs: Vital signs: Vital Signs Temperature 98.6 F 02/18/25 12:00 Pulse Rate 96 02/18/25 13:02 Respiratory Rate 18 02/18/25 13:02 Blood Pressure 131/59 02/18/25 13:02 Pulse Oximetry 91 02/18/25 13:02 Oxygen Delivery Me thod Room Air 02/18/25 06:00 MDM - Abdominal Pain Medical Decision Making Patient presented with complaints of right lower quadrant pain as well as diarrhea that began today after taking laxatives over the prior few days. History of chronic hypertension, in the past she has been seen here with systolic greater than 200 and at this time with triage her blood pressure is 226/110. On lab work she is found to be severely hypokalemic at 2.6, no other significant electrolyte derangements. Her creatinine is also mildly elevated to 1.2. Abdomen and pelvis CT does not show any acute abdominal findings other than some mild colitis. After speaking with hospitalist in regards to her accelerated hypertension that is difficult to control here in the emergency department with medications, as well as her hypokalemia she will be admitted to the hospital. Admitting hospitalist Dr. Gandhi who is recommending to start on IV Cipro and Flagyl. Patient was began on p.o. potassium earlier in the stay after lab results, however denied wanting IV potassium due to the pain. She also threatened to leave multiple times to go and smoke a cigarette however obliged to stay into the hospital for electrolyte replacement and control of her blood pressure. Suspect that there is an element of subtherapeutic pharmaceutical control and that this will be addressed prior to discharge. No surgical emergency in regards to her abdominal pain, this is likely related to the mild colitis and her hypokalemia likely secondary to acute GI loss from her diarrhea. Dr. Be put in admit orders at this time. Lab Data 02/18/25 05:13 02/18/25 05:13 Labs/Radiology: Radiology Impressions Abdomen/Pelvis CT 02/17/25 19:39 IMPRESSION: Questionable mild wall thickening of colon, at least partially due to underdistention, though can not totally exclude mild infectious or inflammatory colitis. No definite appendicitis. Laboratory Results WBC 9.90 10^3/uL (3.29-11.43) 02/17/25 19:19 RBC 4.61 10^6/uL (3.85-5.65) 02/17/25 19:19 Hgb 12.60 g/dL (11.27-16.99) 02/17/25 19:19 Hct 37.7 % (36-47) 02/17/25 19:19 MCV 81.8 fl (85-98) L 02/17/25 19:19 MCH 27.3 pg (27-33) 02/17/25 19:19 MCHC 33.4 g/dL (30-55) 02/17/25 19:19 RDW 16.7 % (12.1-15.1) H 02/17/25 19:19 Plt Count 148 10^3/cmm (157-399) L 02/17/25 19:19 MPV 10.8 fL (7.4-10.4) H 02/17/25 19:19 Neut % (Auto) 66.6 % 02/17/25 19:19 Lymph % (Auto) 23.8 % 02/17/25 19:19 Placer % (Auto) 6.2 % 02/17/25 19:19 Eos % (Auto) 2.7 % 02/17/25 19:19 Baso % (Auto) 0.4 % 02/17/25 19:19 Neut # (Auto) 6.59 10^3/uL (1.8-7.7) 02/17/25 19:19 Lymph # (Auto) 2.4 10^3/uL (0.8-4.8) 02/17/25 19:19 Placer # (Auto) 0.6 10^3/uL (0.2-0.9) 02/17/25 19:19 Eos # (Auto) 0.3 10^3/uL (0.0-0.8) 02/17/25 19:19 Baso # (Auto) 0.0 10^3/uL (0.0-0.1) 02/17/25 19:19 Nucleated RBC % (auto) 0 % 02/17/25 19:19 Nucleated RBCs # 0.0 /100WBC 02/17/25 19:19 Sodium 135 mmol/L (136-145) L 02/17/25 19:19 Potassium 2.6 mmol/L (3.5-5.1) L* 02/17/25 19:19 Chloride 95 mmol/L (98-107) L 02/17/25 19:19 Carbon Dioxide 27 mmol/L (22-29) 02/17/25 19:19 Anion Gap 15.6 (5-19) 02/17/25 19:19 BUN 18 mg/dL (8-23) 02/17/25 19:19 Creatinine 1.2 mg/dL (0.5-0.9) H 02/17/25 19:19 GFR Calculation 44.9 mL/min (90-130) L 02/17/25 19:19 Glucose 270 mg/dL (65-115) H 02/17/25 19:19 Calculated Osmolality 291 mOsm/kg (285-295) 02/17/25 19:19 Calcium 9.2 mg/dL (8.5-10.5) 02/17/25 19:19 Magnesium 2.0 mg/dL (1.7-2.3) 02/17/25 19:19 Total Bilirubin 0.2 mg/dL (0.15-1.2) 02/17/25 19:19 AST 17 U/L (0-32) 02/17/25 19:19 ALT 17 U/L (0-33) 02/17/25 19:19 Alkaline Phosphatase 141 U/L (35-105) H 02/17/25 19:19 Total Protein 7.5 g/dL (6.6-8.7) 02/17/25 19:19 Albumin 4.0 g/dL (3.5-5.2) 02/17/25 19:19 Globulin 3.5 g/dL (1.3-4.6) 02/17/25 19:19 Lipase 89 U/L (13-60) H 02/17/25 19:19 Urine Color Yellow (Yellow) 02/17/25 20:24 Urine Appearance Clear (CLEAR) 02/17/25 20:24 Urine pH 6.5 (5-7) 02/17/25 20:24 Ur Specific [place] 1.019 (1.005-1.030) 02/17/25 20:24 Urine Protein 3+ (Negative) A 02/17/25 20:24 Urine Glucose (UA) 2+ (Normal) H 02/17/25 20:24 Urine Ketones Negative (Negative) 02/17/25 20:24 Urine Blood 2+ (Negative) A 02/17/25 20:24 Urine Nitrate Negative (Negative) 02/17/25 20: Urine Bilirubin Negative (Negative) 02/17/25 20:24 Urine Urobilinogen 1.0 mg/dL (Negative) 02/17/25 20:24 Ur Leukocyte Esterase Negative (Negative) 02/17/25 20:24 Urine RBC 51-100 /hpf (0-2) H 02/17/25 20:24 Urine WBC 0-5 /hpf (0-5) 02/17/25 20:24 Ur Squamous Epith Cells 0-5 /hpf (0-5) 02/17/25 20:24 Amorphous Sediment Not Reportable 02/17/25 20:24 Urine Bacteria Trace /hpf (NONE) 02/17/25 20:24 Hyaline Casts 0.40 /lpf 02/17/25 20:24 All radiology interpretation(s) finalized by discharge Discharge Plan Discharge Patient Disposition: Admitted As Inpatient Admit Provider: Mami Granda Clinical Impression: Acute hypokalemia, Colitis, Diarrhea, Hypertension Condition: Stable Coding Level of Care Code ED Solution Sales Senior Executive for Teresa Ashby
[2025-02-17] MEDS: hyDRALAzine 20 mg/mL INJ 1 mL IVP ×2 (21:25→23:39)
--- NOTE | 2025-02-17 23:16 | PM.HP ---
Providers/Chief Complaint Admitting Physician: ALISON MIRANDA DO--- patient seen and evaluated admitted before 12 midnight Primary Care Provider: Italo Colindres DO Chief Complaint: Belly button to right side pain, Liver spots itchy History of Present Illness Anette Liang is a 64 year old female with medical history significant for constipation uncontrolled high blood pressure presented with a right upper quadrant abdominal pain with diarrhea. Patient had taken laxative daily x 3 days and ended up with diarrhea. However patient presented to be sure that the abdominal pain is not anything significant. In the emergency room CT of the abdomen and pelvics were done I was remarkable for colonic wall thickening on the right side with suspicion of colitis in the area. Patient also had potassium of 2.6 and received 40 mEq orally x 2 times in 3 hours interval because patient could not tolerate IV potassium going through veins. Magnesium is normal at 2.0. Patient received a dose of Flagyl and a dose of IV ciprofloxacin. Patient does have some dehydration with a GFR lower than normal at 44.9. IV fluid initiated. However patient blood pressure systolic was above 220-248 diastolic greater than 110. Patient blood pressure managed with IV hydralazine x 2 times daily. Patient is now in ICU 5 doing better with blood pressure optimized right now she is 153/78 Review of Systems Narrative: System review upon 10 organ system review with remarkable for abdominal pain gastrointestinal and cardiovascular with blood pressure otherwise unremarkable. Medications/Allergies Home Medications ?Medication ?Instructions ?Recorded ?Confirmed ?Last Taken ?Type duloxetine 30 mg capsule,delayed 30 mg PO BEDTIME 08/27/19 12/13/23 12/11/22 History release (Cymbalta) gabapentin 300 mg capsule 600 mg PO TID 08/27/19 12/13/23 12/11/22 History metoprolol succinate 25 mg 25 mg PO QPM 08/27/19 12/13/23 12/11/22 History tablet,extended release 24 hr glimepiride 4 mg tablet 4 mg PO QPM 09/09/19 12/13/23 12/11/22 History acetaminophen 500 mg tablet 1,500 mg PO DAILY PRN Pain 08/03/20 12/13/23 Unknown History (Tylenol Extra Strength) metformin 500 mg tablet,extended 500 mg PO BID@,08/03/20 12/13/23 12/11/22 History release 24 hr omeprazole 40 mg capsule,delayed 40 mg PO DAILY@20 08/03/20 12/13/23 12/11/22 History release simvastatin 40 mg tablet 40 mg PO QPM 08/03/20 12/13/23 12/11/22 History baclofen 10 mg tablet 10 mg PO BID 07/30/21 12/13/23 12/11/22 History lisinopril 20 mg tablet 20 mg PO DAILY #30 tabs 12/12/22 12/13/23 Unknown Rx minocycline 100 mg capsule 100 mg PO BID 7 days #14 caps 12/18/22 12/13/23 Unknown Rx prednisone 20 mg tablet 20 mg PO DAILY 3 days #3 tabs 12/18/22 12/13/23 Unknown Rx dicyclomine 20 mg tablet 20 mg PO TID PRN abdominal pain 09/23/23 12/13/23 Unknown Rx #20 tabs ondansetron 4 mg disintegrating 4 mg PO Q6H PRN nausea and 09/23/23 12/13/23 Unknown Rx tablet vomiting #14 tabs diclofenac sodium 75 mg 75 mg PO Q12H PRN pain #20 tabs 11/29/23 12/13/23 Unknown Rx tablet,delayed release Allergies Allergy/AdvReac Type Severity Reaction Status Date / Time atorvastatin (From Lipitor) Allergy Unknown Verified 02/17/25 19:07 codeine Allergy hives Verified 02/17/25 19:06 morphine Allergy rash Verified 02/17/25 19:06 pantoprazole (From Protonix) Allergy ALGY-Redness Verified 02/17/25 19:06 of Skin Penicillins Allergy boils Verified 02/17/25 19:06 sulfamethoxazole (From Allergy disoriented Verified 02/17/25 19:06 Bactrim) trimethoprim (From Bactrim) Allergy disoriented Verified 02/17/25 19:06 onion AdvReac Intermediate throat Verified 02/17/25 19:06 swells PFSH Acute PFSH: Medical History Diabetic retinopathy Neuropathy Dyslipidemia Hypertension Diabetes mellitus Lumbar disc disease Spondylolisthesis of cervical region Stenosis of cervical spine with myelopathy Cervical disc disorder with myelopathy of mid-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 Lumbar post-laminectomy syndrome Surgical History History of cholecystectomy 1999 History of colonoscopy 2010 History of lumbosacral spine surgery 2012 L5-S1 decompression History of fusion of cervical spine (06/05/16) C5-C6, C6-C7 ACDFF Family History Grandmother Cancer Diabetes Heart disease Mother Osteoarthritis Social History Smoking and tobacco/nicotine status: never used tobacco/nicotine Alcohol intake: never Substance/Drug Use: never Household members: children Marital status: / Current occupational status: disabled Vitals/I&O/Wt Last Vital Signs Temp 98.0 F 02/17/25 19:02 Pulse 80 02/17/25 21:40 Resp 26 H 02/17/25 21:40 BP 214/100 02/17/25 21:40 Pulse Ox 97 02/17/25 21:40 O2 Del Method Room Air 02/17/25 20:06 Weight last 48 hrs Weight 81.647 kg Physical Exam Narrative: Generally patient is in no apparent distress concerned about the blood pressures. HEENT normocephalic atraumatic neck neck is supple cardiovascular heart rate is regular lungs are pretty much clear abdomen soft nontender nondistended unremarkable extremities are intact no edema has good pulses neurology has no focality lab studies lab studies reviewed and noted. Data 02/17/25 19:19 02/17/25 19:19 Micro: Microbiology 02/17/25 22:28 Blood Culture - Preliminary Blood SPECIMEN COLLECTED 02/17/25 22:20 Blood Culture - Preliminary Blood SPECIMEN COLLECTED A&P Assessment and plan 1. Hypertension: 2. Diarrhea: 3. Colitis: 4. Acute hypokalemia: 5. Dehydration: Plan: #1 Colitis with abdominal pain - Admit to general medical floor to ICU MedSurg overflow - IV Flagyl and ciprofloxacin ordered to treat - IV fluid with gentle hydration - Show stool be available that should be sent for cultures and Gram stans #2 Dehydration - Continue with gentle hydration at 75 cc an hour of normal saline #3 Hypokalemia - Patient does not want IV potassium oral potassium has been used. Patient had received a total of 80 mEq of oral potassium in 2 divided doses Follow-up with lab studies #4 Accelerated high blood pressure - Blood pressure well above 200 over greater than 110 had been optimize - Systolic blood pressure now in the 150s over 70s #5 GI and DVT prophylaxis in place PDMP PDMP Reviewed: Last Reviewed 02/18/25 04:27 by Alison Miranda MD Attestations Medical Necessity Statement*: Patient with colitis and with accelerated high blood pressure must optimize and would need at least 2 midnights for optimization of care. Patient meets inpatient criteria. Coding Level of Care Code 46587 Diagnoses Hypertension I10 Diarrhea R19.7 Colitis K52.9 Acute hypokalemia E87.6 Dehydration E86.0 Time Spent (min) 60
[2025-02-17] MEDS: ondansetron 2 mg/ML SDV 2 mL 4 MG IVP (23:39)
[2025-02-17] MEDS: metroNIDAZOLE IV 500 MG/100 ML PREMIX 100 MG IV (23:39)
[2025-02-18] VITALS (54 sets, daily range): BP systolic 122–253; BP diastolic 59–117; PULSE 85–108; RESP 6–23; TEMP 37–37.6; O2SAT 89–95
[2025-02-18] MEDS: metoprolol succinate ER (24 HR) 25 mg Tablet PO ×3 (03:25→18:03)
--- NOTE | 2025-02-18 03:41 | PC.NURSE ---
Heparin Patient refused subq heparin. Education provided on risk of blood clots; patient verbalized understanding and still refused. Dr. Granda notified.
[2025-02-18 05:22] LABS: Hematocrit 41.7 % (36-47); Hemoglobin 13.40 g/dL (11.27-16.99); Mean Corpuscular HGB Conc 32.1 g/dL (30-55); Mean Corpuscular Hemoglobin 27.4 pg (27-33); Mean Corpuscular Volume 85.3 fl (85-98); Nucleated Red Blood Cells % 0 %; Platelet Count 159 10^3/cmm (157-399); Red Blood Count 4.89 10^6/uL (3.85-5.65); White Blood Count 12.72 10^3/uL (3.29-11.43)
[2025-02-18 05:37] LABS: Alanine Aminotransferase 16 U/L (0-33); Albumin Level 4.1 g/dL (3.5-5.2); Alkaline Phosphatase 127 U/L (35-105); Anion Gap 20.4 (5-19); Aspartate Amino Transferase 19 U/L (0-32); Blood Urea Nitrogen 15 mg/dL (8-23); Calcium 9.4 mg/dL (8.5-10.5); Carbon Dioxide 23 mmol/L (22-29); Chloride 97 mmol/L (98-107); Creatinine Clr Calc Pharmacy 56.3289; Globulin 4.0 g/dL (1.3-4.6); Glucose 265 mg/dL (65-115); Magnesium 2.1 mg/dL (1.7-2.3); Osmolality Calculated 294 mOsm/kg (285-295); Potassium 3.4 mmol/L (3.5-5.1); Sodium 137 mmol/L (136-145); Total Protein 8.1 g/dL (6.6-8.7)
--- NOTE | 2025-02-18 06:00 | PC.NURSE ---
Blood Pressure Patient's blood pressure 253/[address] Granda contacted and the following orders received: 20 mg IVP hydralazine once now, 100 mg hydralazine PO once now, hydralazine 100 mg PO BID scheduled, 40 mg lisinopril PO daily, and 25 mg metoprolol XL PO daily.
[2025-02-18] MEDS: hyDRALAzine 20 mg/mL INJ 1 mL IVP (06:06)
[2025-02-18] MEDS: metroNIDAZOLE IV 500 MG/100 ML PREMIX 100 MG IV ×3 (08:05→23:54)
[2025-02-18] MEDS: sodium chlor 0.9% + KCl 20 mEq 20 MEQ/1,000 ML BAG 100 MEQ IV ×2 (09:44→18:05)
--- NOTE | 2025-02-18 13:03 | PC.NURSE ---
Patient received from ICU via wheelchair. Patient resting with eyes closed. Responds appropriately. Fluids running as ordered to right ac
--- NOTE | 2025-02-18 16:19 | P.PN_ITS ---
Subjective 2 Subjective: 64-year-old female admitted wi th colitis states that her diarrhea resolved and she is feeling better just tired. She is companied by her granddaughter Nora Vitals/I&O/Wt Last Vital Signs Temp 98.6 F 02/18/25 12:00 Pulse 85 02/18/25 15:45 Resp 22 H 02/18/25 15:45 BP 152/70 02/18/25 15:45 Pulse Ox 90 02/18/25 15:45 O2 Del Method Room Air 02/18/25 06:00 02/18/25 02/18/25 02/18/25 06:59 14:59 22:59 Intake Total 300 / 300 1431.667 / 1431.667 100 / 1531.667 Output Total 200 / 200 Balance 100 / 100 1431.667 / 1431.667 100 / 1531.667 Weight last 48 hrs Weight 82.463 kg Weight 81.465 kg Weight 81.647 kg Physical Exam 2 Narrative: General well-developed well-nourished overweight female drowsy lethargic but cooperative CV regular rate and rhythm Lungs clear to auscultation bilaterally Abdomen diminished bowel tones soft nontender Calves no tenderness or pretibial edema Data 02/18/25 05:13 02/18/25 05:13 Micro: Microbiology 02/17/25 22:28 Blood Culture - Preliminary Blood SPECIMEN COLLECTED 02/17/25 22:20 Blood Culture - Preliminary Blood SPECIMEN COLLECTED A&P Assessment and plan 1. Hypertension: This is much improved after multiple needed doses of hydralazine to get blood pressure under control patient also received metoprolol lisinopril labetalol and now blood pressure is 152/70 2. Diarrhea: Resolved 3. Colitis: Continue with Cipro changed to oral and metronidazole continued IV. 4. Acute hypokalemia: Treated and improved 5. Dehydration: Resolved with IV fluid PDMP PDMP Reviewed: Not Reviewed Attestations 2 Medical Necessity Statement*: Patient remained in the hospital overnight for continued IV fluids and repeat labs. Advance diet as tolerated potential discharge tomorrow Coding Level of Care Code 57055 Diagnoses Hypertension I10 Hypertension type: primary hypertension Diarrhea R19.7 Diarrhea type: unspecified type Colitis K52.9 Acute hypokalemia E87.6 Dehydration E86.0 Time Spent (min) 25
[2025-02-19 03:16] VITALS: BP 169/76; PULSE 88; RESP 15; TEMP 36.3; O2SAT 94
[2025-02-19 04:32] LABS: Hematocrit 33.7 % (36-47); Hemoglobin 10.80 g/dL (11.27-16.99); Mean Corpuscular HGB Conc 32.0 g/dL (30-55); Mean Corpuscular Hemoglobin 27.2 pg (27-33); Mean Corpuscular Volume 84.9 fl (85-98); Nucleated Red Blood Cells % 0 %; Platelet Count 155 10^3/cmm (157-399); Red Blood Count 3.97 10^6/uL (3.85-5.65); White Blood Count 10.69 10^3/uL (3.29-11.43)
[2025-02-19 04:57] LABS: Alanine Aminotransferase 11 U/L (0-33); Albumin Level 3.4 g/dL (3.5-5.2); Alkaline Phosphatase 90 U/L (35-105); Anion Gap 15.3 (5-19); Aspartate Amino Transferase 21 U/L (0-32); Blood Urea Nitrogen 14 mg/dL (8-23); Calcium 8.5 mg/dL (8.5-10.5); Carbon Dioxide 21 mmol/L (22-29); Chloride 101 mmol/L (98-107); Creatinine Clr Calc Pharmacy 56.6459; Globulin 2.9 g/dL (1.3-4.6); Glucose 197 mg/dL (65-115); Osmolality Calculated 284 mOsm/kg (285-295); Potassium 3.3 mmol/L (3.5-5.1); Sodium 134 mmol/L (136-145); Total Protein 6.3 g/dL (6.6-8.7)
[2025-02-19] MEDS: sodium chlor 0.9% + KCl 20 mEq 20 MEQ/1,000 ML BAG 100 MEQ IV (05:17)
[2025-02-19 08:00] VITALS: BP 182/92; PULSE 90; RESP 20; TEMP 36.7; O2SAT 95
[2025-02-19] MEDS: metoprolol succinate ER (24 HR) 25 mg Tablet PO (08:15)
[2025-02-19] MEDS: metroNIDAZOLE IV 500 MG/100 ML PREMIX 100 MG IV (08:17)
[2025-02-19] MEDS: metoprolol succinate ER (24 HR) 100 mg Tablet PO (10:06)
[2025-02-19 12:47] VITALS: BP 180/82
--- NOTE | 2025-02-19 13:42 | PM.DCS ---
Discharge Providers Date of Admission: 02/18/25 01:52 Date of Discharge: February 19, 2025 Attending Provider at Admission: Mami Granda MD Attending Provider at Discharge: Wu Stearns MD Primary Care Provider: Italo Colindres DO Diagnoses at Discharge Discharge Diagnosis 1. Hypertension: Details from hospital stay: Patient has hypokalemia and hypertension suspicious for hyperaldosteronism. She is on potassium 10 mEq daily despite not being on a diuretic and came in still hypokalemia with a potassium of 2.6. Looking at old records patient has had blood pressures as high as 230/113 and potassiums running 3.3 despite being on potassium. This time is worse because she came in with diarrhea 2. Diarrhea: Details from hospital stay: Patient has constipation sometimes not having bowel movement but just weekly. She has been on laxatives including Ex-Lax aggressively causing diarrhea preceding this admission and hypokalemia was even worse than usual. Patient has bowel habit change of constipation last colonoscopy was 2010 3. Colitis: Details from hospital stay: Seen on CT scan but no white count and no abdominal tenderness. She is treated empirically with metronidazole and Cipro and will continue that follow-up for outpatient colonoscopy. CT scan shows mild aortic calcifications. She is not tender on exam I do not think this represents ischemic colitis 4. Acute hypokalemia: Details from hospital stay: Acute on chronic with potassium 2.6 but baseline is 3.3 despite potassium replacement of 10 mEq daily not on diuretics 5. Dehydration: Details from hospital stay: Patient received IV fluids now puffy. IV fluids stopped Reason for Visit Reason for Visit: Belly button to right side pain, Liver spots itchy Brief History: teressa Liang is a 64 year old female with medical history significant for constipation uncontrolled high blood pressure presented with a right upper quadrant abdominal pain with diarrhea. Patient had taken laxative daily x 3 days and ended up with diarrhea. However patient presented to be sure that the abdominal pain is not anything significant. In the emergency room CT of the abdomen and pelvics were done I was remarkable for colonic wall thickening on the right side with suspicion of colitis in the area. Patient also had potassium of 2.6 and received 40 mEq orally x 2 times in 3 hours interval because patient could not tolerate IV potassium going through veins. Magnesium is normal at 2.0. Patient received a dose of Flagyl and a dose of IV ciprofloxacin. Patient does have some dehydration with a GFR lower than normal at 44.9. IV fluid initiated. However patient blood pressure systolic was above 220-248 diastolic greater than 110. Patient blood pressure managed with IV hydralazine x 2 times daily. Patient is now in ICU 5 doing better with blood pressure optimized right now she is 153/78 Hospital Course Hospital Course Patient was hydrated and potassium replaced as well as treated with multiple doses of hydralazine 20 mg IV for hypertension. This improved but patient's blood pressure still high and potassium replacement was only partially effective consistent with hyperaldosteronism. Patient was started on spironolactone, hydralazine and amlodipine. Blood pressure is in a safe range. She did not have bowel movements here however abdominal exam is benign and she is passing gas with normal bowel tones. Additionally she is eating regular diet. Physical Exam Narrative: General well-developed well-nourished female in no acute cardiopulmonary stress CV regular rate and rhythm Lungs clear to auscultation bilaterally Abdomen positive bowel tones soft nontender no masses Calves no tenderness cords or pretibial edema Skin is warm and dry Discharge Data Studies Completed and Pending Completed Studies During Hospitalization Category Date Time Status CT abdomen pelvis w con* [id number] Urgent Cat Scan 02/17/25 19:39 Completed Pending at discharge Category Date Time Status Blood Culture Stat Lab 02/17/25 22:28 Results Urine Culture Stat Lab 02/17/25 20:24 Results Radiology Impressions Abdomen/Pelvis CT 02/17/25 19:39 IMPRESSION: Questionable mild wall thickening of colon, at least partially due to underdistention, though can not totally exclude mild infectious or inflammatory colitis. No definite appendicitis. Laboratory Results WBC 10.69 10^3/uL (3.29-11.43) 02/19/25 03:57 RBC 3.97 10^6/uL (3.85-5.65) 02/19/25 03:57 Hgb 10.80 g/dL (11.27-16.99) L 02/19/25 03:57 Hct 33.7 % (36-47) L 02/19/25 03:57 MCV 84.9 fl (85-98) L 02/19/25 03:57 MCH 27.2 pg (27-33) 02/19/25 03:57 MCHC 32.0 g/dL (30-55) 02/19/25 03:57 RDW 17.6 % (12.1-15.1) H 02/19/25 03:57 Plt Count 155 10^3/cmm (157-399) L 02/19/25 03:57 MPV 11.6 fL (7.4-10.4) H 02/19/25 03:57 Neut % (Auto) 71.4 % 02/19/25 03:57 Lymph % (Auto) 19.7 % 02/19/25 03:57 [place] % (Auto) 7.5 % 02/19/25 03:57 Eos % (Auto) 0.4 % 02/19/25 03:57 Baso % (Auto) 0.5 % 02/19/25 03:57 Neut # (Auto) 7.64 10^3/uL (1.8-7.7) 02/19/25 03:57 Lymph # (Auto) 2.1 10^3/uL (0.8-4.8) 02/19/25 03:57 [place] # (Auto) 0.8 10^3/uL (0.2-0.9) 02/19/25 03:57 Eos # (Auto) 0.0 10^3/uL (0.0-0.8) 02/19/25 03:57 Baso # (Auto) 0.1 10^3/uL (0.0-0.1) 02/19/25 03:57 Nucleated RBC % (auto) 0 % 02/19/25 03:57 Nucleated RBCs # 0.0 /100WBC 02/19/25 03:57 Sodium 134 mmol/L (136-145) L 02/19/25 03:57 Potassium 3.3 mmol/L (3.5-5.1) L 02/19/25 03:57 Chloride 101 mmol/L (98-107) 02/19/25 03:57 Carbon Dioxide 21 mmol/L (22-29) L 02/19/25 03:57 Anion Gap 15.3 (5-19) 02/19/25 03:57 BUN 14 mg/dL (8-23) 02/19/25 03:57 Creatinine 1.1 mg/dL (0.5-0.9) H 02/19/25 03:57 GFR Calculation 49.7 mL/min (90-130) L 02/19/25 03:57 Glucose 197 mg/dL (65-115) H 02/19/25 03:57 Calculated Osmolality 284 mOsm/kg (285-295) L 02/19/25 03:57 Calcium 8.5 mg/dL (8.5-10.5) 02/19/25 03:57 Phosphorus 3.1 mg/dL (2.5-4.5) 02/18/25 05:13 Magnesium 2.1 mg/dL (1.7-2.3) 02/18/25 05:13 Total Bilirubin 0.4 mg/dL (0.15-1.2) 02/19/25 03:57 AST 21 U/L (0-32) 02/19/25 03:57 ALT 11 U/L (0-33) 02/19/25 03:57 Alkaline Phosphatase 90 U/L (35-105) 02/19/25 03:57 Total Protein 6.3 g/dL (6.6-8.7) L D 02/19/25 03:57 Albumin 3.4 g/dL (3.5-5.2) L 02/19/25 03:57 Globulin 2.9 g/dL (1.3-4.6) 02/19/25 03:57 Lipase 89 U/L (13-60) H 02/17/25 19:19 Urine Color Yellow (Yellow) 02/17/25 20:24 Urine Appearance Clear (CLEAR) 02/17/25 20:24 Urine pH 6.5 (5-7) 02/17/25 20:24 Ur Specific [place] 1.019 (1.005-1.030) 02/17/25 20:24 Urine Protein 3+ (Negative) A 02/17/25 20:24 Urine Glucose (UA) 2+ (Normal) H 02/17/25 20:24 Urine Ketones Negative (Negative) 02/17/25 20:24 Urine Blood 2+ (Negative) A 02/17/25 20:24 Urine Nitrate Negative (Negative) 02/17/25 20:24 Urine Bilirubin Negative (Negative) 02/17/25 20:24 Urine Urobilinogen 1.0 mg/dL (Negative) 02/17/25 20:24 Ur Leukocyte Esterase Negative (Negative) 02/17/25 20:24 Urine RBC 51-100 /hpf (0-2) H 02/17/25 20:24 Urine WBC 0-5 /hpf (0-5) 02/17/25 20:24 Ur Squamous Epith Cells 0-5 /hpf (0-5) 02/17/25 20:24 Amorphous Sediment Not Reportable 02/17/25 20:24 Urine Bacteria Trace /hpf (NONE) 02/17/25 20:24 Hyaline Casts 0.40 /lpf 02/17/25 20:24 Vitals Last Vital Signs Temp 98.0 F 02/19/25 08:00 Pulse 90 02/19/25 08:00 Resp 20 H 02/19/25 08:00 BP 180/82 02/19/25 12:47 Pulse Ox 95 02/19/25 08:00 O2 Del Method Nasal Cannula 02/19/25 08:00 O2 Flow Rate 2 02/19/25 08:00 Discharge Plan Discharge Patient Disposition: Home Condition: Stable Prescriptions: New docusate sodium 100 mg Capsule 100 mg PO BID Qty: 60 0RF ciprofloxacin HCl 500 mg Tablet 500 mg PO BID@0900,2100 Qty: 6 0RF aspirin 81 mg Tablet,Delayed Release (Dr/Ec) 81 mg PO DAILY Qty: 30 0RF metronidazole 500 mg tablet 500 mg PO TID Qty: 15 0RF hydralazine 50 mg Tablet 100 mg PO BID Qty: 120 0RF Rx Instructions: if SBP below 120 take 50 mg bid or skip amlodipine 5 mg Tablet 5 mg PO DAILY Qty: 30 0RF spironolactone 25 mg Tablet 25 mg PO BID Qty: 60 0RF Continued glimepiride 4 mg tablet 4 mg PO QPM omeprazole 40 mg capsule,delayed release(DR/EC) 40 mg PO DAILY@20 acetaminophen [Tylenol Extra Strength] 500 mg Tablet 1,500 mg PO DAILY PRN (Reason: Pain) famotidine 40 mg tablet 40 mg PO DAILY metoprolol succinate 100 mg tablet extended release 24 hr 100 mg PO DAILY ropinirole 0.5 mg tablet 0.5 mg PO BID ezetimibe 10 mg tablet 10 mg PO DAILY duloxetine 30 mg capsule,delayed release(DR/EC) 30 mg PO BEDTIME Changed valsartan 160 mg tablet 160 mg PO BID Qty: 60 0RF Discontinued potassium chloride 10 mEq tablet extended release 10 meq PO DAILY Discharge Order = DC NOW: Discharge Order (Routine); Ordered 02/19/25 Ordered By: Wu Stearns Other Ambulatory Orders: Basic Metabolic Panel (Routine) Timeframe: 1 Week Facility: [facility] - Location: Lab - Main Lab Ordered By: Wu Stearns Referrals: Newton Redman MD [Physician, General Surgery] - 2 weeks Italo Colindres DO [Primary Care Provider, [facility]] - 02/26/25 9:10 am Discharge Diet: Low Salt Discharge Activity: Resume usual activity Patient Instructions: Constipation (GEN), Colitis (ED), Opioid Safety, Patient Portal & Sawyer Instructions Activity Restrictions/Additional Instructions: Resume regular diet with stool softeners. Finish out your antibiotics for the next 5 days. Follow-up with general surgery for colonoscopy as you have bowel habit change and no colonoscopy since 2010 Your blood pressure was out of control here as it has been multiple times in the emergency department. I suggest you get a new blood pressure machine at home that works on the arm instead of at the wrist to make sure that your blood pressure readings are accurate. I started you on spironolactone which is for low potassium related hypertension suggestive of hyperaldosteronism. Follow-up your lab with your physician in 1 week Discharge Attestations Time Spent in Discharge Care*: greater than 30 min Time Spent in Smoking Cessation: Patient is not a smoker Quality Metrics Clinical Quality Measures [ No reported AMI, CVA or VTE this stay] Coding Level of Care Code 55931 Diagnoses Hypertension I10 Hypertension type: primary hypertension Diarrhea R19.7 Diarrhea type: unspecified type Colitis K52.9 Acute hypokalemia E87.6 Dehydration E86.0
[2025-02-19 13:55] VITALS: BP 173/80
--- NOTE | 2025-02-19 14:54 | PC.NURSE ---
Patient discharged to home. Instruction provided regarding follow up needs, new medications with changes and encouraged her to keep a BP log to take with her to her appointments. Patient verbalized complete understanding. [facility] Patient taken by wheelchair to private vehicle. Patient denies pain or needs. No distress observed.
[2025-02-19 14:58] VITALS: BP 181/85; PULSE 84; RESP 18; O2SAT 97
== END 2025-02-19 14:23 | disposition home or self-care (01) | DRG 392 ==
LOC: ER 02-18 01:21 → ICU 02-18 01:53 → CSU 02-18 12:47
PROVIDERS: Admitting Provider Internal Medicine; Emergency Provider Physician Assistant; PCP Electrodiagnostic Medicine; Visit Provider Internal Medicine
DX: K52.9 Noninfective gastroenteritis and colitis, unspecified (principal); E87.6 Hypokalemia; I10 Essential (primary) hypertension; E86.0 Dehydration; E11.9 Type 2 diabetes mellitus without complications; K76.0 Fatty (change of) liver, not elsewhere classified; E78.5 Hyperlipidemia, unspecified; L81.4 Other melanin hyperpigmentation; F17.210 Nicotine dependence, cigarettes, uncomplicated; E26.9 Hyperaldosteronism, unspecified; Z90.49 Acquired absence of other specified parts of digestive tract; Z88.5 Allergy status to narcotic agent; Z79.899 Other long term (current) drug therapy; Z88.0 Allergy status to penicillin; Z88.2 Allergy status to sulfonamides; Z88.8 Allergy status to other drugs, medicaments and biological substances; Z91.018 Allergy to other foods
CPT/HCPCS: 36415; 74177; 80053; 81001; 83690; 83735; 84100; 85025; 87040; 87086; 93005; 96365; 96366; 96367; 96375; 96376; 99291; J0360; J0744; J0780; J2405; J3480; J3490; J7030; J9999

== ENCOUNTER 2025-02-20 11:24 | Emergency (ER) | payer MEDICARE, SELFPAY ==
[2025-02-20 11:25] VITALS: BP 155/96; PULSE 84; RESP 18; TEMP 36.9; O2SAT 97
--- OUTSIDE RECORDS SUMMARY | 2025-02-20 11:40 | XMS_ITS | Data Portability ---
Author Organization [facility], [facility] Address [address] [place] [address] Care Team Providers Care Radioactivity Technician Name Role Phone SUMA VERA Primary Care Provider Unavailabl e Assessment Encounter Date Assessment Date Assessment LastModified by Organization Details LastModified Time 11/07/2023 11/07/2023 Handicap placard paperwork provided to pt today, counseled take to DMV. [email or web address] Not available 11/07/2023 09:27:51 01/29/2025 01/29/2025 Document scribed by Brody Van Cut To Length Operator. I was present during interview and exam. I have reviewed and agree with above documentation. Dr. Suma Vera. A Care Coordination Assessment form was filled out as part of this patient's office visit today. Counseled pt on routine f/u and care for chronic illness in order to maintain her health. Pt tells me today that she has trouble with transportation and getting to [place]. Counseled [facility] and is covered by her health insurance, she just has to arrange her rides in advance. [email or web address] Not available 01/29/2025 13:03:52 Plan of Treatment Reminders Order Date Submit Date Provider Last Modified By Organization Details Last Modified Time Details Appointments RECHECK 2024 08:10A M Suma Vera, DO Not available Not available Not available HOSPITAL F/U 20 2024 09:10A M Suma Vera, DO Not available Not available Not available Lab hemoglobi n A1C/hemog lobin total, QN, blood 2024 025 [email or web address] 7 [facility], [address] [facility], [place], [address], 01/29/2025 13:04:10 microalbu min/creat inine, mass ratio, urine 2024 025 [email or web address] 7 [facility] ([facility]), [address] [facility], [place], [address], 01/29/2025 13:04:10 CMP, serum or plasma 2024 025 [email or web address] 7 [facility], [address] [facility], [facility] 1, [place], [address], 01/29/2025 13:04:10 lipid panel, blood 2024 025 [email or web address] 7 [facility], [address] [facility], [facility] 1, [place], [address], 01/29/2025 13:04:10 CBC 2024 025 [email or web address] 7 [facility], [address] [facility], [facility] 1, [place], [address], 01/29/2025 13:04:10 noninvasi ve colorecta l cancer DNA + occult blood screening , QL, stool 2024 025 [facility] (Cologuard Orders Only), [address], [address], [place], [address], 02/19/2025 08:18:45 vitamin B12, serum 2023 024 [facility], [address] [place] [address] [address], [address] [place], [address], 12/07/2023 05:55:31 retic count, blood 2023 024 [employer] [facility], [address] [place] [address] 248, [address], [place], [address], 10/10/2023 08:33:19 CBC 2023 024 [email or web address] 7 [facility], [address], [address], [place], [address], 10/09/2023 13:25:06 iron + TIBC + ferritin, serum 2023 024 [employer], [address] [facility] [address], [address], [place], [address], 10/10/2023 08:33:18 Referral podiatris t referral - [facility] [email or web address] [facility], [address] [place] [address], [address], 12/13/2023 16:32:21 Procedures None recorded. Surgeries None recorded. Imaging MAMMO, screening , bilateral 2024 [facility]25 [facility], [address] [place] [address], [address], 02/17/2025 15:29:56 MRI, lumbar spine, w/o contrast 2024 025 [place] [address] [facility], [address] [place] [address], [address], 02/18/2025 11:13:31 LDCT, chest, for lung cancer screening 2024 025 [address] [facility], [address] [place] [address], [address], 02/18/2025 11:13:30 XR, lumbosacr al spine, 4 or more view [address] [facility] ([facility]), [address] [place], [address], 01/29/2025 16:08:27 Medication Orders omeprazol e 40 mg capsule,d elayed release 2024 025 [facility], [address] [place] [address], [address], 02/02/2025 17:24:19 ropinirol e 0.5 mg tablet [address], [address], 02/08/2024 17:51:48 famotidin e 40 mg tablet [address], [address], 01/29/2025 09:22:29 cyanocoba fallon (vit B-12) 1,000 mcg/mL injection solution [address], [address], 11/09/2023 17:54:00 tizanidin e 4 mg tablet [address], [address], 12/06/2023 09:26:01 cyanocoba fallon (vit B-12) 1,000 mcg/mL injection solution 2023 024 [email or web address], [address], 10/15/2023 17:55:40 Farxiga 10 mg tablet [address], [address], 10/30/2023 10:57:45 Vitamin D2 1,250 mcg (50,000 unit) capsule 2023 024 [facility], [address] [place] [address], [address], 01/08/2024 09:38:47 pantopraz ole 40 mg tablet,de layed release 2023 024 [facility], [address] [place] [address], [address], 12/05/2023 10:16:19 ferrous sulfate 325 mg (65 mg iron) tablet 2023 024 [facility], [address] [place] [address], [address], 10/10/2023 09:47:22 Patient TargetsNo targets recorded. 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 [facility] Referring Physician: Suma Vera, Family Medicine, Encounter Date: 12/05/2023 Results Created Date Observation Date Name Description Value Unit Range Abnormal Flag Note LastModifiedBy Organization Detail LastModifiedTime 09/26/1909/26/2023 CBC WBC 9.4 x10 4.0-10 .5 Not Available [facility] [address], [place], [address], 09/26/2023 09:23:38 09/26/1909/26/2023 CBC RBC 4.38 x10 3.50-5 .50 Not Available [facility] [address], [place], [address], 09/26/2023 09:23:38 09/26/1909/2509/26/2023 CBC HGB 8.8 g/dL 12.0-1 6.0 low Not Available [facility] [address] [facility] [address] [facility] 1, [place], [address], 09/26/2023 09:23:38 09/26/19 24 09/26/2023 CBC HCT 28.6 % 37.0-4 7.0 low Not Available [facility] [address] [facility] 1, [place], [address], 09/26/2023 09:23:38 09/26/19 24 09/26/2023 CBC MCV 65.4 fL 80.0-9 9.9 low Not Available [facility] [address] [facility] 1, [place], [address], 09/26/2023 09:23:38 09/26/19 24 09/26/2023 CBC MCH 20.1 pg 27.0-3 2.0 low Not Available [facility] [address] [facility] 1, [place], [address], 09/26/2023 09:23:38 09/26/19 24 09/26/2023 CBC MCHC 30.8 g/dL 32.0-3 6.0 low Not Available [facility] [address] [facility] 1, [place], [address], 09/26/2023 09:23:38 09/26/19 24 09/26/2023 CBC RDW 19.0 % 11.5-1 4.5 high Not Available [facility] [address] [facility] 1, [place], [address], 09/26/2023 09:23:38 09/26/19 24 09/26/2023 CBC plt 203.9 x10 140.0- 451.0 Not Available [facility] [address] [facility] 1, [place], [address], 09/26/2023 09:23:38 09/26/19 24 09/26/2023 CBC lymphocytes % 21.1 % 20.0-5 0.0 Not Available [facility] [address] [facility] 1, [place], [address], 09/26/2023 09:23:38 09/26/19 24 09/26/2023 CBC granulcytes % 68.0 % 30.0-7 0.0 Not Available [facility] [address] [facility] 1, [place], [address], 09/26/2023 09:23:38 09/26/19 24 09/26/2023 CBC monocytes % 7.3 % 2.0-10 .0 Not Available [facility] [address] [facility] 1, [place], [address], 09/26/2023 09:23:38 09/26/19 24 09/26/2023 CBC granulcytes# 6.4 x10 Not Chante ilable [facility] [address] [address], [place], [address], 09/26/2023 09:23:38 09/26/19 24 09/26/2023 CBC lymphocytes # 2.0 x10 Not Available [facility] [address] [facility], [place], [address], 09/26/2023 09:23:38 09/26/19 24 09/26/2023 CBC monocytes # 0.7 x10 Not Avai lable [facility] [address] [address], [place], [address], 09/26/2023 09:23:38 09/26/19 24 09/26/2023 CMP (FEMA LE) glucose 291.0 mg/dL 60.0-9 9.0 high Not Available [facility] [address] [facility] 1, [place], [address], 09/26/2023 10:57:22 09/26/19 24 09/26/2023 CMP (FEMA LE) BUN (blood urea nitrogen) 13.0 mg/dL 10.0-2 6.0 Not Available [facility] [address] [facility] 1, [place], [address], 09/26/2023 10:57:22 09/26/19 24 09/26/2023 CMP (FEMA LE) creatinine (serum) 0.8 mg/dL 0.4-1. 5 Not Available [facility] [address] [facility] 1, [place], [address], 09/26/2023 10:57:22 09/26/19 24 09/26/2023 CMP (FEMA LE) BUN/creatini ne ratio 16.25 ratio Not Available [facility] [address] [address], [place], [address], 09/26/2023 10:57:22 09/26/19 24 09/26/2023 CMP (FEMA LE) eGFR calculated 76.[address] [facility] [address] [address], [place], [address], 09/26/2023 10:57:22 09/26/19 24 09/26/2023 CMP (FEMA LE) total protein 7.6 g/dL 6.0-8. 5 Not Available [facility] [address] [address], [place], [address], 09/26/2023 10:57:22 09/26/19 24 09/26/2023 CMP (FEMA LE) total bilirubin 0.7 mg/dL 0.2-1. 3 Not Available [facility] [address] [address], [place], [address], 09/26/2023 10:57:22 09/26/19 24 09/26/2023 CMP (FEMA LE) albumin 4.1 g/dL 3.5-5. 5 Not Available [facility] [address] [facility] 1, [place], [address], 09/26/2023 10:57:22 09/26/19 24 09/26/2023 CMP (FEMA LE) globulin 3.5 calc Not Available [facility] [address] [facility] 1, [place], [address], 09/26/2023 10:57:22 09/26/19 24 09/26/2023 CMP (FEMA LE) AST (SGOT) 31.0 U/L 0.0-46 .0 Not Available [facility] [address] [address], [place], [address], 09/26/2023 10:57:22 09/26/19 24 09/26/2023 CMP (FEMA LE) altv (SGPT) 14.0 U/L 13.0-6 9.0 normal Not Available [facility] [address] [address], [place], [address], 09/26/2023 10:57:22 09/26/19 24 09/26/2023 CMP (FEMA LE) A/G ratio 1.2 ratio Not Available [facility] [address] [address], [place], [address], 09/26/2023 10:57:22 09/26/19 24 09/26/2023 CMP (FEMA LE) ALP phos 156.0 U/L 30.0-1 40.0 abnormal Not Available [facility] [address] [address], [place], [address], 09/26/2023 10:57:22 09/26/19 24 09/26/2023 CMP (FEMA LE) calcium 8.9 mg/dL 8.4-10 .5 Not Available [facility] [address] [facility] 1, [place], [address], 09/26/2023 10:57:22 09/26/19 24 09/26/2023 CMP (FEMA LE) sodium 139.0 mmol/ L 136.0- 145.0 Not Available [facility] [address] [facility] 1, [place], [address], 09/26/2023 10:57:22 09/26/19 24 09/26/2023 CMP (FEMA LE) potassium 3.9 mmol/ L 3.5-5. 1 Not Available [facility] [address] [facility] 1, [place], [address], 09/26/2023 10:57:22 09/26/19 24 09/26/2023 CMP (FEMA LE) chloride 106.0 mmol/ L 98.0-1 10.0 normal Not Available [facility] [address] [facility] 1, [place], [address], 09/26/2023 10:57:22 09/26/19 24 09/26/2023 CMP (FEMA LE) C02 27.0 mmol/ L 22.0-3 1.0 Not Available [facility] [address] [address], [place], [address], 09/26/2023 10:57:22 09/26/19 24 09/26/2023 CMP (FEMA LE) anion gap 6.0 calc Not Available [facility] [address] [address], [place], [address], 09/26/2023 10:57:22 09/26/19 24 09/26/2023 CMP (FEMA LE) osmolality 296.9 calc Not Available [facility] [address] [address], [place], [address], 09/26/2023 10:57:22 09/26/19 24 09/26/2023 LIPID PROFI LE (FEMA LE) cholesterol 107.0 mg/dL 0.0-20 0.0 Not Available [place] [facility] [address] [facility] 1, [place], [address], 09/26/2023 10:57:24 09/26/19 24 09/26/2023 LIPID PROFI LE (FEMA LE) trig 141.0 mg/dL 0.0-15 0.0 Not Available [facility] [address] [facility] 1, [place], [address], 09/26/2023 10:57:24 09/26/19 24 09/26/2023 LIPID PROFI LE (FEMA LE) HDL - direct 36.0 mg/dL >40.0 low Not Available [facility] [address] [facility] 1, [place], [address], 09/26/2023 10:57:24 09/26/19 24 09/26/2023 LIPID PROFI LE (FEMA LE) VLDL - direct 28.2 mg/dL Not Available [facility] [address] [facility] 1, [place], [address], 09/26/2023 10:57:24 09/26/19 24 09/26/2023 LIPID PROFI LE (FEMA LE) LDL - direct 42.8 mg/dL 0.0-13 0.0 Not Available [facility] [address] [facility] 1, [place], [address], 09/26/2023 10:57:24 09/26/19 24 09/27/2023 VITAM IN B12/F OLATE , SERUM PANEL vitamin B12 193 pg/mL 200-11 00 low Not Available [facility] [address] [address], [place], [address], 09/27/2023 12:52:57 09/26/19 24 09/27/2023 VITAM IN B12/F OLATE , SERUM PANEL folate, serum 5.9 NG/mL normal Refer ence Range Low: <3.4 Borde rline : 3.4-5 .4 Ananya l: >5.4 Not Available [facility] [address] [place], [address], 09/27/2023 12:52:57 09/26/19 24 09/27/2023 VITAM IN D,25- OH,TO JENNIFER,I A vitamin D,25-oh,tota l,ia 11 NG/mL 30-100 low Vitam in D Statu s 25-OH Vitam in D: Defic iency : <20 ng/mL Insuf ficie ncy: 20 - 29 ng/mL Optim al: > or = 30 ng/mL For 25-OH Vitam in D testi ng on patie nts on D2-adams pplem entat ion and patie nts for whom quant itati on of D2 and D3 fract ions is requi red, the [employer] Assur eD(TM ) 25-OH VIT D, (D2,D 3), LC/MS /MS is recom asaf d: order code 74609 (iker ents >2yrs ). See Note 1 Note 1 For addit ional infor sandy garcia refer to http: //[facility] janel nina.Deepak Keyesia gnost ics.c om/fa q/FAQ 199 (This link is being provi ded for infor rickey pope/ lynn abebe purpo ses only. ) Not Available [facility] [address] [address] [address], [place], [address], 09/27/2023 11:51:44 09/26/1909/26/2023 TSH, serum or plasm a TSH 5.22 uIU/m L 0.49-3 .82 Not Available [facility] ([facility]) [address] [place] [address], [address], 09/26/2023 09:16:35 09/26/19 24 09/26/2023 HbA1c (hemo globi n A1c), blood HbA1c 10.2 Not Available [facility] ([facility]) [address] [place], [address], 09/26/2023 08:55:36 10/09/19 24 10/09/2023 CBC WBC 9.3 x10 4.0-10 .5 Not Available [facility] [address] [facility] 1, [place], [address], 10/09/2023 11:41:49 10/09/19 24 10/09/2023 CBC RBC 4.08 x10 3.50-5 .50 Not Available [facility] [address] [facility] 1, [place], [address], 10/09/2023 11:41:49 10/09/19 24 10/09/2023 CBC HGB 8.3 g/dL 12.0-1 6.0 low Not Available [facility] [address] [facility] 1, [place], [address], 10/09/2023 11:41:49 10/09/19 24 10/09/2023 CBC HCT 26.5 % 37.0-4 7.0 low Not Available [facility] [address] [facility] 1, [place], [address], 10/09/2023 11:41:49 10/09/19 24 10/09/2023 CBC MCV 65.0 fL 80.0-9 9.9 low Not Available [facility] [address] [facility] [address] [facility] 1, [place], [address], 10/09/2023 11:41:49 10/09/19 24 10/09/2023 CBC MCH 20.3 pg 27.0-3 2.0 low Not Available [facility] [address] [facility] 1, [place], [address], 10/09/2023 11:41:49 10/09/19 24 10/09/2023 CBC MCHC 31.2 g/dL 32.0-3 6.0 low Not Available [facility] [address] [facility] 1, [place], [address], 10/09/2023 11:41:49 10/09/19 24 10/09/2023 CBC RDW 20.0 % 11.5-1 4.5 high Not Available [facility] [address] [facility] 1, [place], [address], 10/09/2023 11:41:49 10/09/19 24 10/09/2023 CBC plt 218.7 x10 140.0- 451.0 Not Available [facility] [address] [facility] 1, [place], [address], 10/09/2023 11:41:49 10/09/19 24 10/09/2023 CBC lymphocytes % 25.7 % 20.0-5 0.0 Not Available [facility] [address] [facility] 1, [place], [address], 10/09/2023 11:41:49 10/09/19 24 10/09/2023 CBC granulcytes % 63.0 % 30.0-7 0.0 Not Available [facility] [address] [facility] 1, [place], [address], 10/09/2023 11:41:49 10/09/19 24 10/09/2023 CBC monocytes % 7.5 % 2.0-10 .0 Not Available [facility] [address] [address], [place], [address], 10/09/2023 11:41:49 10/09/19 24 10/09/2023 CBC granulcytes# 5.9 x10 Not Chante ilable [facility] [address] [facility] 1, [place], [address], 10/09/2023 11:41:49 10/09/19 24 10/09/2023 CBC lymphocytes # 2.4 x10 Not Available [facility] [address] [facility] 1, [place], [address], 10/09/2023 11:41:49 10/09/19 24 10/09/2023 CBC monocytes # 0.7 x10 Not Avai lable [facility] [address] [facility] 1, [place], [address], 10/09/2023 11:41:49 10/09/19 24 10/10/2023 IRON, TIBC AND TYRONE TIN PANEL iron, total 15 mcg/d L 45-160 low Not Available [address], [address], 10/10/2023 08:33:18 10/09/19 24 10/10/2023 IRON, TIBC AND TYRONE TIN PANEL iron binding capacity 543 mcg/d L_(ca lc) 250-45 0 high Not Available [address], [address], 10/10/2023 08:33:18 10/09/19 24 10/10/2023 IRON, TIBC AND TYRONE TIN PANEL % saturation 3 %_(ca lc) 16-45 low Not Available [address], [address], 10/10/2023 08:33:18 10/09/19 24 10/10/2023 IRON, TIBC AND TYRONE TIN PANEL ferritin 5 NG/mL 16-288 low Not Available [address], [address], 10/10/2023 08:33:18 10/09/19 24 10/10/2023 RETIC ULOCY TE COUNT reticulocyte count, automated 2.0 % normal Not Available [address], [address], 10/10/2023 08:33:19 10/09/19 24 10/10/2023 RETIC ULOCY TE COUNT reticulocyte , absolute 22750 cells /uL 11740- [address] high Not Available [address], [address], 10/10/2023 08:33:19 11/16/19 24 11/17/2023 ALBUM IN, RANDO M URINE W/CRE ATINI NE creatinine, random urine 37 mg/dL 20-275 normal Not Available [address], [address], 11/17/2023 13:12:12 11/16/19 24 11/17/2023 ALBUM IN, RANDO M URINE W/CRE ATINI NE albumin, urine 7.7 mg/dL see note: normal Refer ence Range : Refer ence Range Not estab lishe d Not Available [address], [address], 11/17/2023 13:12:12 11/16/19 24 11/17/2023 ALBUM IN, RANDO M URINE W/CRE ATINI NE albumin/crea tinine ratio, random urine 208 mg/g_ creat <30 high The ADA defin es abnor malit ies in album in excre tion as follo ws: Album inuri a Categ ory Resul t (mg/g creat inine ) Ananya l to Mildl y incre ased <30 Moder ately incre ased 30-29 9 Sever luca incre ased > OR = 300 The ADA recom mends that at least two of three speci mens colle cted withi n a 3-6 month perio d be abnor mal befor e consi nitin g a patie nt to be withi n a diagn ostic categ ory. Not Available [address], [address], 11/17/2023 13:12:12 12/05/19 24 12/07/2023 VITAM IN B12 vitamin B12 302 pg/mL 200-11 00 normal Pleas e Note: Altho ugh the refer ence range for vitam in B12 is 200-1 100 pg/mL , it has been repor krissy that betwe en 5 and 10% of patie nts with value s betwe en 200 and 400 pg/mL may exper ience neuro psych iatri c and hemat ologi c abnor malit ies due to occul t B12 defic iency ; less than 1% of patie nts with value s above 400 pg/mL will have sympt oms. Not Available [facility] [address] [place], [address], 12/07/2023 05:55:31 01/30/2001/29/2025 CBC WBC 10.3 x10 4.0-10 .5 Not Available [facility] [address] [address], [place], [address], 01/29/2025 10:17:45 01/30/2001/29/2025 CBC RBC 4.56 x10 3.50-5 .50 Not Available [facility] [address] [address], [place], [address], 01/29/2025 10:17:45 01/30/2001/29/2025 CBC HGB 12.5 g/dL 12.0-1 6.0 Not Available [place] [facility] [address] [facility] 1, [place], [address], 01/29/2025 10:17:45 01/30/2001/29/2025 CBC HCT 38.9 % 37.0-4 7.0 Not Available [facility] [address] [facility] 1, [place], [address], 01/29/2025 10:17:45 01/30/2001/29/2025 CBC MCV 85.4 fL 80.0-9 9.9 Not Available [facility] [address] [facility] 1, [place], [address], 01/29/2025 10:17:45 01/30/2001/29/2025 CBC MCH 27.5 pg 27.0-3 2.0 Not Available [facility] [address] [facility] 1, [place], [address], 01/29/2025 10:17:45 01/30/2001/29/2025 CBC MCHC 32.2 g/dL 32.0-3 6.0 Not Available [facility] [address] [facility] 1, [place], [address], 01/29/2025 10:17:45 01/30/2001/29/2025 CBC RDW 17.4 % 11.5-1 4.5 high Not Available [facility] [address] [facility] 1, [place], [address], 01/29/2025 10:17:45 01/30/2001/29/2025 CBC plt 158.9 x10 140.0- 451.0 Not Available [facility] [address] [facility] 1, [place], [address], 01/29/2025 10:17:45 01/30/2001/29/2025 CBC lymphocytes % 20.7 % 20.0-5 0.0 Not Available [facility] [address] [facility] 1, [place], [address], 01/29/2025 10:17:45 01/30/2001/29/2025 CBC granulcytes % 70.3 % 30.0-7 0.0 high Not Available [facility] [address] [facility] 1, [place], [address], 01/29/2025 10:17:45 01/30/20 25 01/29/2025 CBC monocytes % 5.5 % 2.0-16 .0 Not Available [facility] [address] [facility] 1, [place], [address], 01/29/2025 10:17:45 01/30/20 25 01/29/2025 CBC granulcytes# 7.3 x10 Not Chante ilable [facility] [address] [facility] [address], [place], [address], 01/29/2025 10:17:45 01/30/2001/29/2025 CBC lymphocytes # 2.1 x10 Not Available [facility] [address] [facility] [address], [place], [address], 01/29/2025 10:17:45 01/30/20 25 01/29/2025 CBC monocytes # 0.6 x10 Not Avai lable [facility] [address] [facility] [place], [address], 01/29/2025 10:17:45 01/30/2001/29/2025 HBA1C hemaglobin A1C 9.1 4.2-6. 5 high Not Available [facility] [facility] [address] [facility] [address], [place], [address], 01/29/2025 10:30:58 01/30/2001/29/2025 CMP (FEMA LE) glucose 205.0 mg/dL 60.0-9 9.0 high Not Available [facility] [address] [facility], [place], [address], 01/29/2025 10:34:33 01/30/20 25 01/29/2025 CMP (FEMA LE) BUN (blood urea nitrogen) 17.0 mg/dL 10.0-2 6.0 Not Available [facility] [address] [facility], [place], [address], 01/29/2025 10:34:33 01/30/20 25 01/29/2025 CMP (FEMA LE) creatinine (serum) 1.2 mg/dL 0.4-1. 5 Not Available [facility] [address] [facility], [place], [address], 01/29/2025 10:34:33 01/30/20 25 01/29/2025 CMP (FEMA LE) BUN/creatini ne ratio 14.17 ratio Not Available [facility] [address] [facility], [place], [address], 01/29/2025 10:34:33 01/30/20 25 01/29/2025 CMP (FEMA LE) eGFR calculated 47.8 Not Available [facility] [address] [facility], [place], [address], 01/29/2025 10:34:33 01/30/20 25 01/29/2025 CMP (FEMA LE) total protein 7.6 g/dL 6.0-8. 5 Not Available [facility] [address] [facility], [place], [address], 01/29/2025 10:34:33 01/30/20 25 01/29/2025 CMP (FEMA LE) total bilirubin 0.7 mg/dL 0.2-1. 3 Not Available [facility] [address] [facility], [place], [address], 01/29/2025 10:34:33 01/30/20 25 01/29/2025 CMP (FEMA LE) albumin 4.4 g/dL 3.5-5. 5 Not Available [facility] [address] [facility], [place], [address], 01/29/2025 10:34:33 01/30/20 25 01/29/2025 CMP (FEMA LE) globulin 3.2 calc Not Available [facility] [address] [facility] 1, [place], [address], 01/29/2025 10:34:33 01/30/20 25 01/29/2025 CMP (FEMA LE) AST (SGOT) 28.0 U/L 0.0-46 .0 Not Available [facility] [address] [facility] 1, [place], [address], 01/29/2025 10:34:33 01/30/20 25 01/29/2025 CMP (FEMA LE) altv (SGPT) 17.0 U/L 13.0-6 9.0 normal Not Available [facility] [address] [facility] 1, [place], [address], 01/29/2025 10:34:33 01/30/20 25 01/29/2025 CMP (FEMA LE) A/G ratio 1.4 ratio Not Available [facility] [address] [facility] 1, [place], [address], 01/29/2025 10:34:33 01/30/20 25 01/29/2025 CMP (FEMA LE) ALP phos 112.0 U/L 30.0-1 40.0 normal Not Available [facility] [address] [facility] 1, [place], [address], 01/29/2025 10:34:33 01/30/20 25 01/29/2025 CMP (FEMA LE) calcium 9.4 mg/dL 8.4-10 .5 Not Available [facility] [address] [facility] 1, [place], [address], 01/29/2025 10:34:33 01/30/20 25 01/29/2025 CMP (FEMA LE) sodium 137.0 mmol/ L 136.0- 145.0 Not Available [facility] [place] [facility] [address] [facility] 1, [place], [address], 01/29/2025 10:34:33 01/30/20 25 01/29/2025 CMP (FEMA LE) potassium 3.0 mmol/ L 3.5-5. 1 low Not Available [facility] [facility] [address] [facility] 1, [place], [address], 01/29/2025 10:34:33 01/30/20 25 01/29/2025 CMP (FEMA LE) chloride 101.0 mmol/ L 98.0-1 10.0 normal Not Available [facility] [facility] [address] [facility] 1, [place], [address], 01/29/2025 10:34:33 01/30/20 25 01/29/2025 CMP (FEMA LE) C02 28.0 mmol/ L 22.0-3 1.0 Not Available [facility] [facility] [address] [facility] 1, [place], [address], 01/29/2025 10:34:33 01/30/20 25 01/29/2025 CMP (FEMA LE) anion gap 8.0 calc Not Available [facility] [address] [facility] 1, [place], [address], 01/29/2025 10:34:33 01/30/20 25 01/29/2025 CMP (FEMA LE) osmolality 289.9 calc Not Available [facility] [place] [facility] [address] [facility] 1, [place], [address], 01/29/2025 10:34:33 01/30/20 25 01/29/2025 LIPID PROFI LE (FEMA LE) cholesterol 110.0 mg/dL 0.0-20 0.0 Not Available [facility] [place] [facility] [address] [facility] 1, [place], [address], 01/29/2025 10:36:47 01/30/20 25 01/29/2025 LIPID PROFI LE (FEMA LE) trig 143.0 mg/dL 0.0-15 0.0 Not Available [facility] [address] [facility] 1, [place], [address], 01/29/2025 10:36:47 01/30/20 25 01/29/2025 LIPID PROFI LE (FEMA LE) HDL - direct 39.0 mg/dL >40.0 low Not Available [facility] [address] [facility] 1, [place], [address], 01/29/2025 10:36:47 01/30/20 25 01/29/2025 LIPID PROFI LE (FEMA LE) VLDL - direct 28.6 mg/dL Not Available [facility] [address] [address], [place], [address], 01/29/2025 10:36:47 01/30/20 25 01/29/2025 LIPID PROFI LE (FEMA LE) LDL - direct 42.4 mg/dL 0.0-13 0.0 Not Available [facility] [address] [address], [place], [address], 01/29/2025 10:36:47 01/30/20 25 01/29/2025 XR, lumbo sacra l spine , 4 or more view No observ ation record ed. [facility] [address] [place], [address], 02/03/2025 03:36:52 Result Notes None recorded. 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 4 09:38:09 Lumbar post-dale ctomy syndrome 479808340 Active Nargis Sy [facility] 4 09:38:09 Abdominal pain 47309768 Active Nargis Sy [facility] 4 09:38:09 Degeneratio n of lumbar interverteb ral disc 77404994 Active Nargis Sy [facility] 4 09:38:09 Spondylolis thesis 479905699 Active Nargis Sy [facility] 4 09:38:09 Chronic low back pain 031525094 Active Nargis Sy [facility] 4 09:38:09 Low back pain 411515040 Active Brody Van [facility] 5 09:28:51 Disorder of left sciatic nerve 3699101207736 [address] [facility] 4 09:38:09 Hypertensiv e disorder 73122218 Active Nargis Sy [facility] 4 09:38:09 Lightheaded ness 013504795 Active Nargis Sy [facility] 4 09:38:09 Infection of tooth 575705364 Active Nargis Sy [facility] 4 09:38:09 History of operative procedure on lumbosacral spinal structure 719217464 Active Nargis Sy [facility] 4 09:38:09 Disorder of lumbar disc 718221727 Active Nargis Sy [facility] 4 09:38:09 Diarrhea 82582399 Active Nargis Sy [facility] 4 09:38:09 Colitis 47433172 Active Nargis Sy [facility] 4 09:38:09 Arthritis of hip 97306308 Active Nargis Sy [facility] 4 09:38:09 Urinary tract infectious disease 94343333 Active Nargis Sy [facility] 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 4 09:38:09 Greater trochanteri c pain syndrome 7131290 Active Nargis Sy [facility] 4 09:38:09 Spinal stenosis in cervical region 77571763 Active Nargis Sy [facility] 4 09:38:09 History of cervical spine fusion 2043526424812 Active [address] [facility] 4 09:38:09 Essential hypertensio n 11146761 Active 2022 Suma Vera DO [address] [place] [address], [address] , [facility] 3 12:55:43 Hyperlipide issac 32671312 Active 2022 Brody shannon, [facility] 5 09:13:28 Type 2 diabetes mellitus 72657378 Active 2022 Suma Vera, [address], [address], [facility] 3 12:55:46 Biliary colic 32511108 Active 2022 Suma Vera, [address], [address], [facility] 3 12:55:48 Moderate recurrent major depression 70875854 Active 2022 Suma Vera, [address], [address], [facility] 3 14:31:20 Mass of chest wall 256941313 Active 2022 Suma Vera, [address], [address], [facility] 3 17:38:32 Liver enzymes level above reference range 021287445 Active 2022 Suam Vera, [address], [address], [facility] 3 17:42:40 Chronic abdominal pain 109165139 Active 2023 Suma Vera, [address], [address], [facility] 4 08:57:58 Malaise and fatigue 001238003 Active 2023 Suma Vera, [address], [address], [facility] 4 09:18:16 Steatotic liver disease 714286090 Active 2023 Suma Vera DO [address] [place] [address], [address], [facility] 4 09:18:19 Iron deficiency anemia 63775376 Active 2023 Suma Vera DO [address] [place] [address], [address], [facility] 4 09:44:33 Gastroesoph ageal reflux disease 477120804 Active 2023 Brody shannon [facility], L.L[facility]CTerrell 4 10:55:09 Vitamin B12 deficiency (non anemic) 73304559 Active 2023 Brody shannon [facility] 4 11:00:02 Vitamin D deficiency 32245835 Active 2023 Brody shannon [facility] 4 11:00:02 Cramp in lower limb 916115909 Active 2023 Brody shannon [facility] 4 09:23:42 Spinal cord disease 96392895 Active 2024 Brody shannon [facility] 5 09:28:37 Smoker 01804719 Active 2024 Brody shannon [facility] 5 09:28:42 Screening for malignant neoplasm of colon Active 2024 Brody shannon [facility] 5 09:28:46 Problem Notes None recorded. Procedures Surgical History Date Name Laterality Status Provider Name and Address Organization Details Recorded Time lumbar spinal fusion completed Sayda Edge [facility], L.L.CTerrell 01/17/2024 08:23:27 laminectomy completed Saydaitz Edge [facility], MoniqueCT[facility]rell 01/17/2024 08:23:51 Imaging Results None recorded. Procedure Notes None recorded. Medical Equipment None Reported. Allergies Allergen ID Allergen Name Allergen Category Reaction Reaction Severity Criticality Documentation Date Start Date Code Code System Note Provider Name and Address Organization Details Recorded Time 34100 Substance with sulfonami de structure and antibacte rial mechanism of action (substanc e) medicatio n Not available Not available Not available 12/23/2022 70694 [address] [facility], MoniqueCTerrell 4 15:19:50 51293 Product containin g penicilli n (product) medicatio n hives mild low 12/23/2022 30812 [address] [facility], MoniqueCT[facility]rell 4 15:19:55 07629 lisinopri l medicatio n cough moderate low 01/15/20232022 08070 RxNorm Suma [address], [address] [place] [address], MoniqueCTerrell 3 14:27:12 00794 pantopraz ole medicatio n hives mild low 12/05/[address] [facility], [place]LT[facility]rellCTerrell 4 08:01:54 15955 Zanaflex medicatio n hives Not available [facility] 12/05/2023 00471 6 [facility] 4 09:36:50 21864 morphine medicatio n Not available Not available Not available 12/05/20232022 7052 RxNorm Nargis shannon [facility], LTerrellLTerrellCTerrell 4 09:38:03 49552 codeine medicatio n hives mild low 12/05/20232023 2670 RxNorm [facility] 4 15:20:08 50788 trimethop rim medicatio n Not available Not available Not available 12/05/20232022 17184 RxNorm [facility] 4 09:38:03 38919 onion extract food Not available Not available Not available 12/05/20232022 12128 69 RxNorm [facility] 4 09:38:03 Medications Name Sig Start Date Stop Date Status Note LastModified by Organization Details LastModified Time atorvasta tin 20 mg tablet TAKE 1 TABLET EVERY DAY 2024 active Not Available Not Available Not Avai lable clindamyc in HCl 300 mg capsule TAKE 2 CAPSULES BY MOUTH EVERY 8 HOURS for 10 days 01/29 completed Not Available Not Available Not Available cetirizin e 10 mg tablet TAKE 1 TABLET BY MOUTH EVERY DAY active Not Available Not Available No t Available tizanidin e 4 mg tablet TAKE 1 TABLET BY MOUTH THREE TIMES DAILY NEEDED 12/04 completed Not Available Not Available Not Available lisinopri l 20 mg tablet TAKE 1 TABLET BY MOUTH EVERY DAY 01/15 completed Not Available Not Available Not Available ondansetr on HCl 4 mg tablet TAKE 2 TABLETS BY MOUTH THREE TIMES DAILY NEEDED 10/08 completed Not Available Not Available Not Available famotidin e 40 mg tablet TAKE 1 TABLET EVERY DAY FOR ACID REFLUX 01/29 completed stopped 01/29/25, no longer helping. Changed to Omeprazo le Not Available Not Available Not Available prednison e 20 mg tablet TAKE ONE TABLET BY MOUTH EVERY DAY FOR THREE DAYS 01/15 completed Not Available Not Available Not Available metoprolo l succinate ER 100 mg tablet,ex tended release 24 hr TAKE 1 TABLET EVERY DAY IN THE EVENING 2024 active Not Available Not Available Not Avai lable potassium chloride ER 10 mEq tablet,ex tended release Take 1 tablet every day by oral route for 90 days. 2024 active Not Available Not Available Not Avai lable omeprazol e 40 mg capsule,d elayed release Take 1 capsule every day by oral route in the morning, for acid reflux. 2024 active Not Available Not Available Not Avai lable simvastat in 40 mg tablet TAKE 1 TABLET EVERY EVENING 03/28 completed Not Available Not Available Not Available dicyclomi ne 20 mg tablet TAKE 1 TABLET BY MOUTH THREE TIMES DAILY NEEDED FOR FOR ABDOMINA L pain active Not Available Not Available No t Available baclofen 10 mg tablet TAKE 1 TABLET BY MOUTH UP TO TWICE DAILY NEEDED active Not Available Not Available No t Available pantopraz ole 40 mg tablet,de layed release Take 1 tablet(s ) every day by oral route for 90 days. 12/04 completed Not Available Not Available Not Available cyanocoba fallon (vit B-12) 1,000 mcg/mL injection solution inject 1ml ONCE monthly active Not Available Not Available No t Available ropinirol e 0.5 mg tablet TAKE 2 TABLETS AT BEDTIME FOR RESTLESS LEGS 2024 active Not Available Not Available Not Avai lable glimepiri de 4 mg tablet TAKE 1 TABLET EVERY DAY 2023 active Not Available Not Available Not Avai lable minocycli ne 50 mg capsule TAKE TWO CAPSULES BY MOUTH TWICE DAILY FOR 7 DAYS 01/15 completed Not Available Not Available Not Available gabapenti n 300 mg capsule TAKE 1 CAPSULE THREE TIMES DAILY NEEDED active Not Available Not Available No t Available diclofena c sodium 75 mg tablet,de layed release active Not Available Not Available Not Available metoprolo l succinate ER 25 mg tablet,ex tended release 24 hr TAKE 1 TABLET EVERY DAY 04/02 completed Not Available Not Available Not Available Vitamin D2 1,250 mcg (50,000 unit) capsule take 1 capsule BY MOUTH twice a week active Not Available Not Available No t Available celecoxib 100 mg capsule 01/15 completed Not Available Not Available Not Available ondansetr on 4 mg disintegr ating tablet DISSOLVE ONE TABLET BY MOUTH EVERY 6 HOURS NEEDED FOR NAUSEA AND VOMITING active Not Available Not Available No t Available metformin ER 500 mg tablet,ex tended release 24 hr TAKE 1 TABLET TWICE DAILY 04/02 completed Not Available Not Available Not Available valsartan 160 mg tablet TAKE 1 TABLET EVERY MORNING FOR BLOOD PRESSURE 2024 active Not Available Not Available Not Avai lable ezetimibe 10 mg tablet Take 1 tablet every day by oral route for 90 days. 2024 active Not Available Not Available Not Avai lable duloxetin e 30 mg capsule,d elayed release TAKE 1 CAPSULE EVERY DAY 2024 active Not Available Not Available Not Avai lable baclofen up to two times daily, as needed 01/15 completed DM/sd; Recorded 07/10/19 3:06PM by Bob Cortezic al Summary; Refill Quantity : 45; Tablet; Not Available Not Available Not Available metoprolo l succinate daily 01/15 completed Recorded 03/26/20 11:54AM by Bob Cortezic al Summary; Mail Order Quantity : 90 Tablet; Refill Quantity : 0; Not Available Not Available Not Available metformin two times daily 01/15 completed Recorded 03/26/20 11:51AM by Bob Cortezic al Summary; Mail Order Quantity : 180 Tablet; Refill Quantity : 0; Not Available Not Available Not Available Celebrex two times daily, as needed 01/15 completed Recorded 05/22/20 22 10:01AM by Rachana Ramey, Refill Request; Not Available Not Available Not Available FeroSul 325 mg (65 mg iron) tablet TAKE 1 TABLET BY MOUTH EVERY DAY active Not Available Not Available No t Available Lantus Solostar U-100 Insulin every morning 01/15 completed Recorded 03/26/20 11:50AM by Bob Cortezic al Summary; Mail Order Quantity : 24 Each; Refill Quantity : 0; Not Available Not Available Not Available TRUEplus Lancets 33 gauge two times daily 01/15 completed Recorded 03/26/20 22 11:53AM by Jesusita Ibrahim, Historic al Summary; Mail Order Quantity : 100 Each; Refill Quantity : 0; Not Available Not Available Not Available Farxiga 10 mg tablet Take 1 tablet every day by oral route for 30 days. active Not Available Not Available No t Available True Metrix Glucose Test Strip TEST BLOOD SUGAR TWO TIMES DAILY FOR DIABETES 2024 active Not Available Not Available Not Avai lable True Metrix Glucose Test Strip two times daily 01/15 completed 52672; Recorded 05/24/20 7:40AM by Jesusita Ibrahim (Authori jarett through Suma Vera DO), Refill Request; Mail Order Quantity : 100 Strip; Refill Quantity : 0; Not Available Not Available Not Available FreeStyle Caron 2 Sensor kit 2023 active Not Available Not Available Not Avai lable DropSafe Alcohol Prep Pads USE THREE TIMES DAILY 2024 active Not Available Not Available Not Avai lable Mounjaro 5 mg/0.5 mL subcutane ous pen injector INJECT 5MG SUBCUTAN EOUSLY every week 07/24 completed Not Available Not Available Not Available Mounjaro 2.5 mg/0.5 mL subcutane ous pen injector inject 0.5ml SUBCUTAN EOUSLY every week 07/24 completed Not Available Not Available Not Available Vitals Date Recorded Body height Body mass index (BMI) Body weight Oxygen saturation Oxygen saturation in Arterial blood by Pulse oximetry Heart rate Respiratory rate Systolic And Diastolic Provider Name and Address Organization Details Last Updated DateTime 4 172.72 cm 31.3 kg/m2 93283.0 3 g 95 % 95 % 79 /min 20 /min 110/70 mm[Hg] [facility] 4 10:07:14 Date Recorded Body height Body mass index (BMI) Body weight Oxygen saturation Oxygen saturation in Arterial blood by Pulse oximetry Heart rate Respiratory rate Systolic And Diastolic Provider Name and Address Organization Details Last Updated DateTime 4 172.72 cm 31 kg/m2 88276.8 4 g 97 % 97 % 74 /min 20 /min 140/90 mm[Hg] [facility] 4 09:00:01 Date Recorded Body height Body mass index (BMI) Body weight Oxygen saturation Oxygen saturation in Arterial blood by Pulse oximetry Heart rate Respiratory rate Systolic And Diastolic Provider Name and Address Organization Details Last Updated DateTime 4 172.72 cm 30.2 kg/m2 90352.0 9 g 97 % 97 % 71 /min 20 /min 140/80 mm[Hg] [facility]is [facility] 4 09:44:31 Date Recorded Body weight Body mass index (BMI) Body height Respiratory rate Oxygen saturation Oxygen saturation in Arterial blood by Pulse oximetry Heart rate Systolic And Diastolic Provider Name and Address Organization Details Last Updated DateTime 5 76911.3 2 g 27.6 kg/m2 172.72 cm 18 /min 96 % 96 % 71 /min 134/80 mm[Hg] [facility] L[facility]CT[facility]rell 5 08:49:03 Social History Question Answer Notes LastModified by [facility] Details LastModified Time Tobacco Smoking Status Current Every Day Smoker [facility] 02/14/2023 12:56:54 How Much Tobacco Do You Smoke? 1 PPD Information not available 02/14/2023 Sex: Unknown Functional Status Question Answer Note LastModified by [facility] Details LastModified Time Do you use any illicit or recreational drugs? No Information not available 02/14/2023 Do you or have you ever used any other forms of tobacco or nicotine? Yes [email or web address] Information not available 02/14/2023 What is your level of alcohol consumption? None Information not available 02/14/2023 Mental Status None recorded. Family History Nothing Reported Notes:Alcohol Abuse, Rectal Cancer, Osteoporosis, Migraine Headache, Respiratory Condition, Diabetes Mellitus, Colon Cancer, Arthritis, Kidney disease, Hypertension, Heart disease in female family member before age 65 Medical History Condition Response Coronary Artery Disease N Other Y Gout N Kidney Stones N Blood Diseases N Hyperthyroidism N Breast Cancer N Blood Transfusion N Hypothyroidism N Depression Y COPD N Lung Disease N Defects or Inherited Disease N Developmental or Behavioral Disorders N Breast Problem N Difficulty Swallowing N Anesthesia Complications N Anxiety Disorder N Meniere's disease N Muscle, Joint, or Bone Problems Y Vision or Eye Problems N Arthritis Y Polyps N Infertility N Cancer N Varicosities N Stroke N Endometriosis N Bladder or Kidney Problems N High Cholesterol Y Liver Disease Y Headaches N Fibromyalgia N Kidney Disease N Allergies/Hayfever N Heart Problems N Ear or Hearing Problems N Hospitalizations N Thyroid Problems N GI Problems Y ADD/ADHD N Skin Problems N Eating Disorder N Anemia Y Constipation N Mental Illness N Ovarian Cancer N Diabetes Y Bedwetting N Seizures/Epilepsy N Tuberculosis N Eczema N Diverticulitis N Abuse/Domestic Violence N Asthma N Reflux/GERD Y Hepatitis N Heart Disease N Pulmonary Embolism N Chronic Ear Infections N Pre-Eclampsia N Hypertension Y Chicken Pox N Autism Spectrum Disorder (ASD) N Osteoporosis N Thrombophilias N Gynecological HistoryNo gynecological history recorded. Obstetrics History GPAL:G 0 P 0 0 0 0 Immunizations Vaccine Type Date Status Note Provider Nam e and Address Organization Details Recorded Time Influenza, split virus, trivalent, preservative 0 completed Not Available [facility] 02:39:43 pneumococcal polysaccharide PPV23 0 completed Not Available [facility] 12/23/2022 02:39:43 Past Encounters Encounter ID Performer Location Encounter Start Date Encounter Closed Date Diagnosis/Indication Diagnosis SNOMED-CT Code Diagnosis ICD10 Code Diagnosis IMO Codes Diagnosis Note [id number] Suma Vera DO [facility] ([facility]) [address] [place] [address] 01/15/2023 11:59:11 01/15/2023 14:17:18 Biliary colic 75668927 K80.50 Sphincter of Oddi per ER report. Despite laparoscop ic cholecyste ctomy multiple years ago. ER doc is concerned about spasm of sphincter of Hawk. This is definately possible. will send to GI for further eval, possible need for ERCP.pt to montor stools and symptoms. Essential hypertension 90681186 I10 Stop lisinopril due to cough. Will increase metoprolol from 25 mg to 100 daily. Monitor blood pressure closely. Follow-up 1 month. Hyperlipidemia 16506745 E78.5 Type 2 michael betes mellitus 36720160 E11.69 I reviewed most recent labs with pt as per above. We reconciled medication s. We discussed diet, exercise, weight management . We discussed routine eye care and foot care. Pt to monitor glucose regularly. continue current medication s: meformin, gyimepirid e.will have pt stop her lantus due ot intoleranc e, start mounjaro. counseledr epeat labs today.f/u 1 mt. nursing set up freestyle 2 sample with pt today. Moderate r ecurrent major depression 89760072 F33.1 Stable. Continue duloxetine [id number] Suma Vera DO [facility] ([facility]) [address] [place] [id number] 02/14/2023 12:50:03 02/14/2023 15:25:58 Type 2 diabetes mellitus [id number] E11.69 Patient is tolerating her Mounjaro well. We will continue this and her glimepirid e. She is to stop her metformin. We will plan on repeat labs in 2 months. Essential hypertension 37170625 I10 Stable. Continue metoprolol Hyperlipidemia 96832713 E78.5 stop simvastati n, start atorvastat in. Seasonal a llergic rhinitis 180003869 J30.2 Patient to start daily antihistam ine. Counseled. Mass of chest wall 26309 4000 R22.2 on exam today. consistent with abnormal bony growth of right lower ribs. will get xray today. will likely need CT scan to further evaluate and determine need for biopsy or other workup to determine diagnosis. Liver enzy mes level above reference range 302942804 R74.01 With elevated alk phos. Acute hepatitis panel was negative. Unclear if hepatic origin or bony. Concern for bony origin with bony mass on exam today as a above. We will proceed with ultrasound of the liver and x-ray. Will likely obtain CT scan. I reviewed the CT scan from November 2022 from the emergency department at [facility] . No bony abnormalit ies or liver abnormalit ies were seen on that study however this was prior to symptoms, exam findings, laboratory abnormalit ies. [id number] Suma Vera DO [facility] ([facility]) [address] [place] [address] [phone] 03/22/2023 08:53:47 03/22/2023 18:38:55 [id number] Suma Vera DO [facility] ([facility]) [address] [place] [address] [phone] 04/02/2023 11:40:16 04/02/2023 14:08:03 Biliary colic [id number] K80.50 Sphincter of Oddi per ER report. Despite laparoscop ic cholecyste ctomy multiple years ago. ER doc is concerned about spasm of sphincter of Hawk. This is definately possible. will send to GI for further eval, possible need for ERCP.pt to montor stools and symptoms. Liver enzy mes level above reference range 005882081 R74.01 With elevated alk phos. Acute hepatitis panel was negative. Liver Steatotosi s. No masses.Cou nseled patient. She will work on low-fat diet and exercise. She is on Mounjaro I expect that to also improve her fatty conversion . Mass of chest wall 87625 4000 R22.2 no change on exam. either soft tissue or bony. but Not seen on Xray or CT chest. continues to cause pain. will send to surgeon for further eval. Type 2 michael betes mellitus 05969202 E11.69 patient is tolerating her Mounjaro well. We will continue this and her glimepirid e. We will increase Mounjaro to 5 mg every week. We will repeat labs with appointmen t in 2 months. Non-alcoho lic fatty liver 104453762 K76.0 [id number] Suma Vera DO [facility] ([facility]) [address] [place] [address] [phone] 09/26/2023 08:02:01 09/26/2023 12:08:06 Essential hypertension 69490852 I10 worsening, Continue metoprolol add valsartan q AM. monitor glucose daily Hyperlipidemia 74998413 E78.5 Stable. Will repeat labs today. Continue Atorvastat in. Counseled on diet and exericse. Moderate r ecurrent major depression 21175413 F33.1 Stable. Continue duloxetine Type 2 michael betes mellitus 21969982 E11.69 I reviewed most recent labs with pt as per above. We reconciled medication s. We discussed diet, exercise, weight management . We discussed routine eye care and foot care. Pt to monitor glucose regularly. she stopped mounjaro 05/2023 for concern for GI S/E, but symptoms did not change, she remains off GLP 1.continue current medication s: Glimepirid e.repeat labs today. Chronic ab dominal pain 920710525 R10.9 Worsening over the last 10 months. Patient has made dietary changes and medication changes. Recent ER trip revealed a benign CT scan and benign laboratory workup with benign urinary studies. Symptoms are progressin g severe concern for: Etiology. Will proceed with colonoscop y. I have reviewed and discussed a colonoscop y procedure. We discussed risks vs benefits including risk of infection and bleeding, perforatio n, possible need for surgery, reaction to medication s, and sever injury or . We discussed pt requiring sedation and possible general anesthesia . Pt agrees to proceed with Colonoscop y at [facility]. Preliminar y procedure date will be 10/25/23 Steatotic liver disease [id number] K76.0 With elevated liver enzymes from 2022. February 2023 liver ultrasound confirmed fatty liver. Will monitor liver enzymes every 6 months. Counseled patient on diet exercise weight loss. Malaise and fatigue 2710 59959 R53.83 Unclear etiology. Reviewed labs and other workup from emergency room visit. No cause identified . Will get thyroid and vitamin deficienci es to laboratory per patient request. Obesity 674699556 E66.9 I counseled pt on obesity. We discussed risks and ways to loose weight. Pt will work on diet, exercise. [id number] Suma Vera DO [facility] ([facility]) [address] [place] [address] [phone] 10/09/2023 10:01:59 10/09/2023 12:12:32 Vitamin D deficiency 90653540 E55.9 10/09/23- Reviewed and discussed recent lab, counseled this can effect her cognition, will start twice wkly Vit D at this time. Vitamin B1 2 deficiency (non anemic) 35430445 E53.8 10/09/23- Reviewed and discussed recent lab, counseled this can effect her mood and cognition. Will start B12 injections , pt ok with returning for initial injections , however prefers to continue them at home. Iron defic iency anemia 46641735 D50.9 Reviewed and discussed recent lab, repeat today. Will start Iron daily. Chronic ab dominal pain 747656481 R10.9 Continue with plan for Colonoscop y on 10/25/23. Gastroesop hageal reflux disease 497583028 K21.9 10/09/23- counseled change Omeprazole to Pantoprazo le. Type 2 michael betes mellitus 28896575 E11.69 I reviewed most recent labs with pt as per above. We reconciled medication s. We discussed diet, exercise, weight management . We discussed routine eye care and foot care. Pt to monitor glucose regularly. She stopped Mounjaro 05/2023 for concern for GI S/E, but symptoms did not change, she remains off GLP 1. She has been on Trulicity and Metformin in the past without improvemen t.10/09/23- deteriorat ed, continue Glimepirid e, will start Farxiga today, continue to monitor glucose regularly, counseled on diet. [id number] Suma Vera DO [facility] ([facility]) [address] [place] [address] [phone] 5 12/05/2023 09:19:32 12/05/2023 13:05:20 Sprain of right ankle [id number] S93.401A 12/05/23- Counseled I reviewed ER records, XR right ankle with questionab le avulsion fx, will refer to Podiatry. Placed in walking boot in clinic today. Gastroesop hageal reflux disease 008044141 K21.9 12/05/23- Allergy to Pantoprazo le, hives, itching. Will change to Famotidine . Counseled on diagnosis, treatment options including medication s and possible side effects.- counseled change Omeprazole to Pantoprazo le. Vitamin B1 2 deficiency (non anemic) 81033297 E53.8 12/05/23- lab today, continues B12 injections .11/07/23- tolerating B12 injections , feeling better, more energy. Continue wkly injection, f/u with me just prior to her first monthly B12 injection ( in 5 weeks), lab prior.10/08- Reviewed and discussed recent lab, counseled this can effect her mood and cognition. Will start B12 injections , pt ok with returning for initial injections , however prefers to continue them at home. Restless legs 97717912 G 25.81 12/05/23- rxn to Tizanidine , hives/ itching. Will start Ropinirole . Counseled on diagnosis, treatment options including medication s and possible side effects. [id number] Suma Vera DO [facility] ([facility]) [address] [place] [address] [phone] 5 10/15/2023 16:30:26 10/15/2023 17:34:56 Vitamin B12 deficiency (non anemic) 48788188 E53.8 10/09/23- Reviewed and discussed recent lab, counseled this can effect her mood and cognition. Will start B12 injections , pt ok with returning for initial injections , however prefers to continue them at home. [id number] Suma Vrea DO [facility]) [address] [place] [address] [phone] 5 11/07/2023 08:50:07 11/07/2023 10:43:02 Vitamin D deficiency 53920715 E55.9 11/07/23- continue Vit D, symptoms improving. 10/09/23- Reviewed and discussed recent lab, counseled this can effect her cognition, will start twice wkly Vit D at this time. Vitamin B1 2 deficiency (non anemic) 29918759 E53.8 11/07/23- tolerating B12 injections , feeling better, more energy. Continue wkly injection, f/u with me just prior to her first monthly B12 injection ( in 5 weeks), lab prior.10/08- Reviewed and discussed recent lab, counseled this can effect her mood and cognition. Will start B12 injections , pt ok with returning for initial injections , however prefers to continue them at home. Iron defic iency anemia 31170536 D50.9 Reviewed and discussed recent lab, repeat today. Will start Iron daily. Chronic ab dominal pain 987148879 R10.9 11/07/23- improved. Cramp in lower limb 9529 73152 R25.2 11/07/23- counseled start OTC Magnesium supplement , will change Baclofen to Tizanidine . Counseled on diagnosis, treatment options including medication s and possible side effects. Also start multivitam in daily. [id number] Suma Vera DO [facility] ([facility]) [address] [place] [address] 01/29/2025 08:34:34 02/03/2025 11:44:46 Moderate recurrent major depression 76681493 F33.1 Stable. Continue duloxetine Type 2 michael betes mellitus 86309327 E11.69 I reviewed most recent labs with pt as per above. We reconciled medication s. We discussed diet, exercise, weight management . We discussed routine eye care and foot care. Pt to monitor glucose regularly. She stopped Mounjaro 05/2023 for concern for GI S/E, but symptoms did not change, she remains off GLP 1. She has been on Trulicity and Metformin in the past without improvemen t.10/09/23- deteriorat ed, continue Glimepirid e, will start Farxiga today, continue to monitor glucose regularly, counseled on diet. Essential hypertension 64161163 I10 stable. Gastroesop hageal reflux disease 076941657 K21.9 01/29/25: deteriorat ed, stop Famotidine , start Omeprazole 40mg each am. Hyperlipidemia 36923883 E78.5 [id number] 01/29/25: Counseled ok to stop Atorvastat in, as she is concerned it is causing pain down her legs, this is likely not the issue, if not improving with pain, resume Atorvastat in after two weeks. Low back pain 381809592 M54.50 [id number] 01/29/25: Counseled pain likely not r/t Atorvastat in, however she can stop it for two weeks and see. We will obtain XR today, order MRI. Pt says she does not want any needles in her back, will consider PT. Screening for malignant neoplasm of colon 129675699 Z12.11 [id number] Last Colonoscop y in 2010, normal per patient. Pt likely not healthy enough to do Colonoscop y at this time, will order Cologuard, counseled will need to consider scoping pending Cologuard results. Smoker 10527161 F17.200 [id number] I counseled patient on smoking risks, hazards, complicati ons, and associated illnesses. We discussed smoking cessation options. The patient will work on cutting back but is not ready to quit. We spent 4 minutes discussing this. All questions were addressed. LDCT chest today. Screening mammography 24 853763 Z12.31 [id number] Update Mammo. Spinal cord disease 4852002 G95.9 [id number] H/o L5, S1 fusion in 2013 in [place] . Now with s/sx of Myelopathy to left L5 and right L2,3,4. Will proceed with XR, likely need MRI. Discussed options of either PT, pain management or spinal surgeon pending result. Pt says she doesn't want needles in her back at this time. History of fall 65313682 9 Z91.81 Z99.3 R26.2 Z74.09 R54 Z74.1 [id number] Imaging today to investigat e cause for falls. Health Concerns Section Related Observation LastModified by Organization Detai ls LastModified Time None Recorded Concern Status LastModified by Organization Details LastModified Time None Recorded Advance Directives Directive None Recorded Payers Insurance Date Sequence Insurance Name Policy Number Policy King Covered Member ID King Member ID Guarantor Name 01/29/2025 1 [employer] (MEDICARE REPLACEMENT/A DVANTAGE - PPO) [id number] Anette Liang [id number] Anette Liang 02/16/2025 1 [employer] (MEDICARE REPLACEMENT/A DVANTAGE - PPO) Anette Liang [id number] Anette Liang Notes Date Note Type Note Provider Name and Address Organization Details Recorded Time 10/09/2023 text/html ROS as noted in the HPI Lab f/u.Labs done on 09/26/23: recent labs show she is very anemic, her vit D and b12 levels are low, A1c for diabetes is very high. Pt was advised to come in this week for more discussion on labs and repeat her anemia labs a few days early=nonfasting cbc, iron panel.for now continue with plan for colonoscopy on 10/24 She reports h/o hospitalization in [place] in the 1970's, required blood transfusion, B12 shots, this was after spontaneous miscarriage.She last took B12 shots in 2012, for Polymyalgia Rheumatica, reports after getting them she would walk out of the facility covered in sweat. Not taking any vitamins right now, has Centrum Silver at home.She reports she gets a cold when she takes vitamins and it resolves when she stops them. She continues with abd pain and diarrhea, it has gotten a little better but over the last week had accidents, could not get to the bathroom in time, has been wearing pads She continues with Acid Reflux, has to sit up in the night. Continues Omeprazole. C/o back pain radiating down BLE, weakness in BLE, causing difficulty ambulating. Glucose has been running high lately.She continues Glimepiride. She tried Mounjaro, didn't tolerate, it caused migraine, severe nausea. She has been on Metformin in the past, stopped it because it wasn't doing anything . She has tried Trulicity without improvement in the past. Suma Vera, [address] [place] [address], [phone], [facility], [place] 10/12/2023 16:14:56 10/15/2023 text/html ROS as noted in the HPI B12 Injection Suma Vera DO [address] [place] [address], [phone], [facility], [place] 10/15/2023 17:13:24 11/07/2023 text/html ROS as noted in the HPI pt presents for 1 month f/u. She reports she is feeling great, feels like her old self, hasn't felt this way in years.She has more energy, can get out and go shopping, cook, clean. She reports ble edema after last b12 injection, swelling mostly at night. Also having right leg muscle spasms at night, lasting 2 nights in a row from hip to foot, after taking B12 injection. She doesn't feel her Baclofen is helping anymore.She has one weekly injection left. Taking Vit D and Iron, tolerating well.Not taking a multivitamin. pain to right side resolved and diarrhea resolved wants to get disability parking placard Suma Vera [address] [place] [address], [phone], [facility], [place]. 11/07/2023 09:48:44 12/05/2023 text/html ROS as noted in the HPI Pt presents for ER f/u. Seen in ER 11/29/23 after fall down stairs c/o left hip, lower back, right ankle pain.Imaging unremarkable for fx. Splint placed to RLE, to f/u with Podiatry, Case Management to work on appt. Dc'd home with Dx Right ankle sprain. Rx Diclofenac. No head injury, LOC, or neck pain. She has splint in place, using w/c in clinic, wasn't able to manage with crutches or walker. She says she can walk on the RLE, not far. She does use walker occasionally. She does remove splint to sleep at night.She feels like the splint is digging into her leg causing redness/ bruising.She has been taking Tylenol and Ibuprofen as needed for pain, continues to have pain in the ankle, worse with movement, touch. She reports rxn to both Protonix and Zanaflex, hives, itching. She is not taking anything for GERD now, Omeprazole didn't work for her.She continues to have muscle spasms in BLE, hasn't tried Ropinirole in the past. pt due to have vitamin b12 level repeated Suma Vera, DO [address] [place] [address], [phone], [facility], [place] 12/05/2023 17:28:05 01/29/2025 text/html ROS as noted in the HPI Pt presents for falls.I last saw her 12/05/23, for ankle injury. She c/o there is something wrong with her legs and she can't keep her balance.The last 2 falls she had she landed on her knees, last approx 1 month ago. The ones prior she landed on her buttocks. She does have a walker she uses when at home. She is concerned that she is having s/e from her medication causing her falls.She c/o weakness in the LLE greater than the RLE.She reports numbness to medial right calf and b/l anterior and lateral thighs. She c/o pain to her upper and lower extremities She has h/o L spine surgery in Feb 2013 in [place]. H/o C spine surgery locally per Dr. Bob. MRI L spine last performed 08/03/20:IMPRESSION:No acute abnormality.Multileve l degenerative disc disease with neural foraminal narrowing. Mildleft neural foraminal narrowing at L2-L3, L3-L4, moderate right at L5-S1. She wants her Atorvastatin changed and wants her Cymbalta increased d/t irritability Seen in ER 01/08/25, treated with Clindamycin for 10 days for dental abscess. C/o 29lb unintentional weight loss. She is not UTD on Mammogram, admits she received a letter in the mail regarding scheduling but hasn't done so. Continues smoking, has cut down, was smoking 3 cartons per month, now down to 2 cartons per month, planning to cut back to 1 carton. Denies any abd pain, n/v, persistent diarrhea.She does struggle with constipation, had bright red blood in stool yesterday after straining to have BM. Denies any black/ bloody/ tarry stools.Last Colonoscopy in 2010, normal per patient. Monitoring glucose, 150-200's, depending how much sleep she is getting.Continues Farxiga. She is fasting for lab today. Also c/o dizziness, often feels like everything is spinning. Suma Vera, DO [address] [place] [address], [phone], [facility], [place] 02/03/2025 02:30:43 OBGyn Episode No OBEpisode recorded.
--- OUTSIDE RECORDS SUMMARY | 2025-02-20 11:40 | XMS_ITS | Clinical Summary ---
Author Organization [facility] Address [address] 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
--- OUTSIDE RECORDS SUMMARY | 2025-02-20 11:40 | XMS_ITS | Clinical Summary ---
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
[2025-02-20 12:33] LABS: Hematocrit 37.0 % (36-47); Hemoglobin 11.90 g/dL (11.27-16.99); Mean Corpuscular HGB Conc 32.2 g/dL (30-55); Mean Corpuscular Hemoglobin 27.4 pg (27-33); Mean Corpuscular Volume 85.3 fl (85-98); Nucleated Red Blood Cells % 0 %; Platelet Count 151 10^3/cmm (157-399); Red Blood Count 4.34 10^6/uL (3.85-5.65); White Blood Count 11.00 10^3/uL (3.29-11.43)
[2025-02-20 12:43] VITALS: BP 198/86; PULSE 83; O2SAT 96
[2025-02-20 12:48] LABS: Alanine Aminotransferase 14 U/L (0-33); Albumin Level 3.8 g/dL (3.5-5.2); Alkaline Phosphatase 115 U/L (35-105); Anion Gap 18.0 (5-19); Aspartate Amino Transferase 28 U/L (0-32); Blood Urea Nitrogen 11 mg/dL (8-23); Calcium 9.0 mg/dL (8.5-10.5); Carbon Dioxide 23 mmol/L (22-29); Chloride 97 mmol/L (98-107); Globulin 3.8 g/dL (1.3-4.6); Glucose 237 mg/dL (65-115); Magnesium 1.9 mg/dL (1.7-2.3); Osmolality Calculated 287 mOsm/kg (285-295); Potassium 3.0 mmol/L (3.5-5.1); Sodium 135 mmol/L (136-145); Total Protein 7.6 g/dL (6.6-8.7)
[2025-02-20 13:00] LABS: Glucose Urine UA 2+ (Normal); Nitrate Urine Negative (Negative); Specific Gravity, Urine 1.013 (1.005-1.030)
[2025-02-20 13:05] LABS: Add Urine Microscopic? YES
--- NOTE | 2025-02-20 13:07 | W.ED.GENADLT ---
HPI - General Adult General: Chief complaint: General Medical Stated complaint: yovani, high bp Time Seen by Provider: 02/20/25 12:42 Source: patient Mode of arrival: ambulatory Limitations: no limitations History of Present Illness: Patient is a 64-year-old female here in the emergency department stating she has had some mild diarrhea and noticed her blood pressure was high. She was just released from the hospital yesterday. She was admitted for acute chronic hypokalemia, hypertension, colitis. She did have adjustments to her blood pressure medications and is now taking spironolactone, hydralazine, amlodipine. She is on antibiotics for her colitis. She is not complaining of abdominal pain or bloody stools. She has not had fevers. Patient states she has a headache upon arrival but states she has headaches daily and takes [id number] headache medication. She states the headache currently feels like her headaches that she gets daily. Onset (ago): hour(s) Severity: mild Relieving factors: none Exacerbating factors: none Associated symptoms: Reports headache(s); Deny chest pain, confusion, dyspnea, malaise, nausea, rash, palpitations, syncope or vomiting Treatments prior to arrival: none Related Data Home Medications ?Medication ?Instructions ?Recorded ?Confirmed glimepiride 4 mg tablet 4 mg PO QPM 09/09/19 02/20/25 acetaminophen 500 mg tablet 1,500 mg PO DAILY PRN Pain 08/03/20 02/20/25 (Tylenol Extra Strength) omeprazole 40 mg capsule,delayed 40 mg PO DAILY@20 08/03/20 02/20/25 release duloxetine 30 mg capsule,delayed 30 mg PO BEDTIME 02/18/25 02/20/25 release ezetimibe 10 mg tablet 10 mg PO DAILY 02/18/25 02/20/25 famotidine 40 mg tablet 40 mg PO DAILY 02/18/25 02/20/25 metoprolol succinate 100 mg 100 mg PO DAILY 02/18/25 02/20/25 tablet,extended release 24 hr ropinirole 0.5 mg tablet 0.5 mg PO BID 02/18/25 02/20/25 Previous Rx's ?Medication ?Instructions ?Recorded amlodipine 5 mg tablet 5 mg PO DAILY #30 tabs 02/19/25 aspirin 81 mg tablet,delayed 81 mg PO DAILY #30 tabs 02/19/25 release ciprofloxacin HCl 500 mg tablet 500 mg PO BID@0900,2100 #6 tabs 02/19/25 docusate sodium 100 mg capsule 100 mg PO BID #60 caps 02/19/25 hydralazine 50 mg tablet 100 mg (2 x 50 mg) PO BID #120 tabs 02/19/25 metronidazole 500 mg tablet 500 mg PO TID #15 tabs 02/19/25 spironolactone 25 mg tablet 25 mg PO BID #60 tabs 02/19/25 valsartan 160 mg tablet 160 mg PO BID #60 tabs 02/19/25 Allergies Allergy/AdvReac Type Severity Reaction Status Date / Time atorvastatin (From Lipitor) Allergy Unknown Verified 02/17/25 19:07 codeine Allergy hives Verified 02/17/25 19:06 morphine Allergy rash Verified 02/17/25 19:06 pantoprazole (From Protonix) Allergy ALGY-Redness Verified 02/17/25 19:06 of Skin Penicillins Allergy boils Verified 02/17/25 19:06 sulfamethoxazole (From Allergy disoriented Verified 02/17/25 19:06 Bactrim) trimethoprim (From Bactrim) Allergy disoriented Verified 02/17/25 19:06 onion AdvReac Intermediate throat Verified 02/17/25 19:06 yvrose Review of Systems Const: Reports: fatigue; Denies: fever(s), chills, body aches or malaise Eyes: Denies: change in vision or blurry vision Card: Denies: chest pain, palpitations, irregular heart rhythm, lightheadedness, syncope or dyspnea on exertion Resp: Denies: dyspnea, productive cough or pain on inspiration GI: Reports: diarrhea and GI cramping; Denies: abdominal pain, nausea, vomiting, heartburn, hematochezia or melena : Denies: flank pain, difficulty voiding, dysuria, urinary frequency or urinary urgency Musc: Denies: neck pain, back pain, extremity pain, extremity swelling or joint pain Skin/Breast: Denies: rash Neuro: Reports: headache(s); Denies: numbness in extremities, weakness in extremities, sensory changes, difficulty walking, dizziness or confusion PFS ED PFSH: Medical History Diabetic retinopathy Neuropathy Dyslipidemia Hypertension Diabetes mellitus Lumbar disc disease Spondylolisthesis of cervical region Stenosis of cervical spine with myelopathy Cervical disc disorder with myelopathy of mid-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 Lumbar post-laminectomy syndrome Surgical History History of cholecystectomy 1999 History of colonoscopy 2010 History of lumbosacral spine surgery 2012 L5-S1 decompression History of fusion of cervical spine (06/05/16) C5-C6, C6-C7 ACDFF Family History Grandmother Cancer Diabetes Heart disease Mother Osteoarthritis Social History Smoking and tobacco/nicotine status: never used tobacco/nicotine Alcohol intake: never Substance/Drug Use: never Household members: children Marital status: / Current occupational status: disabled Physical Exam Const: COMMON NORMALS: no acute distress, average body habitus, patient oriented x3, no limitations, healthy appearing, alert and well nourished GENERAL APPEARANCE: cooperative ORIENTATION/CONSCIOUSNESS: Yes awake, Yes oriented to person, Yes oriented to place and Yes oriented to time HENMT: COMMON NORMALS: normocephalic and atraumatic HEAD & SCALP: normal to inspection, normocephalic and atraumatic Neck/C-Spine: COMMON NORMALS: full ROM, no lymphadenopathy, supple and no meningeal signs Chest: COMMONS NORMALS: normal inspection of the chest Resp: COMMON NORMALS: normal respiratory effort and clear to auscultation bilaterally AUSCULTATION: clear to auscultation bilaterally Cardio: COMMON NORMALS: regular rate and regular rhythm RATE: regular rate RHYTHM: regular rhythm GI: COMMON NORMALS: Normal to inspection, nondistended, normoactive bowel sounds present, Soft to palpation, non-tender, No hepatosplenomegaly present and no masses INSPECTION: Yes normal to inspection PALPATION: Yes Soft to palpation and Yes No hepatosplenomegaly present : COMMON NORMALS: Yes no CVA tenderness BLADDER/KIDNEY EXAM: Yes no CVA tenderness Back/Pelvis: COMMON NORMALS: no CVA tenderness and thoracic and lumbar spine normal to inspection Extremity: COMMON NORMALS: normal to inspection, capillary refill normal, no clubbing, cyanosis or edema, no calf tenderness and no pedal edema GENERAL: Yes normal exam except as noted Neuro: COMMON NORMALS: patient oriented x3, moves all extremities, no focal motor deficits and no sensory deficits noted SENSORIUM/ORIENTATION: Yes alert, Yes oriented to person, Yes oriented to place and Yes oriented to time MENINGEAL SIGNS: Yes no meningeal signs Skin: COMMON NORMALS: no rashes or lesions noted GENERAL SKIN EXAM: no rashes or lesions noted Course Vital Signs: Vital signs: Vital Signs Temperature 98.4 F 02/20/25 11:25 Pulse Rate 78 02/20/25 14:00 Respiratory Rate 18 02/20/25 11:25 Blood Pressure 163/75 02/20/25 14:00 Pulse Oximetry 97 02/20/25 14:00 Oxygen Delivery Me thod Room Air 02/20/25 14:00 MDM - General Adult Medical Decision Making Patient is a 64-year-old female here for elevated blood pressure and diarrhea. She was recently diagnosed with colitis and is on antibiotics for this. She is not complaining of abdominal pain or fevers. Recommend she continue her antibiotics. Blood pressures here have been somewhat elevated. She did just recently have adjustments to her blood pressure medications when she was released from the hospital yesterday. Recommend she continue these and keep a blood pressure log and follow-up with primary care so they can adjust as needed. At time of my discharge, blood pressures were 160s/70s which family states is close to her baseline. She complained of a chronic headache-states she gets headaches daily. States she will take her normal headache medication when she gets home. States there was nothing different about today's headache. Her blood work overall is unremarkable when compared to labs at discharge. Potassium is 3.0. She does have oral potassium at home she can take for the next few days. She does have chronic hypokalemia with a baseline potassium of around 3.3. UA with chronic hematuria. Had a urine culture while in the hospital that was unremarkable. Patient will be allowed discharge with recommendations to follow-up with primary care next week. Return to ED precautions discussed. Medical Records I reviewed the patient's medical records. Lab Data I reviewed the patient's lab results. 02/20/25 12:26 02/20/25 12:26 Laboratory Results WBC 11.00 10^3/uL (3.29-11.43) 02/20/25 12: RBC 4.34 10^6/uL (3.85-5.65) 02/20/25 12: Hgb 11.90 g/dL (11.27-16.99) 02/20/25 12: Hct 37.0 % (36-47) 02/20/25 12: MCV 85.3 fl (85-98) 02/20/25 12: MCH 27.4 pg (27-33) 02/20/25 12: MCHC 32.2 g/dL (30-55) 02/20/25 12: RDW 17.2 % (12.1-15.1) H 02/20/25 12: Plt Count 151 10^3/cmm (157-399) L 02/20/25 12: MPV 11.3 fL (7.4-10.4) H 02/20/25 12: Neut % (Auto) 79.9 % 02/20/25 12: Lymph % (Auto) 12.1 % 02/20/25 12: Maries % (Auto) 5.8 % 02/20/25 12: Eos % (Auto) 1.2 % 02/20/25 12: Baso % (Auto) 0.5 % 02/20/25 12: Neut # (Auto) 8.80 10^3/uL (1.8-7.7) H 02/20/25 12: Lymph # (Auto) 1.3 10^3/uL (0.8-4.8) 02/20/25 12: Maries # (Auto) 0.6 10^3/uL (0.2-0.9) 02/20/25 12: Eos # (Auto) 0.1 10^3/uL (0.0-0.8) 02/20/25 12: Baso # (Auto) 0.1 10^3/uL (0.0-0.1) 02/20/25 12: Nucleated RBC % (auto) 0 % 02/20/25 12: Nucleated RBCs # 0.0 /100WBC 02/20/25 12: Sodium 135 mmol/L (136-145) L 02/20/25 12:26 Potassium 3.0 mmol/L (3.5-5.1) L 02/20/25 12:26 Chloride 97 mmol/L (98-107) L 02/20/25 12:26 Carbon Dioxide 23 mmol/L (22-29) 02/20/25 12:26 Anion Gap 18.0 (5-19) 02/20/25 12:26 BUN 11 mg/dL (8-23) 02/20/25 12: Creatinine 1.1 mg/dL (0.5-0.9) H 02/20/25 12:26 GFR Calculation 49.7 mL/min (90-130) L 02/20/25 12: Glucose 237 mg/dL (65-115) H 02/20/25 12:26 Calculated Osmolality 287 mOsm/kg (285-295) 02/20/25 12: Calcium 9.0 mg/dL (8.5-10.5) 02/20/25 12: Magnesium 1.9 mg/dL (1.7-2.3) 02/20/25 12:26 Total Bilirubin 0.4 mg/dL (0.15-1.2) 02/20/25 12:26 AST 28 U/L (0-32) 02/20/25 12: ALT 14 U/L (0-33) 02/20/25 12:26 Alkaline Phosphatase 115 U/L (35-105) H 02/20/25 12:26 Total Protein 7.6 g/dL (6.6-8.7) 02/20/25 12: Albumin 3.8 g/dL (3.5-5.2) 02/20/25 12: Globulin 3.8 g/dL (1.3-4.6) 02/20/25 12:26 Urine Color Yellow (Yellow) 02/20/25 12:54 Urine Appearance Clear (CLEAR) 02/20/25 12:54 Urine pH 6.0 (5-7) 02/20/25 12:54 Ur Specific [place] 1.013 (1.005-1.030) 02/20/25 12:54 Urine Protein 2+ (Negative) A 02/20/25 12:54 Urine Glucose (UA) 2+ (Normal) H 02/20/25 12:54 Urine Ketones Trace (Negative) 02/20/25 12:54 Urine Blood Trace (Negative) A 02/20/25 12:54 Urine Nitrate Negative (Negative) 02/20/25 12:54 Urine Bilirubin Negative (Negative) 02/20/25 12:54 Urine Urobilinogen 0.2 mg/dL (Negative) 02/20/25 12:54 Ur Leukocyte Esterase Negative (Negative) 02/20/25 12:54 Urine RBC 21-50 /hpf (0-2) H 02/20/25 12:54 Urine WBC 6-10 /hpf (0-5) 02/20/25 12:54 Ur Squamous Epith Cells 6-10 /hpf (0-5) 02/20/25 12:54 Amorphous Sediment Not Reportable 02/20/25 12:54 Urine Bacteria 1+ /hpf (NONE) H 02/20/25 12:54 Hyaline Casts 0.81 /lpf 02/20/25 12:54 No radiology studies performed this visit Discharge Plan Discharge Patient Disposition: Home Clinical Impression: Hypertension, Chronic headaches, Chronic hypokalemia Condition: Stable Prescriptions: No Action glimepiride 4 mg tablet 4 mg PO QPM omeprazole 40 mg capsule,delayed release(DR/EC) 40 mg PO DAILY@20 acetaminophen [Tylenol Extra Strength] 500 mg Tablet 1,500 mg PO DAILY PRN (Reason: Pain) famotidine 40 mg tablet 40 mg PO DAILY metoprolol succinate 100 mg tablet extended release 24 hr 100 mg PO DAILY ropinirole 0.5 mg tablet 0.5 mg PO BID ezetimibe 10 mg tablet 10 mg PO DAILY duloxetine 30 mg capsule,delayed release(DR/EC) 30 mg PO BEDTIME amlodipine 5 mg Tablet 5 mg PO DAILY Qty: 30 0RF ciprofloxacin HCl 500 mg Tablet 500 mg PO BID@0900,2100 Qty: 6 0RF aspirin 81 mg Tablet,Delayed Release (Dr/Ec) 81 mg PO DAILY Qty: 30 0RF spironolactone 25 mg Tablet 25 mg PO BID Qty: 60 0RF docusate sodium 100 mg Capsule 100 mg PO BID Qty: 60 0RF hydralazine 50 mg Tablet 100 mg PO BID Qty: 120 0RF Rx Instructions: if SBP below 120 take 50 mg bid or skip valsartan 160 mg tablet 160 mg PO BID Qty: 60 0RF metronidazole 500 mg tablet 500 mg PO TID Qty: 15 0RF Discharge Orders: Discharge ED (Routine); Ordered 02/20/25 Ordered By: Aleida Ayala Referrals: Italo Colindres DO [Primary Care Provider, Family Practice] Patient Instructions: Patient Portal & [facility]yer Instructions Activity Restrictions/Additional Instructions: Continue to take the medications that you are discharged with from the hospital yesterday. Keep a blood pressure log-monitoring twice daily-and follow-up with primary care so they can adjust these medications based on the log. As we discussed, you can take 20 mEq of potassium daily over the next 3 to 5 days. Print Language: Algerian Coding Level of Care Code ED Chemical Test Engineer for Teresa Ashby
[2025-02-20 13:15] VITALS: BP 177/86; PULSE 86; O2SAT 96
[2025-02-20] MEDS: hyDRALAzine 20 mg/mL INJ 1 mL 10 MG IVP (13:15)
[2025-02-20] MEDS: potassium chloride oral liq 20 mEq/15 mL UDC 40 MEQ PO (13:16)
--- NOTE | 2025-02-20 13:22 | PC.PHAR ---
Potassium dc'd at discharge 02/19/25. Atorvastatin replaced with Ezetimibe 10mg.
[2025-02-20] MEDS: labetalol 5 mg/mL SDV 20mL 10 MG IVP (13:48)
[2025-02-20 14:00] VITALS: BP 163/75; PULSE 78; O2SAT 97
[2025-02-20 14:29] VITALS: BP 167/81; PULSE 80; O2SAT 93
== END 2025-02-20 14:31 | disposition home or self-care (01) ==
PROVIDERS: Emergency Provider Physician Assistant; PCP Electrodiagnostic Medicine
DX: I10 Essential (primary) hypertension (principal); R51.9 Headache, unspecified; E87.6 Hypokalemia; Z79.82 Long term (current) use of aspirin; E78.5 Hyperlipidemia, unspecified; E11.40 Type 2 diabetes mellitus with diabetic neuropathy, unspecified
CPT/HCPCS: 36415; 80053; 81001; 83735; 85025; 96374; 96375; 99284; J0360; J3490; J9999

== ENCOUNTER 2025-03-07 12:22 | Emergency (ER) | payer MEDICARE, SELFPAY ==
[2025-03-07 12:23] VITALS: BP 147/84; PULSE 108; RESP 18; TEMP 36.6; O2SAT 98
--- OUTSIDE RECORDS SUMMARY | 2025-03-07 12:27 | XMS_ITS | Clinical Summary ---
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
--- OUTSIDE RECORDS SUMMARY | 2025-03-07 12:27 | XMS_ITS | Clinical Summary ---
Author Organization [facility] Address [address] 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
--- NOTE | 2025-03-07 12:46 | XRR_ITS ---
PROCEDURE INFORMATION: Exam: XR Left Ribs Exam date and time: 03/07/2025 12:59 PM Age: 64 years old Clinical indication: Chest wall pain; Left; Additional info: Left ribs pain TECHNIQUE: Imaging protocol: Radiologic exam of the left ribs. Views: 2 views. COMPARISON: CT chest w con* [id number] 03/29/2023 8:28 AM FINDINGS: Bones/joints: Post ACDF of the lower cervical spine. 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 There are mild degenerative changes of the glenohumeral joint. The thoracic spine demonstrates mild degenerative changes at multiple levels. Heart/Mediastinum: The heart is enlarged. Vasculature: There are aortic arch calcifications. Soft tissues: Normal. XR/XR ribs LT 2V* [id number] IMPRESSION: No acute fracture or dislocation.
--- NOTE | 2025-03-07 12:54 | W.ED.ABDPA2 ---
Documented by User: SADIA Lara 03/07/25 14:46 HPI - Abdominal Pain General: Chief Complaint: Abdominal Pain Stated Complaint: lt swollen/tender Time Seen by Provider: 03/07/25 12:36 Source: patient Mode of arrival: ambulatory Limitations: no limitations History of Present Illness: Patient is a 64-year-old female presenting to the emergency department complaining of left upper abdomen pain and reports of swelling for the past couple of days. Patient has been seen here in the emergency department a few times over the past month, notably was admitted to the hospital on 02/17 for acute hypokalemia associated to GI loss from diarrhea. She was in the hospital at that time discharge and antibiotics for the colitis and she has since finished these. She was having issues with diarrhea from antibiotics but states that this has improved, and now states that the pain and swelling seemingly began after coughing fits. She is not having fever or nausea/vomiting, states the pain to her left upper abdomen/left ribs is exacerbated by deep breathing, coughing, or laughing. Blood pressure is much more controlled at this time as previously had presented with systolic readings greater than 220, currently 147/84 with triage. She states that holding her left upper abdomen/ribs makes the pain better, along with rest. Has been taking ibuprofen with no relief. She has no other symptoms reported this time, no chest pain or shortness of breath. MD elicited complaint: abdominal pain Pertinent past history: other (colitis) Onset (ago): day(s) Severity: severe Quality: stabbing and sharp Radiation: none Relieving factors: other (holding abd/ribs) Associated Symptoms: Reports other (abd swelling); Denies change in stool character, chills, constipation, diarrhea, dysuria, fever(s), hematochezia, nausea and vomiting Treatments prior to arrival: NSAIDs Related Data Home Medications ?Medication ?Instructions ?Recorded ?Confirmed glimepiride 4 mg tablet 4 mg PO QPM 09/09/19 02/20/25 acetaminophen 500 mg tablet 1,500 mg PO DAILY PRN Pain 08/03/20 02/20/25 (Tylenol Extra Strength) omeprazole 40 mg capsule,delayed 40 mg PO DAILY@20 08/03/20 02/20/25 release duloxetine 30 mg capsule,delayed 30 mg PO BEDTIME 02/18/25 02/20/25 release ezetimibe 10 mg tablet 10 mg PO DAILY 02/18/25 02/20/25 famotidine 40 mg tablet 40 mg PO DAILY 02/18/25 02/20/25 metoprolol succinate 100 mg 100 mg PO DAILY 02/18/25 02/20/25 tablet,extended release 24 hr ropinirole 0.5 mg tablet 0.5 mg PO BID 02/18/25 02/20/25 Previous Rx's ?Medication ?Instructions ?Recorded amlodipine 5 mg tablet 5 mg PO DAILY #30 tabs 02/19/25 aspirin 81 mg tablet,delayed 81 mg PO DAILY #30 tabs 02/19/25 release ciprofloxacin HCl 500 mg tablet 500 mg PO BID@0900,2100 #6 tabs 02/19/25 docusate sodium 100 mg capsule 100 mg PO BID #60 caps 02/19/25 hydralazine 50 mg tablet 100 mg (2 x 50 mg) PO BID #120 tabs 02/19/25 metronidazole 500 mg tablet 500 mg PO TID #15 tabs 02/19/25 spironolactone 25 mg tablet 25 mg PO BID #60 tabs 02/19/25 valsartan 160 mg tablet 160 mg PO BID #60 tabs 02/19/25 Allergies Allergy/AdvReac Type Severity Reaction Status Date / Time atorvastatin (From Lipitor) Allergy Unknown Verified 02/17/25 19:07 codeine Allergy hives Verified 02/17/25 19:06 morphine Allergy rash Verified 02/17/25 19:06 pantoprazole (From Protonix) Allergy ALGY-Redness Verified 02/17/25 19:06 of Skin Penicillins Allergy boils Verified 02/17/25 19:06 sulfamethoxazole (From Allergy disoriented Verified 02/17/25 19:06 Bactrim) trimethoprim (From Bactrim) Allergy disoriented Verified 02/17/25 19:06 onion AdvReac Intermediate throat Verified 02/17/25 19:06 yvrose Review of Systems General: Reports: 10 or more systems reviewed and unremarkable except in HPI and below Const: Denies: fever(s), chills, change in appetite, change in weight or diaphoresis ENMT: Denies: throat pain or hoarseness Card: Denies: chest pain, palpitations or lightheadedness Resp: Reports: non-productive cough; Denies: dyspnea, productive cough or wheezing GI: Reports: abdominal pain and other (abd swelling); Denies: nausea, vomiting, diarrhea, constipation, change in stool character or hematochezia : Denies: flank pain, difficulty voiding, dysuria, urinary frequency or urinary urgency Musc: Reports: other (left ribs pain); Denies: neck pain or back pain Skin/Breast: Denies: rash or new lesions Neuro: Denies: headache(s) or dizziness PFSH ED PFSH: Medical History Diabetic retinopathy Neuropathy Dyslipidemia Hypertension Diabetes mellitus Lumbar disc disease Spondylolisthesis of cervical region Stenosis of cervical spine with myelopathy Cervical disc disorder with myelopathy of mid-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 Lumbar post-laminectomy syndrome Surgical History History of cholecystectomy 1999 History of colonoscopy 2010 History of lumbosacral spine surgery 2012 L5-S1 decompression History of fusion of cervical spine (06/05/16) C5-C6, C6-C7 ACDFF Family History Grandmother Cancer Diabetes Heart disease Mother Osteoarthritis Social History Smoking and tobacco/nicotine status: never used tobacco/nicotine Alcohol intake: never Substance/Drug Use: never Household members: children Marital status: / Current occupational status: disabled Physical Exam Const: COMMON NORMALS: no acute distress, average body habitus, patient oriented x3, no limitations, healthy appearing, alert and well nourished GENERAL APPEARANCE: cooperative and comfortable ORIENTATION/CONSCIOUSNESS: Yes awake Neck/C-Spine: COMMON NORMALS: full ROM, supple and no meningeal signs Chest: OTHER: Easily reproducible tenderness to palpation to inferior left lower ribs with no step-off deformity Resp: COMMON NORMALS: normal respiratory effort, No retractions, No use of accessory muscles and clear to auscultation bilaterally AUSCULTATION: clear to auscultation bilaterally, no crackles, no rales, no rhonchi and no wheezes Cardio: COMMON NORMALS: regular rate, regular rhythm, No gallops present (Cardio), No clicks present (Cardio), No murmurs present (Cardio), No rub (Cardio) and Peripheral pulses 2+ throughout RATE: regular rate RHYTHM: regular rhythm PERIPHERAL PULSES: Peripheral pulses 2+ throughout GI: COMMON NORMALS: Normal to inspection, nondistended, normoactive bowel sounds present, Soft to palpation, non-tender, No hepatosplenomegaly present and no masses AUSCULTATION: Yes normoactive bowel sounds PALPATION: Yes Soft to palpation, No Guarding due to palpation present (GI), No Rigid due to palpation and Yes No hepatosplenomegaly present RECTAL EXAM: deferred OTHER: No appreciable abdominal distention or swelling, no tenderness to the abdomen : COMMON NORMALS: Yes no CVA tenderness BLADDER/KIDNEY EXAM: Yes no CVA tenderness Back/Pelvis: COMMON NORMALS: no CVA tenderness Extremity: COMMON NORMALS: normal to inspection and full ROM Neuro: COMMON NORMALS: patient oriented x3, moves all extremities, no focal motor deficits and no sensory deficits noted SENSORIUM/ORIENTATION: Yes alert MENINGEAL SIGNS: Yes no meningeal signs Psych: COMMON NORMALS: mental status grossly normal, cooperative and speech normal SPEECH: Yes normal speech Skin: COMMON NORMALS: no rashes or lesions noted GENERAL SKIN EXAM: no rashes or lesions noted Course Vital Signs: Vital signs: Vital Signs Temperature 97.8 F 03/07/25 12:23 Pulse Rate 108 H 03/07/25 12:23 Respiratory Rate 18 03/07/25 12:23 Blood Pressure 147/84 03/07/25 12:23 Pulse Oximetry 98 03/07/25 12:23 Oxygen Delivery Me thod Room Air 03/07/25 12:23 MDM - Abdominal Pain Medical Decision Making Patient presented complaining of left upper abdomen/left rib pain and reports of abdominal swelling for the past couple days. She has been seen here in the emergency department multiple times over the past month, namely was treated in the hospital for acute hypokalemia secondary to GI volume loss and has since finished antibiotics for associated colitis. She had no symptoms of diarrhea here in the emergency department, last normal bowel movement was this morning and unremarkable. Is not reporting any associated vomiting, no chest pain or shortness of breath. She does note that she had been having coughing fits prior to onset of the left chest pain, which on exam is easily reproducible to palpation with no step-off deformity of the ribs. There is no appreciable abdominal swelling. Blood pressure is much improved here compared to prior, and overall labs have been stable. Decadron was administered, she is diabetic. Fentanyl and Toradol only minimally relieved the pain, she is noted to be rubbing the area throughout the ED stay. I do suspect with the reproducibility of this, and it being accompanied by cough that she is dealing with acute costochondritis. X-ray does not show any fracture or underlying abnormality, no abnormality appreciated to the left upper abdominal region either. Her blood work is all stable, potassium 3.1. Ultimately she is stable for discharge home, she refused to give a urine here. I did discuss with her general return precautions and she has follow-up appointment with primary care next week which she will attend for reevaluation. Lab Data 03/07/25 12:48 03/07/25 12:48 Labs/Radiology: Radiology Impressions Ribs X-Ray 03/07/25 12:46 IMPRESSION: No acute fracture or dislocation. Laboratory Results WBC 10.15 10^3/uL (3.29-11.43) 03/07/25 12:48 RBC 4.79 10^6/uL (3.85-5.65) 03/07/25 12:48 Hgb 13.20 g/dL (11.27-16.99) 03/07/25 12:48 Hct 39.6 % (36-47) 03/07/25 12:48 MCV 82.7 fl (85-98) L 03/07/25 12:48 MCH 27.6 pg (27-33) 03/07/25 12:48 MCHC 33.3 g/dL (30-55) 03/07/25 12:48 RDW 16.0 % (12.1-15.1) H 03/07/25 12:48 Plt Count 229 10^3/cmm (157-399) 03/07/25 12:48 MPV 10.9 fL (7.4-10.4) H 03/07/25 12:48 Neut % (Auto) 67.8 % 03/07/25 12:48 Lymph % (Auto) 23.6 % 03/07/25 12:48 [place] % (Auto) 5.5 % 03/07/25 12:48 Eos % (Auto) 2.2 % 03/07/25 12:48 Baso % (Auto) 0.6 % 03/07/25 12:48 Neut # (Auto) 6.88 10^3/uL (1.8-7.7) 03/07/25 12:48 Lymph # (Auto) 2.4 10^3/uL (0.8-4.8) 03/07/25 12:48 [place] # (Auto) 0.6 10^3/uL (0.2-0.9) 03/07/25 12:48 Eos # (Auto) 0.2 10^3/uL (0.0-0.8) 03/07/25 12:48 Baso # (Auto) 0.1 10^3/uL (0.0-0.1) 03/07/25 12:48 Nucleated RBC % (auto) 0 % 03/07/25 12:48 Nucleated RBCs # 0.0 /100WBC 03/07/25 12:48 Sodium 136 mmol/L (136-145) 03/07/25 12:48 Potassium 3.1 mmol/L (3.5-5.1) L 03/07/25 12:48 Chloride 94 mmol/L (98-107) L 03/07/25 12:48 Carbon Dioxide 24 mmol/L (22-29) 03/07/25 12:48 Anion Gap 21.1 (5-19) H 03/07/25 12:48 BUN 12 mg/dL (8-23) 03/07/25 12:48 Creatinine 1.0 mg/dL (0.5-0.9) H 03/07/25 12:48 GFR Calculation 55.5 mL/min (90-130) L 03/07/25 12:48 Glucose 220 mg/dL (65-115) H 03/07/25 12:48 Calculated Osmolality 289 mOsm/kg (285-295) 03/07/25 12:48 Calcium 10.1 mg/dL (8.5-10.5) 03/07/25 12:48 Total Bilirubin 0.3 mg/dL (0.15-1.2) 03/07/25 12:48 AST 19 U/L (0-32) 03/07/25 12:48 ALT 17 U/L (0-33) 03/07/25 12:48 Alkaline Phosphatase 125 U/L (35-105) H 03/07/25 12:48 Total Protein 8.6 g/dL (6.6-8.7) 03/07/25 12:48 Albumin 4.7 g/dL (3.5-5.2) 03/07/25 12:48 Globulin 3.9 g/dL (1.3-4.6) 03/07/25 12:48 Lipase 104 U/L (13-60) H 03/07/25 12:48 All radiology interpretation(s) finalized by discharge Discharge Plan Discharge Patient Disposition: Home Clinical Impression: Acute costochondritis Condition: Stable Prescriptions: No Action glimepiride 4 mg tablet 4 mg PO QPM omeprazole 40 mg capsule,delayed release(DR/EC) 40 mg PO DAILY@20 acetaminophen [Tylenol Extra Strength] 500 mg Tablet 1,500 mg PO DAILY PRN (Reason: Pain) famotidine 40 mg tablet 40 mg PO DAILY metoprolol succinate 100 mg tablet extended release 24 hr 100 mg PO DAILY ropinirole 0.5 mg tablet 0.5 mg PO BID ezetimibe 10 mg tablet 10 mg PO DAILY duloxetine 30 mg capsule,delayed release(DR/EC) 30 mg PO BEDTIME amlodipine 5 mg Tablet 5 mg PO DAILY Qty: 30 0RF ciprofloxacin HCl 500 mg Tablet 500 mg PO BID@0900,2100 Qty: 6 0RF aspirin 81 mg Tablet,Delayed Release (Dr/Ec) 81 mg PO DAILY Qty: 30 0RF spironolactone 25 mg Tablet 25 mg PO BID Qty: 60 0RF docusate sodium 100 mg Capsule 100 mg PO BID Qty: 60 0RF hydralazine 50 mg Tablet 100 mg PO BID Qty: 120 0RF Rx Instructions: if SBP below 120 take 50 mg bid or skip valsartan 160 mg tablet 160 mg PO BID Qty: 60 0RF metronidazole 500 mg tablet 500 mg PO TID Qty: 15 0RF Discharge Orders: Discharge ED (Routine); Ordered 03/07/25 Ordered By: Jomar Landin Referrals: Italo Colindres DO [Primary Care Provider, Family Practice] Patient Instructions: Patient Portal & Sawyer Instructions Activity Restrictions/Additional Instructions: Costochondritis Discharge Instructions You have been diagnosed with costochondritis, which is inflammation of the cartilage connecting your ribs to your breastbone. This condition is benign and usually improves over time, but it can cause chest pain and tenderness. Home Management: - Pain Relief: You may use acetaminophen (Tylenol) as directed for pain. Short-term use of NSAIDs (such as ibuprofen or naproxen) may be considered if your kidney function is normal and you do not have stomach ulcers or bleeding risk. If NSAIDs are used, take the lowest effective dose for the shortest duration, and consider a stomach-protecting medication (such as a proton pump inhibitor) if you have risk factors for gastrointestinal issues. - Topical Treatments: Topical NSAIDs (such as diclofenac gel), capsaicin cream, or menthol-containing ointments may help with localized pain and have fewer systemic side effects. - Activity: Avoid activities that worsen your chest pain, such as heavy lifting or strenuous upper body movements. Gentle exercise, stretching, and physical therapy can help improve function and reduce pain. - Non-Pharmacologic Options: Relaxation techniques (such as diaphragmatic breathing or progressive muscle relaxation), heat or cold packs, and gentle massage may provide additional relief. - Reassurance: Costochondritis is not related to heart disease, but if you develop new symptoms such as shortness of breath, severe chest pain, or palpitations, seek medical attention immediately. Diabetes Considerations: - Steroid medications are avoided because they can raise blood sugar levels. Monitor your blood glucose closely, especially if taking NSAIDs, as these can sometimes affect kidney function. Follow-Up: - Most cases resolve within weeks. If your pain persists beyond 2-3 weeks, worsens, or you develop new symptoms, contact your healthcare provider for further evaluation. When to Seek Help: - Call your doctor or go to the emergency room if you experience chest pain that is severe, associated with shortness of breath, fainting, or sweating. Summary: With rest, pain management, and gentle activity, most people recover fully from costochondritis. These instructions are based on current evidence for musculoskeletal chest pain management in older adults and those with diabetes. Print Language: Mongolian Coding Level of Care Code ED Medical [employer] for [employer] Documented by User: Ralf Granados DO 03/07/25 15:52 HPI - Abdominal Pain General: Chief Complaint: Abdominal Pain Stated Complaint: lt swollen/tender Time Seen by Provider: 03/07/25 12:36 Related Data Home Medications ?Medication ?Instructions ?Recorded ?Confirmed glimepiride 4 mg tablet 4 mg PO QPM 09/09/19 02/20/25 acetaminophen 500 mg tablet 1,500 mg PO DAILY PRN Pain 08/03/20 02/20/25 (Tylenol Extra Strength) omeprazole 40 mg capsule,delayed 40 mg PO DAILY@20 08/03/20 02/20/25 release duloxetine 30 mg capsule,delayed 30 mg PO BEDTIME 02/18/25 02/20/25 release ezetimibe 10 mg tablet 10 mg PO DAILY 02/18/25 02/20/25 famotidine 40 mg tablet 40 mg PO DAILY 02/18/25 02/20/25 metoprolol succinate 100 mg 100 mg PO DAILY 02/18/25 02/20/25 tablet,extended release 24 hr ropinirole 0.5 mg tablet 0.5 mg PO BID 02/18/25 02/20/25 Previous Rx's ?Medication ?Instructions ?Recorded amlodipine 5 mg tablet 5 mg PO DAILY #30 tabs 02/19/25 aspirin 81 mg tablet,delayed 81 mg PO DAILY #30 tabs 02/19/25 release ciprofloxacin HCl 500 mg tablet 500 mg PO BID@0900,2100 #6 tabs 02/19/25 docusate sodium 100 mg capsule 100 mg PO BID #60 caps 02/19/25 hydralazine 50 mg tablet 100 mg (2 x 50 mg) PO BID #120 tabs 02/19/25 metronidazole 500 mg tablet 500 mg PO TID #15 tabs 02/19/25 spironolactone 25 mg tablet 25 mg PO BID #60 tabs 02/19/25 valsartan 160 mg tablet 160 mg PO BID #60 tabs 02/19/25 Allergies Allergy/AdvReac Type Severity Reaction Status Date / Time atorvastatin (From Lipitor) Allergy Unknown Verified 02/17/25 19:07 codeine Allergy hives Verified 02/17/25 19:06 morphine Allergy rash Verified 02/17/25 19:06 pantoprazole (From Protonix) Allergy ALGY-Redness Verified 02/17/25 19:06 of Skin Penicillins Allergy boils Verified 02/17/25 19:06 sulfamethoxazole (From Allergy disoriented Verified 02/17/25 19:06 Bactrim) trimethoprim (From Bactrim) Allergy disoriented Verified 02/17/25 19:06 onion AdvReac Intermediate throat Verified 02/17/25 19:06 swells PFSH ED PFSH: Medical History Diabetic retinopathy Neuropathy Dyslipidemia Hypertension Diabetes mellitus Lumbar disc disease Spondylolisthesis of cervical region Stenosis of cervical spine with myelopathy Cervical disc disorder with myelopathy of mid-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 Lumbar post-laminectomy syndrome Surgical History History of cholecystectomy 1999 History of colonoscopy 2010 History of lumbosacral spine surgery 2012 L5-S1 decompression History of fusion of cervical spine (06/05/16) C5-C6, C6-C7 ACDFF Family History Grandmother Cancer Diabetes Heart disease Mother Osteoarthritis Social History Smoking and tobacco/nicotine status: never used tobacco/nicotine Alcohol intake: never Substance/Drug Use: never Household members: children Marital status: / Current occupational status: disabled Course Vital Signs: Vital signs: Vital Signs Temperature 97.8 F 03/07/25 12:23 Pulse Rate 108 H 03/07/25 12:23 Respiratory Rate 18 03/07/25 12:23 Blood Pressure 147/84 03/07/25 12:23 Pulse Oximetry 98 03/07/25 12:23 Oxygen Delivery Me thod Room Air 03/07/25 12:23 MDM - Abdominal Pain Medical Decision Making Patient presented complaining of left upper abdomen/left rib pain and reports of abdominal swelling for the past couple days. She has been seen here in the emergency department multiple times over the past month, namely was treated in the hospital for acute hypokalemia secondary to GI volume loss and has since finished antibiotics for associated colitis. She had no symptoms of diarrhea here in the emergency department, last normal bowel movement was this morning and unremarkable. Is not reporting any associated vomiting, no chest pain or shortness of breath. She does note that she had been having coughing fits prior to onset of the left chest pain, which on exam is easily reproducible to palpation with no step-off deformity of the ribs. There is no appreciable abdominal swelling. Blood pressure is much improved here compared to prior, and overall labs have been stable. Decadron was administered, she is diabetic. Fentanyl and Toradol only minimally relieved the pain, she is noted to be rubbing the area throughout the ED stay. I do suspect with the reproducibility of this, and it being accompanied by cough that she is dealing with acute costochondritis. X-ray does not show any fracture or underlying abnormality, no abnormality appreciated to the left upper abdominal region either. Her blood work is all stable, potassium 3.1. Ultimately she is stable for discharge home, she refused to give a urine here. I did discuss with her general return precautions and she has follow-up appointment with primary care next week which she will attend for reevaluation. Chart reviewed and patient discussed with midlevel. Agree with assessment and plan. Lab Data 03/07/25 12:48 03/07/25 12:48 Labs/Radiology: Radiology Impressions Ribs X-Ray 03/07/25 12:46 IMPRESSION: No acute fracture or dislocation. Laboratory Results WBC 10.15 10^3/uL (3.29-11.43) 03/07/25 12:48 RBC 4.79 10^6/uL (3.85-5.65) 03/07/25 12:48 Hgb 13.20 g/dL (11.27-16.99) 03/07/25 12:48 Hct 39.6 % (36-47) 03/07/25 12:48 MCV 82.7 fl (85-98) L 03/07/25 12:48 MCH 27.6 pg (27-33) 03/07/25 12:48 MCHC 33.3 g/dL (30-55) 03/07/25 12:48 RDW 16.0 % (12.1-15.1) H 03/07/25 12:48 Plt Count 229 10^3/cmm (157-399) 03/07/25 12:48 MPV 10.9 fL (7.4-10.4) H 03/07/25 12:48 Neut % (Auto) 67.8 % 03/07/25 12:48 Lymph % (Auto) 23.6 % 03/07/25 12:48 [place] % (Auto) 5.5 % 03/07/25 12:48 Eos % (Auto) 2.2 % 03/07/25 12:48 Baso % (Auto) 0.6 % 03/07/25 12:48 Neut # (Auto) 6.88 10^3/uL (1.8-7.7) 03/07/25 12:48 Lymph # (Auto) 2.4 10^3/uL (0.8-4.8) 03/07/25 12:48 [place] # (Auto) 0.6 10^3/uL (0.2-0.9) 03/07/25 12:48 Eos # (Auto) 0.2 10^3/uL (0.0-0.8) 03/07/25 12:48 Baso # (Auto) 0.1 10^3/uL (0.0-0.1) 03/07/25 12:48 Nucleated RBC % (auto) 0 % 03/07/25 12:48 Nucleated RBCs # 0.0 /100WBC 03/07/25 12:48 Sodium 136 mmol/L (136-145) 03/07/25 12:48 Potassium 3.1 mmol/L (3.5-5.1) L 03/07/25 12:48 Chloride 94 mmol/L (98-107) L 03/07/25 12:48 Carbon Dioxide 24 mmol/L (22-29) 03/07/25 12:48 Anion Gap 21.1 (5-19) H 03/07/25 12:48 BUN 12 mg/dL (8-23) 03/07/25 12:48 Creatinine 1.0 mg/dL (0.5-0.9) H 03/07/25 12:48 GFR Calculation 55.5 mL/min (90-130) L 03/07/25 12:48 Glucose 220 mg/dL (65-115) H 03/07/25 12:48 Calculated Osmolality 289 mOsm/kg (285-295) 03/07/25 12:48 Calcium 10.1 mg/dL (8.5-10.5) 03/07/25 12:48 Total Bilirubin 0.3 mg/dL (0.15-1.2) 03/07/25 12:48 AST 19 U/L (0-32) 03/07/25 12:48 ALT 17 U/L (0-33) 03/07/25 12:48 Alkaline Phosphatase 125 U/L (35-105) H 03/07/25 12:48 Total Protein 8.6 g/dL (6.6-8.7) 03/07/25 12:48 Albumin 4.7 g/dL (3.5-5.2) 03/07/25 12:48 Globulin 3.9 g/dL (1.3-4.6) 03/07/25 12:48 Lipase 104 U/L (13-60) H 03/07/25 12:48 Discharge Plan Discharge Patient Disposition: Home Clinical Impression: Acute costochondritis Condition: Stable Prescriptions: No Action glimepiride 4 mg tablet 4 mg PO QPM omeprazole 40 mg capsule,delayed release(DR/EC) 40 mg PO DAILY@20 acetaminophen [Tylenol Extra Strength] 500 mg Tablet 1,500 mg PO DAILY PRN (Reason: Pain) famotidine 40 mg tablet 40 mg PO DAILY metoprolol succinate 100 mg tablet extended release 24 hr 100 mg PO DAILY ropinirole 0.5 mg tablet 0.5 mg PO BID ezetimibe 10 mg tablet 10 mg PO DAILY duloxetine 30 mg capsule,delayed release(DR/EC) 30 mg PO BEDTIME amlodipine 5 mg Tablet 5 mg PO DAILY Qty: 30 0RF ciprofloxacin HCl 500 mg Tablet 500 mg PO BID@0900,2100 Qty: 6 0RF aspirin 81 mg Tablet,Delayed Release (Dr/Ec) 81 mg PO DAILY Qty: 30 0RF spironolactone 25 mg Tablet 25 mg PO BID Qty: 60 0RF docusate sodium 100 mg Capsule 100 mg PO BID Qty: 60 0RF hydralazine 50 mg Tablet 100 mg PO BID Qty: 120 0RF Rx Instructions: if SBP below 120 take 50 mg bid or skip valsartan 160 mg tablet 160 mg PO BID Qty: 60 0RF metronidazole 500 mg tablet 500 mg PO TID Qty: 15 0RF Discharge Orders: Discharge ED (Routine); Ordered 03/07/25 Ordered By: Jomar Landin Referrals: Italo Colindres DO [Primary Care Provider, Family Practice] Patient Instructions: Patient Portal & Sawyer Instructions Activity Restrictions/Additional Instructions: Costochondritis Discharge Instructions You have been diagnosed with costochondritis, which is inflammation of the cartilage connecting your ribs to your breastbone. This condition is benign and usually improves over time, but it can cause chest pain and tenderness. Home Management: - Pain Relief: You may use acetaminophen (Tylenol) as directed for pain. Short-term use of NSAIDs (such as ibuprofen or naproxen) may be considered if your kidney function is normal and you do not have stomach ulcers or bleeding risk. If NSAIDs are used, take the lowest effective dose for the shortest duration, and consider a stomach-protecting medication (such as a proton pump inhibitor) if you have risk factors for gastrointestinal issues. - Topical Treatments: Topical NSAIDs (such as diclofenac gel), capsaicin cream, or menthol-containing ointments may help with localized pain and have fewer systemic side effects. - Activity: Avoid activities that worsen your chest pain, such as heavy lifting or strenuous upper body movements. Gentle exercise, stretching, and physical therapy can help improve function and reduce pain. - Non-Pharmacologic Options: Relaxation techniques (such as diaphragmatic breathing or progressive muscle relaxation), heat or cold packs, and gentle massage may provide additional relief. - Reassurance: Costochondritis is not related to heart disease, but if you develop new symptoms such as shortness of breath, severe chest pain, or palpitations, seek medical attention immediately. Diabetes Considerations: - Steroid medications are avoided because they can raise blood sugar levels. Monitor your blood glucose closely, especially if taking NSAIDs, as these can sometimes affect kidney function. Follow-Up: - Most cases resolve within weeks. If your pain persists beyond 2-3 weeks, worsens, or you develop new symptoms, contact your healthcare provider for further evaluation. When to Seek Help: - Call your doctor or go to the emergency room if you experience chest pain that is severe, associated with shortness of breath, fainting, or sweating. Summary: With rest, pain management, and gentle activity, most people recover fully from costochondritis. These instructions are based on current evidence for musculoskeletal chest pain management in older adults and those with diabetes. Print Language: Mongolian Coding Level of Care Code ED [employer] for [facility] Ashby
[2025-03-07 12:55] LABS: Hematocrit 39.6 % (36-47); Hemoglobin 13.20 g/dL (11.27-16.99); Mean Corpuscular HGB Conc 33.3 g/dL (30-55); Mean Corpuscular Hemoglobin 27.6 pg (27-33); Mean Corpuscular Volume 82.7 fl (85-98); Nucleated Red Blood Cells % 0 %; Platelet Count 229 10^3/cmm (157-399); Red Blood Count 4.79 10^6/uL (3.85-5.65); White Blood Count 10.15 10^3/uL (3.29-11.43)
[2025-03-07] MEDS: fentaNYL 50 mcg/mL INJ 2mL IVP (12:58)
[2025-03-07 13:11] LABS: Alanine Aminotransferase 17 U/L (0-33); Albumin Level 4.7 g/dL (3.5-5.2); Alkaline Phosphatase 125 U/L (35-105); Anion Gap 21.1 (5-19); Aspartate Amino Transferase 19 U/L (0-32); Blood Urea Nitrogen 12 mg/dL (8-23); Calcium 10.1 mg/dL (8.5-10.5); Carbon Dioxide 24 mmol/L (22-29); Chloride 94 mmol/L (98-107); Creatinine Clr Calc Pharmacy 62.0253; Globulin 3.9 g/dL (1.3-4.6); Glucose 220 mg/dL (65-115); Lipase 104 U/L (13-60); Osmolality Calculated 289 mOsm/kg (285-295); Potassium 3.1 mmol/L (3.5-5.1); Sodium 136 mmol/L (136-145); Total Protein 8.6 g/dL (6.6-8.7)
--- NOTE | 2025-03-07 13:53 | PC.NURSE ---
Asked pt for a urine sample twice, pt states she did not need to urinate and has not been urinating much at home. Pt also stated to me you are not sticking anything in me to cath me, either . Reported what the pt said to the provider.
== END 2025-03-07 14:52 | disposition home or self-care (01) ==
PROVIDERS: Emergency Provider Physician Assistant; PCP Electrodiagnostic Medicine
DX: M94.0 Chondrocostal junction syndrome [Tietze] (principal); Z79.82 Long term (current) use of aspirin; E78.5 Hyperlipidemia, unspecified; E11.40 Type 2 diabetes mellitus with diabetic neuropathy, unspecified; E11.319 Type 2 diabetes mellitus with unspecified diabetic retinopathy without macular edema; I10 Essential (primary) hypertension
CPT/HCPCS: 36415; 71100; 80053; 83690; 85025; 96374; 96375; 99284; J1100; J1885; J3010